=== PATIENT | male | born 1970 | race Caucasian/White ===

== ENCOUNTER 2021-10-30 15:41 | Emergency (ER) | payer OTHER, SELFPAY ==
--- NOTE | ~2021-10-30 | XR_ITS ---
EXAMINATION: XR SHOULDER, LEFT CLINICAL INFORMATION: Injury COMPARISON: None TECHNIQUE: Four views of the left shoulder. FINDINGS: The bones and soft tissues are normal. No fracture. Glenohumeral and acromioclavicular alignment is anatomic with normal joint space. No abnormal soft tissue calcifications. XR/XR shoulder LT min 2V IMPRESSION: Normal left shoulder.
--- NOTE | ~2021-10-30 | XR_ITS ---
EXAMINATION: XR HAND, LEFT CLINICAL INFORMATION: Injury. COMPARISON: None. TECHNIQUE: PA, lateral, and oblique views of the left hand. FINDINGS: No acute fractures or malalignment. Carpal rows are maintained. No unexpected radiopaque foreign bodies or subcutaneous air. XR/XR hand LT 2V IMPRESSION: No acute fractures or malalignment.
[2021-10-30 16:27] VITALS: BP 153/99; PULSE 76; RESP 18; TEMP 36.6; O2SAT 98; BMI 24.3
--- NOTE | 2021-10-31 04:11 | PC.NURSE ---
patient reporting to registration, stating that they are still in the waiting room, patient fell asleep and did not respond when name was called hours ago by triage nurse
--- NOTE | 2021-10-31 07:39 | ED.EXTPRO ---
HPI - Extremity Problem General Chief complaint: Extremity Injury, Upper Stated complaint: L Shoulder pain Time Seen by Provider: 10/31/21 07:39 Source: patient Mode of arrival: ambulatory Limitations: no limitations History of Present Illness MD Complaint: extremity pain and joint paint Onset (ago): day(s) (1) Pain Consistency: constant Location: left and upper extremity (L shoulder, L index finger) Quality: aching and dull Radiation: none Relieving factors: nothing Exacerbating factors: range of motion and exertion Associated symptoms: denies other symptoms Context: other (happened while doing finger push ups at home) Related Data Previous Rx's Medication Instructions Recorded diazepam 5 mg tablet (Valium) 5 mg PO TID PRN #12 tab 10/31/21 ibuprofen 600 mg tablet 600 mg PO Q6H PRN #30 tab 10/31/21 lidocaine 5 % topical patch 1 patch TOPICAL DAILY #30 ea 10/31/21 Allergies Allergy/AdvReac Type Severity Reaction Status Date / Time No Known Allergies Allergy Verified 10/30/21 16:27 Review of Systems Review of Systems: Constitutional : No Fever, No Chills ENT/Mouth : No Ear Pain, No Hoarseness, No sore throat Eyes: No Eye Pain, No Swelling, No Redness, No Foreign Body Cardiovascular : No Chest Pain, No SOB Respiratory : No Cough, No Dyspnea Gastrointestinal : No Nausea, No Vomiting, No Diarrhea, No abdominal Pain Genitourinary : No Dysuria, No Hematuria Musculoskeletal : positive joint pain, No Myalgias, No Joint Swelling Skin : No Skin lacerations, No rash Neuro : No Weakness, No Numbness, No Loss of Consciousness, No Dizziness, No Headache Psych : No Anxiety/Panic, No Depression Heme/Lymph: no easy bruising, no Lymphadenopathy Endocrine : No Polyuria, No Polydipsia All other systems reviewed and are negative PMFSH Past Medical History Medical History (Updated 10/31/21 @ 08:09 by Nikole Padron DO) No known health problems Social History Social History Patient Tobacco Use Status: Current everyday Tobacco user Physical Exam Vital Signs: Vital Signs: Last Vital Signs Temp 98 F 10/30/21 16:27 Pulse 76 10/30/21 16:27 Resp 18 10/30/21 16:27 BP 153/99 H 10/30/21 16:27 Pulse Ox 98 10/30/21 16:27 BMI result Body Mass Index 24.3 Appearance: Alert. Oriented X3. No acute distress. Eyes: Pupils equal, round and reactive to light. ENT: Pharynx normal. Neck: Normal inspection. Neck supple. CVS: Normal heart rate and rhythm. Pulses normal. Respiratory: No respiratory distress. Breath sounds normal. Abdomen: Soft and non-tender. Skin: Skin warm and dry. Normal skin color. Extremities: No lower extremity edema. L shoulder - pain with ROM cannot abduct or extend or keep elevated against external pressures. L index finger cannot make O or pincer grasp and maintain [place] against pressure, pain at MCP - distal NV intact Neuro: Oriented X 3. No motor deficit. No sensory deficit. MDM - Extremity (Nontraumatic) MDM Narrative Medical decision making narrative: 51 yo male with LUE non dominant hand injuries to L shoulder after doing push ups on fingertips he notes L index finger cannot strongly abduct it as it gave out doing push up he is NV intact suspect ligament injury - will place in splint and refer to ortho, also has pain with L shoulder distal NV intact - suspect rotator cuff injury Procedures Orthopedic Splinting/Casting Injury #1: Side: left Upper Extremity Injury Location: finger (index) Upper Extremity Immobilizer: volar splint and finger (other) Discharge Plan Discharge Clinical Impression: Injury of collateral ligament of finger Qualifiers: Encounter type: initial encounter Laterality: left Qualified Code(s): S69.92XA - Unspecified injury of left wrist, hand and finger(s), initial encounter Injury of left rotator cuff Qualifiers: Encounter type: initial encounter Qualified Code(s): S46.002A - Unspecified injury of muscle(s) and tendon(s) of the rotator cuff of left shoulder, initial encounter Patient Disposition: Home, Self-Care Additional Instructions: return to ED for any worsening symptoms or concerns wear splint until released you will need to see your primary care doctor for your rotator cuff and undergo physical therapy and likely MRI Prescriptions: New ibuprofen 600 mg tablet 600 mg PO Q6H PRN (Reason: pain) Qty: 30 RF: 0 diazepam [Valium] 5 mg tablet 5 mg PO TID PRN (Reason: muscle spasm) Qty: 12 RF: 0 lidocaine 5 % adhesive patch,medicated 1 patch topical DAILY Qty: 30 RF: 0 Stand Alone Forms: Work/School Release Interventions: LWBS Worksheet Last Done: 10/31/21 03:04
[2021-10-31 08:06] VITALS: BP 136/93; PULSE 77; RESP 18; O2SAT 97
[2021-10-31] MEDS: Ketorolac Tromethamine 60 MG/2 ML VIAL IM (08:12)
== END 2021-10-31 08:33 | disposition home or self-care (01) ==
PROVIDERS: Emergency Provider Emergency Medicine; PCP Internal Medicine
DX: S46.002A Unspecified injury of muscle(s) and tendon(s) of the rotator cuff of left shoulder, initial encounter (principal); S69.92XA Unspecified injury of left wrist, hand and finger(s), initial encounter; X50.1XXA Overexertion from prolonged static or awkward postures, initial encounter; Y93.B2 Activity, push-ups, pull-ups, sit-ups; Y92.019 Unspecified place in single-family (private) house as the place of occurrence of the external cause; Y99.9 Unspecified external cause status
CPT/HCPCS: 29125; 73030; 73120; 96372; 99284; J1885

== ENCOUNTER 2021-11-17 12:56 | Emergency (ER) | payer OTHER, SELFPAY ==
--- NOTE | ~2021-11-17 | XR_ITS ---
EXAMINATION: XR SHOULDER, LEFT CLINICAL INFORMATION: Left shoulder injury. COMPARISON: None TECHNIQUE: AP external rotation, Grashey, scapular Y, and axillary views of the left shoulder. FINDINGS: The bones and soft tissues are normal. No fracture. Glenohumeral and acromioclavicular alignment is anatomic with normal joint space. No abnormal soft tissue calcifications. XR/XR shoulder LT 1V IMPRESSION: Unremarkable left shoulder.
[2021-11-17 13:00] VITALS: BP 148/98; PULSE 109; RESP 17; TEMP 36.9; O2SAT 96; BMI 24.3
--- NOTE | 2021-11-17 14:54 | ED_ITS ---
HPI - Extremity Problem General Chief complaint: Extremity Problem Stated complaint: l shoulder/arm pain Time Seen by Provider: 11/17/21 14:54 Source: patient Mode of arrival: ambulatory Limitations: no limitations History of Present Illness HPI Narrative: Patient is a 51 year old male presenting to the emergency department today with left shoulder pain. Patient states that earlier this month, the patient was doing finger push ups and injured his left thumb and left shoulder. Patient states that it was getting better, then he reached for something quickly with his left hand, and now he is having pain in his left shoulder again. Patient states that he has an appointment with his primary care provider at the end of November. Patient states that he would like something to help him sleep. Patient denies any dizziness, lightheadedness, abdominal pain, nausea, vomiting, fever, chills, blurry vision, double vision, loss of vision, chest pain, difficulty breathing, shortness of breath, back pain, night sweats, pain with urination, increased urinary frequency, increased urinary urgency, blood in his urine or stool, syncope or a near syncopal episode, recent trauma or falls, bowel incontinence, bladder incontinence, bowel retention, bladder retention, or any other complaints at this time. MD Complaint: extremity pain Onset (ago): day(s) Pain Consistency: intermittent Location: left Severity scale (1-10): 3 Quality: dull Radiation: none Relieving factors: nothing Exacerbating factors: nothing Associated symptoms: denies other symptoms Related Data Previous Rx's Medication Instructions Recorded diazepam 5 mg tablet (Valium) 5 mg PO TID PRN #12 tab 10/31/21 ibuprofen 600 mg tablet 600 mg PO Q6H PRN #30 tab 10/31/21 lidocaine 5 % topical patch 1 patch TOPICAL DAILY #30 ea 10/31/21 cyclobenzaprine 10 mg tablet 10 mg PO TID 7 Days #21 tab 11/17/21 cyclobenzaprine 10 mg tablet 10 mg PO TID PRN 7 Days tab 11/17/21 Allergies Allergy/AdvReac Type Severity Reaction Status Date / Time No Known Allergies Allergy Verified 10/30/21 16:27 Review of Systems Constitutional: Constitutional: Reports no additional constitutional complaints, Denies chills, Denies fever(s) and Denies night sweats Eyes: Eyes: Reports no additional eye complaints, Denies blurry vision, Denies change in vision, Denies diplopia, Denies eye discharge, Denies loss of vision and Denies eye pain ENT: Denies dizziness Cardiovascular: Cardiovascular: Reports no additional cardiovascular complaints, Denies chest pain, Denies lightheadedness, Denies Loss of Consciousness and Denies dyspnea Respiratory: Respiratory: Reports no additional respiratory complaints and Denies dyspnea Gastrointestinal: Gastrointestinal: Reports no additional gastrointestinal complaints, Denies abdominal pain, Denies melena, Denies hematochezia, Denies change in bowel habits and Denies change in stool character Genitourinary: Genitourinary: Reports no additional male genitourinary complaints, Denies hematuria, Denies oliguria, Denies difficulty urinating, Denies dysuria, Denies urinary frequency, Denies urinary hesitancy, Denies urinary incontinence and Denies urinary urgency Musculoskeletal: Musculoskeletal: Reports no additional musculoskeletal complaints, Reports arthralgias (left shoulder pain), Denies numbness and Denies tingling Neurologic: Denies dizziness, Denies loss of vision, Denies numbness and Denies tingling Psychiatric: Psychiatric: Reports no additional psychiatric complaints Endocrine: Endocrine: Reports no additional endocrine complaints Hematologic/Lymphatic: Hematologic/Lymphatic: Reports no additional h ematologic/lymphatic complaints Allergic/Immunologic: Allergic/Immunologic: Reports no additional allergic/immunologic complaints PMFSH Past Medical History Attestation statement: The following information was validated with the patient. Medical History No known health problems Social History Social History Patient Tobacco Use Status: Current everyday Tobacco user Advance Directives: No Advance Directives Information Provided: No Physical Exam Vital Signs: Vital Signs: Last Vital Signs Temp 98.5 F 11/17/21 13:00 Pulse 109 H 11/17/21 13:00 Resp 17 11/17/21 13:00 BP 148/98 H 11/17/21 13:00 Pulse Ox 96 11/17/21 13:00 BMI result Body Mass Index 24.3 Const: General: cooperative, no acute distress, alert and awake Nutritional Appearance: well nourished Orientation/consciousness: patient oriented x3 Limitations: no limitations HENMT: Head: Yes normal to inspection and Yes atraumatic Ears: hearing grossly normal bilaterally and external ears normal General nose exam: Normal external nose present, no nasal discharge noted and no epistaxis Face and sinus: Yes normal facial exam, No abrasion and No laceration Mouth: Normal oral and palatal mucosa present, no drooling and no muffled voice Eyes: General: appearance normal, both eyes and all related structures Periorbital: periorbital findings normal Eyelids: Yes eyelids normal Conjunctivae: conjunctivae normal Pupils: Equal, round and reactive pupils present EOM: EOMs intact bilaterally Neck: Neck: Yes normal visual inspection, Yes full ROM and Yes no lymphadenopathy Chest: Chest palpation & inspection: normal inspection of the chest Resp: Effort & Inspection: normal respiratory effort and able to speak in complete sentences GI: Inspection: Yes normal to inspection Neuro: General: patient oriented x3 and moves all extremities Cranial nerves: Yes Equal, round and reactive pupils present Cognition (Neuro): normal cognition Motor exam (neuro): 5/5 motor strength present throughout Sensory Exam: Normal double simultaneous stimulation for sensation Coordinati on: [id number] test normal Extrem: General: Yes normal to inspection, Yes full ROM and Yes capillary refill normal Psych: Appearance: grossly normal Mental Status: mental status grossly normal Affect: normal affect Attitude: cooperative Thought process: Normal thought process present Thought content: Normal thought content present Insight: Good insight present (Psych) Course Course Course Narrative: left shoulder x-ray negative for any acute process MDM - Extremity (Nontraumatic) MDM Narrative Medical decision making narrative: Patient is a 51 year old male presenting to the emergency department today with left shoulder pain. Patient's physical exam was unremarkable. I explained my physical exam findings to the patient. I answered all questions asked by the patient. Patient's left arm was placed in a sling, without incident, by nursing staff. I stressed the importance of the patient taking his medication as prescribed. I stressed the importance of the patient following up with his primary care provider and an orthopedic provider. I stressed the importance of the patient returning to the emergency department immediately if his symptoms were to worsen or if he were to develop any dizziness, shortness of breath, difficulty breathing, chest pain, blurry vision, loss of vision, nausea, vomiting, abdominal pain, fever, chills, back pain, or any other complaints. Patient verbalized agreement and understanding with this treatment plan and discharge. Differential Diagnosis Differential diagnosis: Unlikely gout (rotator cuff injury, rotator cuff strain, rotator cuff sprain) Medical Records Attestation: I reviewed the patient's medical records. Discharge Plan Discharge Clinical Impression: Rotator cuff injury Qualifiers: Laterality: left Qualified Code(s): S46.002D - Unspecified injury of muscle(s) and tendon(s) of the rotator cuff of left shoulder, subsequent encounter Patient Disposition: Home, Self-Care Instructions: Rotator Cuff Injury (ED) Additional Instructions: Call to schedule a follow up appointment with an Orthopedic provider. Prescriptions: New cyclobenzaprine 10 mg tablet 10 mg PO TID PRN (Reason: muscle spasm) 7 Days RF: 0 cyclobenzaprine 10 mg tablet 10 mg PO TID 7 Days Qty: 21 RF: 0 No Action ibuprofen 600 mg tablet 600 mg PO Q6H PRN (Reason: pain) Qty: 30 RF: 0 diazepam [Valium] 5 mg tablet 5 mg PO TID PRN (Reason: muscle spasm) Qty: 12 RF: 0 lidocaine 5 % adhesive patch,medicated 1 patch topical DAILY Qty: 30 RF: 0 Referrals: Ramon Chow MD, DO [Primary Care Provider] - 2 days Interventions: ED Discharge Assessment Last Done: 11/17/21 15:42 Discharge Date/Time: 11/17/21 15:43 Print Language: Mexican
[2021-11-17] MEDS: Cyclobenzaprine HCl 10 MG TABLET PO (15:22)
[2021-11-17] MEDS: Ketorolac Tromethamine 30 MG/ML VIAL IM (15:22)
== END 2021-11-17 15:43 | disposition home or self-care (01) ==
PROVIDERS: Emergency Provider Emergency Medicine; PCP Internal Medicine
DX: S46.002D Unspecified injury of muscle(s) and tendon(s) of the rotator cuff of left shoulder, subsequent encounter (principal); X50.9XXD Other and unspecified overexertion or strenuous movements or postures, subsequent encounter; F17.200 Nicotine dependence, unspecified, uncomplicated
CPT/HCPCS: 73020; 96372; 99284; J1885

== ENCOUNTER → 2021-12-22 08:55 | Outpatient (BNVA) | payer OTHER, SELFPAY | PROVIDERS: PCP Internal Medicine; Visit Provider Physician Assistant | DX: M75.102 Unspecified rotator cuff tear or rupture of left shoulder, not specified as traumatic (principal); M12.812 Other specific arthropathies, not elsewhere classified, left shoulder | CPT/HCPCS: 99202 ==

== ENCOUNTER 2022-01-05 18:45 | Outpatient (REF) | payer OTHER, SELFPAY ==
--- NOTE | ~2022-01-05 | MR_ITS ---
EXAMINATION: MRI SHOULDER WITHOUT CONTRAST, LEFT CLINICAL INFORMATION: Anterior and posterior left shoulder pain. Weakness. COMPARISON: Left shoulder radiographs dated 11/17/2021. TECHNIQUE: Multisequence MR imaging of the left shoulder was obtained without contrast on a high-field strength scanner. FINDINGS: ROTATOR CUFF: Supraspinatus tendinosis with distal bursal surface partial tearing measuring 1.1 x 1.9 cm (AP by ML). No full-thickness rotator cuff tendon tear. No muscle atrophy or fatty infiltration. BICEPS: Mild fluid within the proximal long head biceps tendon sheath, consistent mild tenosynovitis. No measurable tendon defect. CORACOACROMIAL ARCH: The undersurface of the acromion is curved with no subacromial spur. Mild acromioclavicular osteoarthritis. LABRUM/CAPSULE: Fluid extending through the undersurface of the superior labrum, likely indicating a nondisplaced undersurface tear. GLENOHUMERAL JOINT/MARROW: Normal. MR/MR shoulder LT wo con IMPRESSION: 1. Supraspinatus tendinosis with distal bursal surface partial tearing measuring 1.1 x 1.9 cm. 2. Nondisplaced undersurface tear of the superior labrum. 3. Mild proximal long head biceps tenosynovitis without a measurable tendon tear. 4. Mild acromioclavicular osteoarthritis.
== END 2022-01-05 18:46 | disposition home or self-care (01) ==
LOC: HO.MRI 18:45
PROVIDERS: Visit Provider Physician Assistant
DX: M12.812 Other specific arthropathies, not elsewhere classified, left shoulder (principal); M75.102 Unspecified rotator cuff tear or rupture of left shoulder, not specified as traumatic
CPT/HCPCS: 73221

== ENCOUNTER 2022-01-13 08:45 | Outpatient (REF) | payer OTHER, SELFPAY | END 2022-01-13 08:46 | disposition home or self-care (01) | LOC: HO.HOSX 08:45 | PROVIDERS: Visit Provider Orthopaedic Surgery | DX: Z13.89 Encounter for screening for other disorder (principal) ==

== ENCOUNTER → 2022-01-19 09:22 | Outpatient (BNVA) | payer OTHER, SELFPAY | PROVIDERS: PCP Internal Medicine; Visit Provider Physician Assistant | DX: M75.102 Unspecified rotator cuff tear or rupture of left shoulder, not specified as traumatic (principal); M12.812 Other specific arthropathies, not elsewhere classified, left shoulder | CPT/HCPCS: 99212 ==

== ENCOUNTER 2022-01-21 17:00 | Outpatient (RCR) | payer OTHER, SELFPAY ==
--- NOTE | 2022-01-13 12:34 | MHC.PT.EP ---
[facility] [place] Office [place] Office [place] Office [address] [phone] F: [phone] F: [phone] F: [phone] F: [phone] Physical Therapy Plan of Care Date of Evaluation: Date of Surgery: n/a Diagnosis: rotator cuff tear or rupture of L shoulder Assessment: Patient is a 51 year old male presenting to PT with complaints of pain in his L shoulder. Pt reports onset of pain began about 6 weeks ago due to insidious onset. He presents today with impairments in pain, AROM, strength, and posture. 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 Pt expresses alf goal of maintaining ROM and strength, and is motivated to work towards this in PT. Clinical presentation today is most consistent with signs and sx associated with possible RC tear and pt will benefit from skilled PT to address the following problems and impairments noted upon evaluation: pain, AROM, strength, and posture. These problems limit the patient with the following functional activities: ADLs, reaching, lifting, pushing, and pulling. The prescribed treatment plan of care is medically necessary. Co-morbidities of none were identified and taken into considerations of plan of care. Pt was educated on HEP, role of PT, prognosis, POC, shoulder anatomy. Frequency and Duration: The patient will be seen 2 x week x 5 weeks Short Term Goals: Pt will demonstrate shoulder AROM equal B in 3 weeks. Pt will demonstrate improved shoulder strength by 1/3 MMT in all directions in 3 weeks. Pt will demonstrate improved postural awareness by sitting with biomechanically correct posture without cues throughout session to improve overall postural function in 2 weeks. 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 Pt will demonstrate ability to reach OH with min to no pain in 5 weeks for return to PLOF. Pt will demonstrate ability to lift household objects in 5 weeks with min to no difficulty or pain for improved tolerance to household duties. Pt will demonstrate improved SPADI score by 13 points for improved overall UE functional mobility. Treatment Plan: Modalities to reduce pain, spasms and effusion. Manual therapy to restore motion and function. Therapeutic exercise to improve strength and flexibility. Neuromuscular re-education for posture and balance. Therapeutic activities to return to functional activities of daily living. Electronically signed by: Laura Quach PT, DPT, ATC Please sign and return to therapist. Thank you for your referral.
--- NOTE | 2022-01-30 11:12 | MHC.PT.DC ---
[facility] [place] Office [place] Office [place] Office [address] [facility] [phone] F: [phone] F: [phone] F: [phone] F: [phone] Physical Therapy Discharge Report Diagnosis: rotator cuff tear or rupture of L shoulder Date of Surgery: n/a Date of Evaluation: 01/13/22 Date of Discharge: 01/30/22 Treatments to Date: 3 Cancellations to Date: 0 No Shows to Date: 2 Discharge Status: Visit Non-compliance Discharge Summary: Pt has failed to comply with [facility] attendance policy and no showed 2 appointments. Pt status unknown at this time. Electronically signed by: Laura Quach, PT, DPT, ATC Please sign and return to therapist. Thank you for your referral.
== END 2022-01-30 11:12 | disposition home or self-care (01) ==
LOC: HO.PTCHIC 17:00
PROVIDERS: PCP Internal Medicine; Visit Provider Physician Assistant
DX: M12.812 Other specific arthropathies, not elsewhere classified, left shoulder (principal); M75.102 Unspecified rotator cuff tear or rupture of left shoulder, not specified as traumatic
CPT/HCPCS: 97110; 97161

== ENCOUNTER 2022-06-04 20:55 | Emergency (ER) | payer OTHER, SELFPAY ==
--- NOTE | ~2022-06-04 | CT_ITS ---
EXAMINATION: CT FACIAL BONES WITH CONTRAST CLINICAL INFORMATION: Facial cellulitis and abscess. COMPARISON: None TECHNIQUE: Axial CT images of the facial bones were obtained following the IV administration of 85 mL Omnipaque 350 contrast. Sagittal and coronal reformats were provided and reviewed. This CT examination was performed using dose optimization techniques as appropriate, variously including the following: *Automated exposure control *Adjustment of mA and/or kV according to patient size (this includes techniques or standardized protocols for targeted exams where dose is matched to indication/reason for exam; i.e. extremities or head) *Use of iterative reconstruction technique DLP: 485 mGy-cm FINDINGS: Prominent periapical lucency adjacent to the right mandibular second premolar consistent with abscess formation. This extends through the mandibular cortex medially with the defect measuring 0.4 cm in AP dimension (axial image 80/260). There appears to be a small complex collection along the inner margin of the mandible at this level measuring up to 1.5 cm in AP dimension. There is mild hypodensity/possible collection laterally measuring up to 1.7 cm with overlying fat stranding consistent with acute cellulitis. No additional periapical abscess formation. There is no acute maxillofacial fracture. The pterygoid plates are intact. The zygomatic arches are intact. The lamina papyracea are intact. The orbital rims are intact. Mucous retention cyst versus polyp within the right sphenoid sinus. No air-fluid levels are seen. There is minimal rightward deviation of the nasal septum. The ostiomeatal complexes are clear. The lamina papyracea are intact. The ethmoid roofs are symmetric. The carotid canals are normally covered by bone. The mastoid air cells and visualized middle ear cavities are well-aerated. The orbits are normal. The TMJs are unremarkable. The imaged portions of the brain demonstrate no acute abnormality. CT/CT facial bones w con IMPRESSION: Periapical abscess at the right mandibular second premolar with extension through the medial cortex. Probable small abscess formation both medial and lateral to the mandible. Overlying stranding peripheral to the right mandible consistent with cellulitis.
[2022-06-04 21:24] VITALS: BP 111/84; PULSE 108; RESP 16; TEMP 36.6; O2SAT 95; BMI 24.3
[2022-06-05] VITALS: BP 128/87; PULSE 107; RESP 16; O2SAT 97
[2022-06-05 04:28] VITALS: BP 146/98; PULSE 99; RESP 18; TEMP 37.1; O2SAT 97
[2022-06-05 05:16] LABS: Basophils Absolute Auto 0.1 X10*3/uL (0.0-0.2); Basophils Percent Auto 0.4 % (0-2); Eosinophils Absolute Auto 0.3 X10*3/uL (0.0-0.4); Eosinophils Percent Auto 1.7 % (0-4); Hematocrit 47.7 % (42.0-52.0); Hemoglobin 16.7 g/dl (14.0-18.0); Imm Gran Abs Auto 0.05 X10*3/uL (0.00-0.03); Imm Gran Pct Auto 0.3 % (0.0-0.4); Lymphocytes Absolute Auto 1.2 X10*3/uL (1.2-4.9); Lymphocytes Percent Auto 7.9 % (20-40); MANUAL DIFF FLAG NO; Mean Corpuscular Hemoglobin 34.9 pg (27.0-33.0); Mean Corpuscular Volume 99.6 fL (80.0-98.0); Monocytes Absolute Auto 1.3 X10*3/uL (0.1-1.2); Monocytes Percent Auto 8.5 % (2-11); Neutrophils Absolute Auto 12.3 x10*3/uL (2.0-8.3); Neutrophils Percent Auto 81.2 % (45-73); Platelet Count 277 X10*3/uL (160-400); Red Blood Count 4.79 X10*6/uL (4.60-5.80); Red Cell Distribution Width 12.7 % (11.0-16.0); White Blood Count 15.1 X10*3/uL (4.8-10.8)
[2022-06-05] MEDS: 0.9 % Sodium Chloride 1,000 ML 999 ML IV (05:19)
[2022-06-05] MEDS: Piperacillin Sodium/Tazobactam 4.5 GM in 0.9 % Sodium Chloride 100 ML IV (05:21)
[2022-06-05] MEDS: Morphine Sulfate 2 MG/ML CARTRIDGE 1 MG IVPUSH (05:22)
[2022-06-05 05:36] LABS: Lactic Acid 2.2 mmol/L (0.5-2.0)
[2022-06-05] MEDS: Lidocaine HCl 1 % MPF 2 ML VIAL 4 ML INFILTRATI ×2 (05:36→05:58)
[2022-06-05 05:37] LABS: Alanine Aminotransferase 11 U/L (0-40); Albumin Level 4.2 g/dL (3.5-5.0); Alkaline Phosphatase 83 U/L (39-117); Anion Gap 15 (12-20); Aspartate Amino Transferase 15 U/L (5-37); Bilirubin Direct 0.3 mg/dL (0.0-0.5); Bilirubin Total 0.7 mg/dL (0.0-1.0); Blood Urea Nitrogen 6 mg/dL (9-16); Calcium 9.1 mg/dL (8.4-10.2); Carbon Dioxide 24 mmol/L (22-29); Chloride 105 mmol/L (96-108); Creatinine Clr Calc Pharmacy 134.1; Estimated Glomerular Filt Rate > 60; Glucose Random 99 mg/dL (60-115); Lipase 17 U/L (8-78); Potassium 4.2 mmol/L (3.3-5.1); Sodium 140 mmol/L (135-145); Total Protein 6.9 g/dL (6.5-8.0)
[2022-06-05 05:40] LABS: Troponin-I High Sensitivity < 3.5 ng/L (<3.5-35.0)
[2022-06-05] MEDS: HYDROmorphone HCl 1 MG/ML SYRINGE IVPUSH (05:57)
[2022-06-05 06:00] VITALS: BP 137/92; PULSE 96; O2SAT 98
--- NOTE | 2022-06-05 06:19 | ED.GENADULT ---
HPI - General Adult General Chief complaint: Extremity Problem Stated complaint: right side face swollen Time Seen by Provider: 06/05/22 04:39 Source: patient Mode of arrival: ambulatory Limitations: no limitations History of Present Illness HPI narrative: 51-year-old male came in for evaluation of right facial swelling and dental pain. Swelling started 3 days ago, patient contacted his dentist but was not able to get the prescription for antibiotic until he is seen by the dentist, patient came in today after worsening of the swelling and pain on the right side of the face, declined any fever chills at home. Related Data Previous Rx's Medication Instructions Recorded cephalexin 500 mg capsule 500 mg PO TID #30 caps 01/30/22 meloxicam 15 mg tablet 15 mg PO DAILY #14 tabs 01/30/22 Allergies Allergy/AdvReac Type Severity Reaction Status Date / Time No Known Allergies Allergy Verified 01/30/22 15:39 Review of Systems Review of Systems: All other systems are reviewed and are negative Constitutional: Reports as per HPI and Reports no additional constitutional complaints Eyes: Reports as per HPI and Reports no additional eye complaints Reports system reviewed and no additional complaints, except as documented Cardiovascular: Reports as per HPI and Reports no additional cardiovascular complaints Respiratory: Reports as per HPI and Reports no additional respiratory complaints Gastrointestinal: Reports as per HPI and Reports no additional gastrointestinal complaints Genitourinary: Reports no additional female genitourinary complaints Musculoskeletal: Reports no additional musculoskeletal complaints Skin/Breast: Reports system reviewed and no additional complaints, except as docu Psychiatric: Reports no additional psychiatric complaints Endocrine: Reports no additional endocrine complaints Hematologic/Lymphatic: Reports no additional hematologic/lymphatic complaints Allergic/Immunologic: Reports no additional allergic/immunologic complaints Reports system reviewed and no additional complaints, except as documented and Reports Abnormal speech present [facility] [place] Past Medical History Medical History No known health problems Social History Social History Alcohol intake: current Alcohol intake frequency: holidays/special occasions only Patient Tobacco Use Status: Current everyday Tobacco user Smoked in Last 30 Days: Yes Use of substances other than those prescribed or required for medical reasons: Yes Substance Use Type: Marijuana Substance Use Frequency: Occasionally Advance Directives: No Advance Directives Information Provided: No Current occupational status: employed 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 Blood pressure normal. Heart rate normal. Respiration rate normal. Temperature normal. Oxygen saturation normal. Appearance: Alert. Oriented X3. No acute distress. Head: Normal external exam. Normocephalic. Atraumatic. No Camp signs noted. No raccoon eyes noted Dental exam: Right mandibular and submandibular swelling with tenderness no redness of the skin, tender infected right lower 2nd molar tooth with tender gum around it, no definitive fluctuation around the tooth. Eyes: PERRLA. EOMI. Conjunctiva and sclera normal. Eyelids normal. ENT: TM's Normal. Pharynx normal. Uvula midline. Moist mucous membranes. No trismus noted. No drooling noted. No muffled voice noted. Neck: Normal inspection. Neck supple. FROM. No adenopathy. Thyroid Normal. No meningeal signs. No neck mass noted. CVS: Normal heart rate and rhythm. Heart sound normal. No murmurs noted. Pulses normal throughout. Respiratory: No respiratory distress. Painless inspiration. Breath sounds normal. No wheezes/rales/rhonchi noted. Chest nontender. No accessory muscle usage noted or decreased air movement noted. Abdomen: Soft and nontender. Bowel sounds normal in all 4 quadrants. No distention noted. No organomegaly noted. No visible injury noted. Back: No CVA tenderness. Full range of motion noted. Skin: Skin warm and dry. Normal skin color. Normal skin turgor. No rashes/lesions/lacerations noted. Extremities: No lower extremity edema. Extremities exhibit normal range of motion. Extremities nontender. Neuro: Oriented X 3. Cranial nerve exam: II-XII are grossly intact No motor deficit. No sensory deficit. Reflexes normal. Course Course Course Narrative: Patient was given pain medication and lidocaine was used for local anesthesia, using scalpel to the gum area 2nd to the lower molar tooth with no pus drainage, will obtain facial CT. Case signed out to Dr. Nieves to follow-up on the CT and dispo accordingly. Reevaluation(s) Reevaluation #1: Patient is tachycardic, WBCs elevation patient met SIRS criteria at 05:00 a.m. (patient had long wait in the waiting room), slight elevation of lactic acid. Patient received IV fluid and Zosyn. Signed out to Dr. Mccray to check CT face. Time: 05:33 Medical Decision Making Lab Data Lab results reviewed: Yes I reviewed the patient's lab results. Result diagrams: 06/05/22 05:05 06/05/22 05:05 Labs: Lab Results 06/05/22 06/05/22 06/05/22 Range/Units 05:05 05:05 05:05 WBC 15.1 H (4.8-10.8) X10*3/uL RBC 4.79 (4.60-5.80) X10*6/uL Hgb 16.7 (14.0-18.0) g/dl Hct 47.7 (42.0-52.0) % MCV 99.6 H (80.0-98.0) fL MCH 34.9 H (27.0-33.0) pg MCHC 35.0 (31.0-36.0) g/dl RDW 12.7 (11.0-16.0) % Plt Count 277 (160-400) X10*3/uL MPV 10.0 (9.4-12.4) fL Immature Gran % (Auto) 0.3 (0.0-0.4) % Neut % (Auto) 81.2 H (45-73) % Lymph % (Auto) 7.9 L (20-40) % Bartholomew % (Auto) 8.5 (2-11) % Eos % (Auto) 1.7 (0-4) % Baso % (Auto) 0.4 (0-2) % Lymph # (Auto) 1.2 (1.2-4.9) X10*3/uL Bartholomew # (Auto) 1.3 H (0.1-1.2) X10*3/uL Eos # (Auto) 0.3 (0.0-0.4) X10*3/uL Baso # (Auto) 0.1 (0.0-0.2) X10*3/uL Abs Immat Gran (auto) 0.05 H (0.00-0.03) X10*3/uL Absolute Neuts (auto) 12.3 H (2.0-8.3) x10*3/uL Absolute Nucleated RBC 0.000 (0.0-0.012) X10*3/uL Nucleated RBC % (auto) 0.0 (0.0-0.2) /100WBC Sodium 140 (135-145) mmol/L Potassium 4.2 (3.3-5.1) mmol/L Chloride 105 (96-108) mmol/L Carbon Dioxide 24 (22-29) mmol/L Anion Gap 15 (12-20) BUN 6 L (9-16) mg/dL Creatinine 0.68 (0.5-1.4) mg/dL Estim Creat Clear Calc 134.1 Estimated GFR > 60 Random Glucose 99 (60-115) mg/dL Lactic Acid 2.2 H* (0.5-2.0) mmol/L Calcium 9.1 (8.4-10.2) mg/dL Total Bilirubin 0.7 (0.0-1.0) mg/dL Direct Bilirubin 0.3 (0.0-0.5) mg/dL AST 15 (5-37) U/L ALT 11 (0-40) U/L Alkaline Phosphatase 83 (39-117) U/L Troponin I High Sens (<3.5-35.0) ng/L Total Protein 6.9 (6.5-8.0) g/dL Albumin 4.2 (3.5-5.0) g/dL Lipase 17 (8-78) U/L 06/05/22 Range/Units 05:05 WBC (4.8-10.8) X10*3/uL RBC (4.60-5.80) X10*6/uL Hgb (14.0-18.0) g/dl Hct (42.0-52.0) % MCV (80.0-98.0) fL MCH (27.0-33.0) pg MCHC (31.0-36.0) g/dl RDW (11.0-16.0) % Plt Count (160-400) X10*3/uL MPV (9.4-12.4) fL Immature Gran % (Auto) (0.0-0.4) % Neut % (Auto) (45-73) % Lymph % (Auto) (20-40) % Bartholomew % (Auto) (2-11) % Eos % (Auto) (0-4) % Baso % (Auto) (0-2) % Lymph # (Auto) (1.2-4.9) X10*3/uL Bartholomew # (Auto) (0.1-1.2) X10*3/uL Eos # (Auto) (0.0-0.4) X10*3/uL Baso # (Auto) (0.0-0.2) X10*3/uL Abs Immat Gran (auto) (0.00-0.03) X10*3/uL Absolute Neuts (auto) (2.0-8.3) x10*3/uL Absolute Nucleated RBC (0.0-0.012) X10*3/uL Nucleated RBC % (auto) (0.0-0.2) /100WBC Sodium (135-145) mmol/L Potassium (3.3-5.1) mmol/L Chloride (96-108) mmol/L Carbon Dioxide (22-29) mmol/L Anion Gap (12-20) BUN (9-16) mg/dL Creatinine (0.5-1.4) mg/dL Estim Creat Clear Calc Estimated GFR Random Glucose (60-115) mg/dL Lactic Acid (0.5-2.0) mmol/L Calcium (8.4-10.2) mg/dL Total Bilirubin (0.0-1.0) mg/dL Direct Bilirubin (0.0-0.5) mg/dL AST (5-37) U/L ALT (0-40) U/L Alkaline Phosphatase (39-117) U/L Troponin I High Sens < 3.5 (<3.5-35.0) ng/L Total Protein (6.5-8.0) g/dL Albumin (3.5-5.0) g/dL Lipase (8-78) U/L Discharge Plan Discharge Clinical Impression: Cellulitis of face Patient Disposition: Still a Patient Prescriptions: No Action cephalexin 500 mg capsule 500 mg PO TID Qty: 30 0RF meloxicam 15 mg tablet 15 mg PO DAILY Qty: 14 0RF
[2022-06-05] MEDS: iohexoL 350 MG/ML 100 ML INFUS..BTL 85 ML IV (06:35)
[2022-06-05 07:10] VITALS: BP 144/97; PULSE 91; RESP 16; O2SAT 96
[2022-06-05 07:15] LABS: Reflex Lactate? Lactic Acid Added
[2022-06-05 07:39] LABS: Lactic Acid 0.7 mmol/L (0.5-2.0)
[2022-06-05] MEDS: Ketorolac Tromethamine 30 MG/ML VIAL 15 MG IVPUSH (08:17)
== END 2022-06-05 08:28 | disposition home or self-care (01) ==
PROVIDERS: Student in an Organized Health Care Education/Training Program; Emergency Provider Emergency Medicine; PCP Internal Medicine
DX: L03.211 Cellulitis of face (principal); K04.7 Periapical abscess without sinus; R00.0 Tachycardia, unspecified
CPT/HCPCS: 36415; 41800; 70487; 80048; 80076; 83605; 83690; 84484; 85025; 87040; 96365; 96375; 99284; 99285; J1170; J1885; J2270; J2543; Q9967

== ENCOUNTER 2022-12-24 03:30 | Emergency (ER) | payer OTHER, SELFPAY ==
--- NOTE | ~2022-12-24 | XR_ITS ---
EXAMINATION: XR SACRUM AND COCCYX CLINICAL INFORMATION: Pain after fall COMPARISON: None TECHNIQUE: 2 views of the sacrum and 2 views of the coccyx were obtained. FINDINGS: No fracture of the sacrum or coccyx. Sacroiliac joints are symmetric. Pelvic calcifications are likely vascular in nature. Visualized portions of the lower lumbar spine. Degenerative changes. XR/XR sacrum coccyx min 2V IMPRESSION: No fracture of the sacrum or coccyx.
[2022-12-24 05:09] VITALS: BP 131/88; PULSE 92; RESP 16; TEMP 36.7; O2SAT 97; BMI 22.9
[2022-12-24 07:54] VITALS: BP 116/81; PULSE 90; RESP 18; TEMP 37; O2SAT 97
[2022-12-24 08:35] VITALS: RESP 16
--- NOTE | 2022-12-24 08:50 | ED.FALL ---
HPI - Fall General Chief Complaint: Fall Stated Complaint: fall Time Seen by Provider: 12/24/22 08:21 Source: patient Mode of arrival: ambulatory History of Present Illness HPI Narrative: 52y/o male w/no sig PMHx presenting to the ED c/o diffuse myalgias and low back/buttock/coccyx pain s/p mechanical slip & fall on ice 4 days ago. Denies symptoms prior to fall. States he was wearing his backpack and arched over the backpack on the fall, unknown head trauma, denies LOC. Denies FOSTER, weakness, numbness/tingling, loss of bowel/bladder contol, fever, N/V, hematuria. states he has taken aspirin without relief. MD complaint: fall Onset (ago): day(s) Related Data Previous Rx's Medication Instructions Recorded cephalexin 500 mg capsule 500 mg PO TID #30 caps 01/30/22 meloxicam 15 mg tablet 15 mg PO DAILY #14 tabs 01/30/22 amoxicillin 875 mg-potassium 1 tab PO Q12H 5 days #10 tabs 06/05/22 clavulanate 125 mg tablet acetaminophen 500 mg tablet 500 mg PO Q6H PRN fever or pain 12/24/22 (Tylenol Extra Strength) #14 tabs cyclobenzaprine 5 mg tablet 5 mg PO Q8H PRN pain (scale score 12/24/22 7-10) 5 days #14 tabs lidocaine 5 % topical patch 1 patch topical DAILY PRN pain #30 12/24/22 (Lidoderm) ea naproxen 500 mg tablet 500 mg PO BID PRN pain 10 days #20 12/24/22 tabs Allergies Allergy/AdvReac Type Severity Reaction Status Date / Time No Known Allergies Allergy Verified 01/30/22 15:39 Review of Systems Review of Systems: Constitutional: No Fever, No Chills ENT/Mouth: No Ear Pain, No Nasal Congestion, No sore throat, No Rhinorrhea, No Swallowing Difficulty Cardiovascular: No Chest Pain, No SOB Respiratory: No Cough, No Sputum, No Wheezing Gastrointestinal: No Nausea, No Vomiting, No Diarrhea, No Constipation, No Abdominal pain Genitourinary: No Dysuria, No Urinary Frequency, No Hematuria, No Urinary Incontinence/retention, No Urgency, No Flank Pain Musculoskeletal: +back pain, +neck pain, + myalgias Skin: No Skin Lesions, No rash Neuro: No Weakness, No Numbness, No Paresthesias, Unknown head trauma, No LOC PMFSH Past Medical History Attestation statement: The following information was validated with the patient. 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 Physical Exam Vital Signs: Vital Signs: Last Vital Signs Temp 98.6 F 12/24/22 07:54 Pulse 90 12/24/22 07:54 Resp 16 12/24/22 08:35 BP 116/81 12/24/22 07:54 Pulse Ox 97 12/24/22 07:54 O2 Del Method 12/24/22 07:54 BMI result Body Mass Index 22.9 Const: General: cooperative, healthy appearing, no acute distress, alert and awake Orientation/consciousness: patient oriented x3 Limitations: no limitations HEENT: Head: Yes normal to inspection and Yes atraumatic Ears: hearing grossly normal bilaterally General nose exam: Normal external nose present Face and sinus: Yes normal facial exam Eyes: General: appearance normal, both eyes and all related structures EOM: EOMs intact bilaterally Neck: Other: No midline spinous tenderness/step-off or deformity Neck: Yes normal visual inspection, Yes no meningeal signs and No anterior neck swelling Resp: Effort & Inspection: normal respiratory effort and no respiratory distress Auscultation: clear to auscultation bilaterally Cardio: Rate: regular rate Rhythm: regular rhythm Heart sounds: S1 normal heart sound present and S2 normal heart sound present GI: Inspection: Yes normal to inspection Palpation (GI): Soft to palpation, nontender, no guarding and not rigid : General: Yes no CVA tenderness Back/Spine/Pelvis: Back: no CVA tenderness Cervical Spine: cervical muscular tenderness Thoracic/Lumbar Spine: paraspinal muscle tenderness bilaterally in the lower lumbar Coccyx: Coccyx tenderness present Negative for associated swelling Skin: Rashes: no rashes Wounds: no wounds Neuro: Other: Strength intact throughout. No saddle anesthesia. Sensation intact to light touch. Neurovascular intact distally General: patient oriented x3, gait normal, tone normal, moves all extremities, no meningeal signs and no focal motor deficits Gait exam (Neuro): Normal gait present Extrem: General: Yes normal to inspection Course Course Course Narrative: XR sacrum coccyx min 2V IMPRESSION: No fracture of the sacrum or coccyx. ? >> patient given list of homeless shelters Results discussed with patient including worrisome signs and symptoms and strict return precautions, and when to return to the emergency department. They verbalized understanding and feel safe for discharge at this time. Medications Administered Discontinued Medications Generic Name Dose Route Start Last Admin Trade Name Freq PRN Reason Stop Dose Admin Cyclobenzaprine HCl 10 mg 12/24/22 10:15 12/24/22 10:33 Cyclobenzaprine Hcl 10 Mg Tablet PO 12/24/22 10:16 10 mg ONCE ONE Administration Ketorolac Tromethamine 30 mg 12/24/22 10:15 12/24/22 10:38 Ketorolac Tromethamine 30 Mg/Ml Vial IM 12/24/22 10:16 30 mg ONCE ONE Administration Lidocaine 1 patch 12/24/22 10:15 12/24/22 10:33 Lidocaine 4 % Patch Adh..Patch TRANSDERMA 12/24/22 10:16 1 patch ONCE ONE Administration Protocol Medical Decision Making Medical Decision Making [facility] Narrative: 52y/o male w/no sig PMHx presenting to the ED c/o diffuse myalgias and low back/buttock/coccyx pain s/p mechanical slip & fall on ice 4 days ago. On exam vital signs stable, NAD, nontoxic appearing, no midline spinous tenderness throughout, buttock/coccygeal tenderness noted. Paraspinal tenderness noted, no red, no saddle anesthesia. Ambulating with steady gait. Concern for fracture vs MSK spasm pain/strain. Low suspicion for renal stone/pyelo, cauda equina/cord compression or epidural abscess. Patient states he is homeless and has nowhere to go. Plan: Coccygeal x-ray, pain control, skilled nursing information Please refer to course for remaining clinical decision making, interpretation of labs/imaging results, and discussions with consultants and/or family members. Differential Diagnosis Differential Diagnoses: The differential diagnosis associated with the presentation includes as above Lab Data MDM Lab Attestation statement: I reviewed the patient's lab results. Radiology Impression Discussion of test interpretation with radiology: I have reviewed the radiologist's reading. External Record Review External record reviewed: Outpatient record and Prior outpatient labs Prescription Management I considered prescription management with: Pain Medication Discharge Plan Discharge Clinical Impression: Coccygeal contusion, Myalgia Patient Disposition: Home, Self-Care Instructions: Contusion in Adults (ED), Musculoskeletal Pain (ED) Additional Instructions: Your pain is likely musculoskeletal Flexeril is a muscle relaxer, take at night as it makes you drowsy, do not drive, drink alcohol, or operate machinery while taking it Naproxen as an anti-inflammatory / pain medication, take with food Lidoderm patches are numbing patches, apply to painful area In addition take Tylenol at home If symptoms persist or worsen, pain becomes unbearable, you developed urinary retention or incontinence, or weakness return to the ED Prescriptions: New acetaminophen [Tylenol Extra Strength] 500 mg tablet 500 mg PO Q6H PRN (Reason: fever or pain) Qty: 14 0RF lidocaine [Lidoderm] 5 % adhesive patch,medicated 1 patch topical DAILY MDD remove after 12 hours PRN (Reason: pain) Qty: 30 0RF Rx Instructions: leave on most painful area for up to 12 hrs naproxen 500 mg tablet 500 mg PO BID PRN (Reason: pain) 10 Days Qty: 20 0RF cyclobenzaprine 5 mg tablet 5 mg PO Q8H PRN (Reason: pain (scale score 7-10)) 5 Days Qty: 14 0RF No Action amoxicillin-pot clavulanate 875-125 mg tablet 1 tab PO Q12H 5 Days Qty: 10 0RF Rx Instructions: Take first dose this morning. cephalexin 500 mg capsule 500 mg PO TID Qty: 30 0RF meloxicam 15 mg tablet 15 mg PO DAILY Qty: 14 0RF Referrals: Physician,None [Primary Care Provider] - Interventions: ED Discharge Assessment Last Done: 12/24/22 10:40 Discharge Date/Time: 12/24/22 10:41
[2022-12-24] MEDS: Cyclobenzaprine HCl 10 MG TABLET PO (10:33)
[2022-12-24] MEDS: Lidocaine 4 % Patch ADH..PATCH 1 PATCH TRANSDERMA (10:33)
[2022-12-24] MEDS: Ketorolac Tromethamine 30 MG/ML VIAL IM (10:38)
== END 2022-12-24 10:41 | disposition home or self-care (01) ==
PROVIDERS: Emergency Provider Student in an Organized Health Care Education/Training Program
DX: S30.0XXA Contusion of lower back and pelvis, initial encounter (principal); S39.92XA Unspecified injury of lower back, initial encounter; M79.10 Myalgia, unspecified site; W01.0XXA Fall on same level from slipping, tripping and stumbling without subsequent striking against object, initial encounter; Y93.9 Activity, unspecified; Y92.9 Unspecified place or not applicable; Y99.9 Unspecified external cause status; Z79.899 Other long term (current) drug therapy
CPT/HCPCS: 72220; 96372; 99284; J1885

== ENCOUNTER 2023-02-03 23:48 | Emergency (ER) | payer OTHER, SELFPAY ==
[2023-02-03 23:52] VITALS: BP 131/87; RESP 18; TEMP 36.8; O2SAT 94; BMI 24.3
[2023-02-04 00:12] LABS: Basophils Absolute Auto 0.1 X10*3/uL (0.0-0.2); Eosinophils Absolute Auto 0.7 X10*3/uL (0.0-0.4); Eosinophils Percent Auto 6.6 % (0-4); Hematocrit 44.7 % (42.0-52.0); Hemoglobin 15.4 g/dl (14.0-18.0); Imm Gran Abs Auto 0.04 X10*3/uL (0.00-0.03); Imm Gran Pct Auto 0.4 % (0.0-0.4); Lymphocytes Absolute Auto 2.7 X10*3/uL (1.2-4.9); MANUAL DIFF FLAG NO; Mean Corpuscular HGB Conc 34.5 g/dl (31.0-36.0); Mean Corpuscular Hemoglobin 33.6 pg (27.0-33.0); Mean Corpuscular Volume 97.6 fL (80.0-98.0); Mean Platelet Volume 9.5 fL (9.4-12.4); Monocytes Percent Auto 8.5 % (2-11); Neutrophils Absolute Auto 6.7 x10*3/uL (2.0-8.3); Neutrophils Percent Auto 59.5 % (45-73); Platelet Count 272 X10*3/uL (160-400); Red Blood Count 4.58 X10*6/uL (4.60-5.80); Red Cell Distribution Width 12.8 % (11.0-16.0); White Blood Count 11.2 X10*3/uL (4.8-10.8)
[2023-02-04 00:29] LABS: Anion Gap 13 (12-20); Blood Urea Nitrogen 13 mg/dL (9-16); Calcium 9.5 mg/dL (8.4-10.2); Carbon Dioxide 26 mmol/L (22-29); Chloride 106 mmol/L (96-108); Creatinine Clr Calc Pharmacy 114.2; Estimated Glomerular Filt Rate > 60; Glucose Random 84 mg/dL (60-115); Potassium 4.6 mmol/L (3.3-5.1); Sodium 140 mmol/L (135-145)
[2023-02-04 01:21] LABS: B Type Natriuretic Peptide < 10 pg/mL (<100)
--- NOTE | 2023-02-04 01:40 | ED.GENADULT ---
HPI - General Adult General Chief complaint: Extremity Problem Stated complaint: legs swollen, body fatigue Time Seen by Provider: 02/04/23 01:36 Source: patient Mode of arrival: ambulatory Limitations: no limitations History of Present Illness HPI narrative: Patient homeless comes here for leg swelling specially in the evening. Patient denies any shortness of breath or liver problems for hours and walks a lot Related Data Previous Rx's Medication Instructions Recorded cephalexin 500 mg capsule 500 mg PO TID #30 caps 01/30/22 meloxicam 15 mg tablet 15 mg PO DAILY #14 tabs 01/30/22 amoxicillin 875 mg-potassium 1 tab PO Q12H 5 days #10 tabs 06/05/22 clavulanate 125 mg tablet acetaminophen 500 mg tablet 500 mg PO Q6H PRN fever or pain 12/24/22 (Tylenol Extra Strength) #14 tabs cyclobenzaprine 5 mg tablet 5 mg PO Q8H PRN pain (scale score 12/24/22 7-10) 5 days #14 tabs lidocaine 5 % topical patch 1 patch topical DAILY PRN pain #30 12/24/22 (Lidoderm) ea naproxen 500 mg tablet 500 mg PO BID PRN pain 10 days #20 12/24/22 tabs Allergies Allergy/AdvReac Type Severity Reaction Status Date / Time No Known Allergies Allergy Verified 01/30/22 15:39 Review of Systems Review of Systems: Yes all other systems are reviewed and are negative PMFSH Past Medical History Medical History No known health problems Social History Social History Alcohol intake: current Alcohol intake frequency: holidays/special occasions only Alcohol type: beer Patient Tobacco Use Status: Current everyday Tobacco user Smoked in Last 30 Days: Yes Use of substances other than those prescribed or required for medical reasons: Yes Substance Use Type: Marijuana Substance Use Frequency: Weekly Advance Directives: No Advance Directives Information Provided: Yes Current occupational status: employed 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 Oriented X3. No acute distress. Eyes:no pallor ENT: Pharynx normal. Oral Mucosa moist Neck: Normal inspection. Neck supple. CVS: Normal heart rate and rhythm. Pulses normal. Respiratory: No respiratory distress. Equal air entry bilateral, no wheezing/rales/rhonchi Abdomen: Soft and nontender. Bowel sounds are present, no mass palpable, no CVA tenderness Skin: Skin warm and dry. Normal skin color. Normal skin turgor. Extremities: Trace lower extremity edema. No calf tenderness Neuro: Oriented X 3. No motor deficit. Medical Decision Making Lab Data [facility] Lab Attestation statement: I reviewed the patient's lab results. 02/04/23 00:08 02/04/23 00:08 Labs: Lab Results 02/04/23 02/04/23 02/04/23 Range/Units 00:08 00:08 00:08 WBC 11.2 H (4.8-10.8) X10*3/uL RBC 4.58 L (4.60-5.80) X10*6/uL Hgb 15.4 (14.0-18.0) g/dl Hct 44.7 (42.0-52.0) % MCV 97.6 (80.0-98.0) fL MCH 33.6 H (27.0-33.0) pg MCHC 34.5 (31.0-36.0) g/dl RDW 12.8 (11.0-16.0) % Plt Count 272 (160-400) X10*3/uL MPV 9.5 (9.4-12.4) fL Immature Gran % (Auto) 0.4 (0.0-0.4) % Neut % (Auto) 59.5 (45-73) % Lymph % (Auto) 24.0 (20-40) % Mcpherson % (Auto) 8.5 (2-11) % Eos % (Auto) 6.6 H (0-4) % Baso % (Auto) 1.0 (0-2) % Lymph # (Auto) 2.7 (1.2-4.9) X10*3/uL Mcpherson # (Auto) 1.0 (0.1-1.2) X10*3/uL Eos # (Auto) 0.7 H (0.0-0.4) X10*3/uL Baso # (Auto) 0.1 (0.0-0.2) X10*3/uL Abs Immat Gran (auto) 0.04 H (0.00-0.03) X10*3/uL Absolute Neuts (auto) 6.7 (2.0-8.3) x10*3/uL Absolute Nucleated RBC 0.000 (0.0-0.012) X10*3/uL Nucleated RBC % (auto) 0.0 (0.0-0.2) /100WBC Sodium 140 (135-145) mmol/L Potassium 4.6 (3.3-5.1) mmol/L Chloride 106 (96-108) mmol/L Carbon Dioxide 26 (22-29) mmol/L Anion Gap 13 (12-20) BUN 13 (9-16) mg/dL Creatinine 0.79 (0.5-1.4) mg/dL Estim Creat Clear Calc 114.2 Estimated GFR > 60 Random Glucose 84 (60-115) mg/dL Calcium 9.5 (8.4-10.2) mg/dL B-Natriuretic Peptide < 10 (<100) pg/mL Discharge Plan Discharge Clinical Impression: Lower extremity edema Patient Disposition: Home, Self-Care Instructions: Leg Edema (ED) Additional Instructions: Do not keep standing for long hours Keep the leg elevated Prescriptions: No Action amoxicillin-pot clavulanate 875-125 mg tablet 1 tab PO Q12H 5 Days Qty: 10 0RF Rx Instructions: Take first dose this morning. acetaminophen [Tylenol Extra Strength] 500 mg tablet 500 mg PO Q6H PRN (Reason: fever or pain) Qty: 14 0RF lidocaine [Lidoderm] 5 % adhesive patch,medicated 1 patch topical DAILY MDD remove after 12 hours PRN (Reason: pain) Qty: 30 0RF Rx Instructions: leave on most painful area for up to 12 hrs naproxen 500 mg tablet 500 mg PO BID PRN (Reason: pain) 10 Days Qty: 20 0RF cyclobenzaprine 5 mg tablet 5 mg PO Q8H PRN (Reason: pain (scale score 7-10)) 5 Days Qty: 14 0RF cephalexin 500 mg capsule 500 mg PO TID Qty: 30 0RF meloxicam 15 mg tablet 15 mg PO DAILY Qty: 14 0RF Interventions: ED Discharge Assessment Last Done: 02/04/23 05:10 Discharge Date/Time: 02/04/23 05:21
== END 2023-02-04 05:21 | disposition home or self-care (01) ==
PROVIDERS: Physician Assistant; Emergency Provider Internal Medicine
DX: R60.0 Localized edema (principal); R53.83 Other fatigue; R06.02 Shortness of breath; Z79.899 Other long term (current) drug therapy; F17.210 Nicotine dependence, cigarettes, uncomplicated; Z71.6 Tobacco abuse counseling
CPT/HCPCS: 36415; 80048; 83880; 85025; 99283; 99284

== ENCOUNTER 2024-02-08 00:21 | Emergency (ER) | payer SELFPAY ==
--- NOTE | ~2024-02-08 | XR_ITS ---
EXAMINATION: XR PELVIS CLINICAL INFORMATION: Fall, pain COMPARISON: None available. TECHNIQUE: AP view of the pelvis. FINDINGS: Alignment across the hips is anatomic with slight joint space narrowing and acetabular spurring bilaterally. No acute fracture is seen. Sacroiliac joints and pubic symphysis appear intact. XR/XR pelvis 1-2V IMPRESSION: No acute findings identified.
[2024-02-08 00:58] VITALS: BP 118/86; PULSE 89; RESP 18; TEMP 536.9; TEMP 998.4; O2SAT 95; BMI 24.4
[2024-02-08 03:58] VITALS: BP 106/81; PULSE 108; TEMP 36.7; O2SAT 97
[2024-02-08 06:14] VITALS: BP 124/79; PULSE 81; RESP 18; TEMP 36.6; O2SAT 97
--- NOTE | 2024-02-08 06:37 | ED_ITS ---
HPI - Fall General Chief Complaint: Fall Stated Complaint: Fall Time Seen by Provider: 02/08/24 06:28 Source: patient Mode of arrival: ambulatory Limitations: no limitations History of Present Illness HPI Narrative: 53 yo male presents to the ER for evaluation of tailbone pain after she slipped and fell walking down 3 stairs. He fell directly on his bottom. He felt a zing up his entire spine when he fell. He reports pain in his tailbone and lower back. He states it is worse with movement. He denies any radiation of the pain. No urinary problems. He denies any other injuries when he fell, no head strike of LOC. He is not on blood thinners. complaint: fall Onset (ago): hour(s) Fall from: standing Fall witnessed: no Place fall occurred: home Loss of consciousness: none Prolonged down time: no Symptoms prior to fall: none Context: tripped/slipped Location of injury: buttocks Severity: moderate Quality: sharp and aching Associated symptoms (after fall): denies Related Data Previous Rx's ?Medication ?Instructions ?Recorded cephalexin 500 mg capsule 500 mg PO TID #30 caps 01/30/22 meloxicam 15 mg tablet 15 mg PO DAILY #14 tabs 01/30/22 amoxicillin 875 mg-potassium 1 tab PO Q12H 5 days #10 tabs 06/05/22 clavulanate 125 mg tablet acetaminophen 500 mg tablet 500 mg PO Q6H PRN fever or pain 12/24/22 (Tylenol Extra Strength) #14 tabs cyclobenzaprine 5 mg tablet 5 mg PO Q8H PRN pain (scale score 12/24/22 7-10) 5 days #14 tabs lidocaine 5 % topical patch 1 patch topical DAILY PRN pain #30 12/24/22 (Lidoderm) ea naproxen 500 mg tablet 500 mg PO BID PRN pain 10 days #20 12/24/22 tabs lidocaine 5 % topical patch 1 patch topical DAILY #15 ea 02/08/24 naproxen 500 mg tablet 500 mg PO BID PRN pain #20 tabs 02/08/24 Allergies Allergy/AdvReac Type Severity Reaction Status Date / Time No Known Allergies Allergy Verified 02/08/24 00:59 Review of Systems Review of Systems: Yes all other systems are reviewed and are negative [facility] Past Medical History Medical History No known health problems Social History Social History Alcohol intake: current Alcohol intake frequency: holidays/special occasions only Alcohol type: beer Patient Tobacco Use Status: Current everyday Tobacco user Smoked in Last 30 Days: Yes Substance Use Type: Marijuana Substance Use Frequency: Occasionally Advance Directives: No Advance Directives Information Provided: Yes Current occupational status: employed 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 Oriented X3. No acute distress. HEENT: normal external inspection Neck: Normal inspection. Neck supple. CVS: Normal heart rate and rhythm. Pulses normal. Respiratory: No respiratory distress. Breath sounds normal. Abdomen: Soft and nontender. +BS x4 Back: normal inspection, no ecchymosis. tenderness of the coccyx. no palpable crepitus. mild midline tenderness of L5. mild soft tissue tenderness of bilateral lower back. Skin: Skin warm and dry. Normal skin color. Normal skin turgor. No rashes. Extremities: No lower extremity edema. No joint swelling. Neuro/psych: Oriented X 3. No motor deficit. No sensory deficit. CN II-XII intact. Normal speech and cognition. Medical Decision Making Differential Diagnosis Differential Diagnoses: The differential diagnosis associated with the pr esentation includes trauma - compression fracture, coccyx/sacral fracture, osteoporosis, nerve root compression, radiculopathy, plexopathy, degenerative disc disease, disc herniation, spinal stenosis, sacroiliac joint dysfunction, facet joint injury, and less likely infection?like abscess or diskitis Independent Interpretation I performed an independent interpretation of an: Plain X-Ray Interpretation: no acute fractures, agree w/ radiology read Radiology Impression Discussion of test interpretation with radiology: I have reviewed the radiologist's reading. Radiologist Impression: EXAMINATION: XR PELVIS CLINICAL INFORMATION: Fall, pain COMPARISON: None available. TECHNIQUE: AP view of the pelvis. FINDINGS: Alignment across the hips is anatomic with slight joint space narrowing and acetabular spurring bilaterally. No acute fracture is seen. Sacroiliac joints and pubic symphysis appear intact. XR/XR pelvis 1-2V IMPRESSION: No acute findings identified. External Record Review External record reviewed: Outpatient record and Prior outpatient radiology Prescription Management I considered prescription management with: Pain Medication Critical Care Time Critical Care Time Critical Care Time: No Discharge Plan Discharge Clinical Impression: Coccyx contusion Patient Disposition: Home, Self-Care Instructions: Acute Low Back Pain (ED), Contusion in Adults (ED) Additional Instructions: Your x-ray today was normal. Use ice several times per day for the next 48 hours. Take Motrin and/or Tylenol as needed for pain. Follow up with your doctor as needed. Prescriptions: New lidocaine 5 % adhesive patch,medicated 1 patch topical DAILY Qty: 15 0RF Rx Instructions: leave on most painful area for up to 12 hrs naproxen 500 mg tablet 500 mg PO BID PRN (Reason: pain) Qty: 20 0RF No Action amoxicillin-pot clavulanate 875-125 mg tablet 1 tab PO Q12H 5 Days Qty: 10 0RF Rx Instructions: Take first dose this morning. acetaminophen [Tylenol Extra Strength] 500 mg tablet 500 mg PO Q6H PRN (Reason: fever or pain) Qty: 14 0RF lidocaine [Lidoderm] 5 % adhesive patch,medicated 1 patch topical DAILY MDD remove after 12 hours PRN (Reason: pain) Qty: 30 0RF Rx Instructions: leave on most painful area for up to 12 hrs naproxen 500 mg tablet 500 mg PO BID PRN (Reason: pain) 10 Days Qty: 20 0RF cyclobenzaprine 5 mg tablet 5 mg PO Q8H PRN (Reason: pain (scale score 7-10)) 5 Days Qty: 14 0RF cephalexin 500 mg capsule 500 mg PO TID Qty: 30 0RF meloxicam 15 mg tablet 15 mg PO DAILY Qty: 14 0RF Print Language: [place]ican
[2024-02-08 07:21] VITALS: BP 124/79; PULSE 81; RESP 18; TEMP 37.2; O2SAT 97
== END 2024-02-08 07:22 | disposition home or self-care (01) ==
PROVIDERS: Emergency Provider Emergency Medicine; PCP Internal Medicine
DX: S30.0XXA Contusion of lower back and pelvis, initial encounter (principal); W10.9XXA Fall (on) (from) unspecified stairs and steps, initial encounter; Y93.9 Activity, unspecified; Y92.009 Unspecified place in unspecified non-institutional (private) residence as the place of occurrence of the external cause; Y99.9 Unspecified external cause status
CPT/HCPCS: 72170; 99283; 99284

== ENCOUNTER 2024-10-20 15:36 | Emergency (ER) | payer MEDICAID, SELFPAY ==
--- NOTE | ~2024-10-20 | XR_ITS ---
EXAMINATION: XR HAND, RIGHT CLINICAL INFORMATION: pain, injury COMPARISON: None available. TECHNIQUE: PA, lateral, and oblique views of the right hand. FINDINGS: Spiral fracture of the fourth metacarpal, essentially nondisplaced. No angulation or override. No definite intra-articular involvement identified. No additional fracture or malalignment. Joint spaces appear normal. Carpal bones intact, and normally aligned. Mild dorsal soft tissue swelling. XR/XR hand RT min 3V IMPRESSION: 1. Nondisplaced spiral fracture of the proximal diaphysis fourth metacarpal. 2. Dorsal soft tissue swelling. Electronically signed by: Berry Cast MD 10/20/2024 04:57 PM [facility]
[2024-10-20 15:45] VITALS: BP 139/86; PULSE 101; RESP 16; TEMP 36.4; O2SAT 96; BMI 25.1
--- NOTE | 2024-10-20 15:54 | ED.EXTPRO ---
HPI - Extremity Problem General Chief complaint: Extremity Injury, Upper Stated complaint: R hand injury Time Seen by Provider: 10/20/24 18:14 Source: patient Mode of arrival: ambulatory Limitations: no limitations History of Present Illness ED Provider: Heather Raman NP HPI Narrative: Patient is a 54-year-old male who presents emergency department for evaluation. Reports that while at work today he was using a hammer drill when suddenly moved in a wrong way resulting in a pulling action and twisting of the right hand. He is right-hand dominant. He reports significant pain particularly to the base of the 4th and 5th digit. He believes he may have fractured the hand. He denies any history of prior fracture here. He denies any numbness or tingling or cold sensation to the hand. Related Data Previous Rx's ?Medication ?Instructions ?Recorded cephalexin 500 mg capsule 500 mg PO TID #30 caps 01/30/22 meloxicam 15 mg tablet 15 mg PO DAILY #14 tabs 01/30/22 amoxicillin 875 mg-potassium 1 tab PO Q12H 5 days #10 tabs 06/05/22 clavulanate 125 mg tablet acetaminophen 500 mg tablet 500 mg PO Q6H PRN fever or pain 12/24/22 (Tylenol Extra Strength) #14 tabs cyclobenzaprine 5 mg tablet 5 mg PO Q8H PRN pain (scale score 12/24/22 7-10) 5 days #14 tabs lidocaine 5 % topical patch 1 patch topical DAILY PRN pain #30 12/24/22 (Lidoderm) ea naproxen 500 mg tablet 500 mg PO BID PRN pain 10 days #20 12/24/22 tabs lidocaine 5 % topical patch 1 patch topical DAILY #15 ea 02/08/24 naproxen 500 mg tablet 500 mg PO BID PRN pain #20 tabs 02/08/24 oxycodone 5 mg tablet 5 mg PO Q6H PRN pain #10 tabs 10/20/24 Allergies Allergy/AdvReac Type Severity Reaction Status Date / Time No Known Allergies Allergy Verified 10/20/24 15:48 Review of Systems Review of Systems: Yes all other systems are reviewed and are negative PMF[facility] Past Medical History Attestation statement: The following information was validated with the patient. 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 No acute distress.?Normal affect. CVS: Heart sounds normal. Normal heart rate and rhythm.? Pulses normal.?? Respiratory: No respiratory distress.? Lung sounds clear to auscultation bilaterally?? Skin: Skin warm and dry.? Normal skin color.? Extremities: No extremity edema or obvious deformity to the right hand. 2+ radial pulse. Tenderness upon palpation over the 4th and 5th metacarpal. Neuro: Moves all extremities spontaneously. Sensation intact bilaterally. Ambulates with normal steady gait. Course Course Course Narrative: RME performed by Melinda Price PA-C. Patient is a 54 year old assigned male at presenting to the emergency department with right hand pain. Detailed physical exam and review of systems are deferred to the primary health organisation manager. Imaging ordered. Patient placed back in the waiting room pending room availability and results. Medical Decision Making Medical Decision Making MDM Narrative: Patient is a 54-year-old male presents emergency department for evaluation of right hand pain after use the hammertoe earlier today as per HPI. No obvious deformity or significant swelling. No open wounds or lesions. XR imaging was obtained to evaluate for fracture/dislocation versus sprain. Appears to have a spiral fracture of the 4th metacarpal. Placed in an ulnar gutter splint without complication, remained neurovascularly intact distally after application. Discussed conservative treatment, acetaminophen/ibuprofen, rest, ice, elevation. Outpatient follow-up with orthopedics. For pain unrelieved by the conservative measures a short prescription for oxycodone has been sent to the pharmacy. Advised of strict return precautions all questions answered. Stable for discharge Differential Diagnosis Differential Diagnoses: The differential diagnosis associated with the presentation includes (See narrative above) Independent Interpretation I performed an independent interpretation of an: Plain X-Ray (4th metacarpal fracture) Radiology Impression Discussion of test interpretation with radiology: I have reviewed the radiologist's reading. Radiologist Impression: XR/XR hand RT min 3V IMPRESSION: 1. Nondisplaced spiral fracture of the proximal diaphysis fourth metacarpal. 2. Dorsal soft tissue swelling. External Record Review External record reviewed: Outpatient record Prescription Management I considered prescription management with: Pain Medication (See narrative above) Procedures Orthopedic Splinting/Casting Injury #1: Side: right Upper Extremity Injury Location: hand Upper Extremity Immobilizer: ulnar gutter Discharge Plan Discharge Clinical Impression: Fracture of metacarpal Qualifiers: Encounter type: initial encounter Metacarpal bone: fourth Fracture type: closed Metacarpal location: shaft Laterality: right Patient Disposition: Home, Self-Care Instructions: Hand Fracture (ED) Additional Instructions: Be sure to rest over the next few days. Apply ice to the area for 10-15 minutes 3-4 times daily. The splint that was placed must remain in place at all times. It can not get wet. You will need to follow up outpatient with Orthopedics, please contact their office first thing Wednesday to arrange for follow-up. You can take ibuprofen 200 mg, 3 tablets (600mg) every 6-8 hours as needed for pain, in addition to Tylenol 500 mg, 2 tablets (1,000mg) every 4-6 hours as needed for pain, but not to exceed 3 doses daily (3,000mg).? For pain that is unrelieved by the of the above I have sent a short prescription for oxycodone to your pharmacy. This is a narcotic medication. It may make you drowsy. You should not drive, drink alcohol, or work while taking this medication. Prescriptions: New oxycodone 5 mg tablet 5 mg PO Q6H PRN (Reason: pain) Qty: 10 0RF Rx Instructions: Partial Fill upon patient request. No Action amoxicillin-pot clavulanate 875-125 mg tablet 1 tab PO Q12H 5 Days Qty: 10 0RF Rx Instructions: Take first dose this morning. acetaminophen [Tylenol Extra Strength] 500 mg tablet 500 mg PO Q6H PRN (Reason: fever or pain) Qty: 14 0RF lidocaine [Lidoderm] 5 % adhesive patch,medicated 1 patch topical DAILY MDD remove after 12 hours PRN (Reason: pain) Qty: 30 0RF Rx Instructions: leave on most painful area for up to 12 hrs naproxen 500 mg tablet 500 mg PO BID PRN (Reason: pain) 10 Days Qty: 20 0RF cyclobenzaprine 5 mg tablet 5 mg PO Q8H PRN (Reason: pain (scale score 7-10)) 5 Days Qty: 14 0RF lidocaine 5 % adhesive patch,medicated 1 patch topical DAILY Qty: 15 0RF Rx Instructions: leave on most painful area for up to 12 hrs naproxen 500 mg tablet 500 mg PO BID PRN (Reason: pain) Qty: 20 0RF cephalexin 500 mg capsule 500 mg PO TID Qty: 30 0RF meloxicam 15 mg tablet 15 mg PO DAILY Qty: 14 0RF Referrals: [facility] [place] [facility] [Provider Group] (4th metacarpal fracture) Ramon Chow DO [Primary Care Provider] - Print Language: Polish
[2024-10-20 18:19] VITALS: BP 126/92; PULSE 99; RESP 12; TEMP 36.7; O2SAT 97
[2024-10-20 19:02] VITALS: BP 126/92; PULSE 99; RESP 12; TEMP 36.7; O2SAT 97
== END 2024-10-20 19:02 | disposition home or self-care (01) ==
PROVIDERS: Emergency Provider Emergency Medicine; PCP Internal Medicine
DX: S62.324A Displaced fracture of shaft of fourth metacarpal bone, right hand, initial encounter for closed fracture (principal); M79.641 Pain in right hand; Y29.XXXA Contact with blunt object, undetermined intent, initial encounter; Y93.89 Activity, other specified; Y92.89 Other specified places as the place of occurrence of the external cause; Y99.0 Civilian activity done for income or pay; Z79.899 Other long term (current) drug therapy; F17.210 Nicotine dependence, cigarettes, uncomplicated
CPT/HCPCS: 29130; 73130; 99283; 99284

== ENCOUNTER → 2024-10-20 15:55 | Outpatient (BNV) | payer MEDICAID, SELFPAY | PROVIDERS: PCP Internal Medicine; Visit Provider Radiology Diagnostic Radiology | DX: M79.642 Pain in left hand (principal) | CPT/HCPCS: 73130 ==

== ENCOUNTER 2024-10-26 12:40 | Outpatient (REF) | payer MEDICAID, SELFPAY ==
--- NOTE | ~2024-10-26 | XR_ITS ---
EXAMINATION: XR HAND 3 OR MORE VIEWS RIGHT HISTORY: M79.641 - Pain in right hand COMPARISON: Comparison is made with the prior examination dated 10/20/2024. FINDINGS: Three views of the right hand are submitted. Osseous mineralization is normal. Again seen is a minimally displaced oblique fracture of the 4th metacarpal. The appearance is not significantly changed from the prior study. The joint spaces are preserved. The soft tissues are unremarkable. XR/XR hand RT min 3V IMPRESSION: Minimally displaced oblique fracture of the 4th metacarpal without change. Electronically signed by: Ramon Batres MD 11/03/2024 10:08 AM [facility]
== END 2024-10-26 12:41 | disposition home or self-care (01) ==
LOC: HO.HOSX 12:40
DX: M79.641 Pain in right hand (principal); S62.324A Displaced fracture of shaft of fourth metacarpal bone, right hand, initial encounter for closed fracture
CPT/HCPCS: 73130; 99212

== ENCOUNTER 2024-10-26 13:47 | Outpatient (AMB) | payer MEDICAID, SELFPAY ==
--- NOTE | 2024-10-26 14:00 | A.OFFVIS_ITS ---
Vital Signs 10/26/24 14:02 Height 5 ft 10 in Weight 170 lb BMI 24.4 Handedness Right Intake Visit Reasons: FC- fc of the 4th metacarpal right, DOI 10/20/24 Intake Note: Corwin is a 54 year old 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 male who presents today as a new patient for a fracture care visit of his right 4th metacarpal, DOI: 10/20/24. Patient reports at work he was using a hammer drill when it suddenly moved a wrong way resulting in a pulling action and twisting of the right hand. Patient reports he is still having pain, numbness and tingling. He states the entire right hand and digits get numbness and tingling that is constant but thinks it may be the swelling. Difficulty lifting, making full closed fist, and using hand due to injury. Allergies No Known Allergies Allergy (Verified 10/26/24 14:02) HPI HPI FC- fc of the 4th metacarpal right, DOI 10/20/24: Details: Patient is a 54-year-old male who presents for fracture care visit for fracture of the right 4th metacarpal, date of injury 10/20/2024. On that date, the patient reports that he was using a rotating hammer, and his right hand got caught in the mechanism, and he immediately began to experience significant pain and swelling over the right 4th metacarpal. Patient reports that today, he is still experiencing pain in the right hand, but it has improved since date of injury. Of note, the patient reports that he has ?cheated? and has done more than was recommended when he was evaluated in the emergency department. Patient expresses he would like to have surgical intervention if possible, as he is concerned about rotational deformities and would like to ensure as close to anatomical alignment of his fracture as possible. Reports numbness and tingling in the right hand, but states he feels this is due to swelling and is resolving. No other acute complaints or concerns at this time. 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 Neuro: Normal sensation of the tips of all digits of the right hand at this time Vascular: Cap refill brisk Pain: Patient reports tenderness to palpation at the level of the fracture in the right 4th metacarpal Patient also reports some discomfort with range of motion of the right hand ROM: Patient is able to make a closed fist and extend all digits of the right hand Skin: No lacerations or abrasions. General: There is edema noted of the dorsal right hand No ecchymosis, erythema, or evidence of infection. Psych: Appears grossly normal Affect normal Attitude cooperative Results Reviewed Results Reviewed: X-rays obtained in the office today and independently reviewed by me, Brandon Perry PA-C, demonstrate minimally displaced fracture of the right 4th metacarpal shaft. Assessment & Plan Assessment & Plan (1) Fracture of shaft of fourth metacarpal bone of right hand: Code(s): S62.324A - Displaced fracture of shaft of fourth metacarpal bone, right hand, initial encounter for closed fracture Category: Medical Plan 1. Right 4th metacarpal shaft fracture Date of injury 10/20/2024 I educated the patient about the condition. I discussed both operative and nonoperative treatment options. The patient would like to proceed with surgery. The risks and benefits of operative treatment were discussed with the patient and the patient wishes to proceed with surgery. These risks include, but are not limited to, risk of damage to blood vessels, nerves, tendons, infection, recurrence, incomplete relief of preoperative symptoms, persistent pain, possible need for further surgery, and the risks associated with regional blocks and/or anesthesia. Plan is to take the patient to the operating room at some point in the next few weeks for the following procedures: 1. Right 4th metacarpal CRPP versus ORIF under general anesthesia All of the preoperative paperwork including the consent was discussed today. All of the patient's questions were answered in the clinic today. The patient understands that they will be in contact with our surgical first assistant to discuss scheduling their procedure. Patient denies diabetes, blood thinners, asthma, heart issues, lung issues, kidney issues, or current smoking. Patient is educated that he will follow up with Dr. Ritchie on 10/31/2023 for preoperative evaluation and final determination if he can be treated conservatively or will require surgery. Orders: Orders XR hand RT min 3V Today M79.641 - Pain in right hand Coding Level of Care Code New Pt Level 4 (92381) Diagnoses Fracture of shaft of fourth metacarpal bone of right hand S62.324A
[2024-10-26 14:02] VITALS: BMI 24.4
== END 2024-10-26 14:57 | disposition home or self-care (01) ==
PROVIDERS: PCP Internal Medicine
DX: S62.324A Displaced fracture of shaft of fourth metacarpal bone, right hand, initial encounter for closed fracture (principal)
CPT/HCPCS: 99204

== ENCOUNTER 2024-10-31 14:29 | Outpatient (AMB) | payer MEDICAID, SELFPAY ==
--- NOTE | 2024-10-31 14:37 | A.OFFVIS_ITS ---
Vital Signs 10/31/24 14:42 Height 5 ft 10 in Weight 170 lb BMI 24.4 Intake Visit Reasons: Pre-op- f/x of the 4th metacarpal RT, DOI 10/20/24 Intake Note: Corwin is a 54 year old 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 male who presents today for a pre operative visit for his 4th right metacarpal fracture, DOI: 10/20/2024. Patient reports about 2 days ago his fingers were caught and tugged. stating in between his 4th and 5th digit. This has caused an increase of pain. Allergies No Known Allergies Allergy (Verified 11/03/24 01:56) HPI HPI Pre-op- f/x of the 4th metacarpal RT, DOI 10/20/24: Details: Corwin is a 54 year old 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 male who presents today for a pre operative visit for his 4th right metacarpal fracture, DOI: 10/20/2024. Patient reports about 2 days ago his fingers were caught and tugged. stating in between his 4th and 5th digit. This has caused an increase of pain. REPLACED BY [facility] Medical History (Updated 11/04/24 @ 19:28 by Carlos Pan MD) Alcohol use disorder MDD (major depressive disorder), recurrent severe, without psychosis No known health problems Social History Household Members: None Housing: Homeless Do you presently have visiting nurse or other home services: No Alcohol intake: current Alcohol intake frequency: holidays/special occasions only Alcohol type: beer Patient Tobacco Use Status: Current everyday Tobacco user Tobacco use type: Cigarette Cigarette Packs Per Day: 1 Cigarettes Per Day: 20.0 Smoked in Last 30 Days: Yes Patient Interested in Nicotine Replacement: Yes Patient Given Instructions on How to Stop Smoking: Yes Date Education Initiated: 11/03/24 Second Hand Smoke Exposure: No Use of substances other than those prescribed or required for medical reasons: Yes Substance Use Type: Marijuana Substance Use Frequency: Daily Last Used Substance: Just Prior to Admission Currently Displaying Signs/Symptoms of Drug Intoxication Withdrawal: No Any prior treatment program specific to substance use: No Have you been hit, kicked, punched, or otherwise hurt by someone within the past year? 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 Neuro: Normal sensation of the tips of all digits of the right hand at this time Vascular: Cap refill brisk Pain: Patient reports tenderness to palpation at the level of the fracture in the right 4th metacarpal Patient also reports some discomfort with range of motion of the right hand ROM: Patient is able to make a closed fist and extend all digits of the right hand Skin: No lacerations or abrasions. General: There is edema noted of the dorsal right hand No ecchymosis, erythema, or evidence of infection. Psych: Appears grossly normal Affect normal Attitude cooperative Office Procedures AMB Fracture Care Fracture Billing Code: Fracture Billing Code Casting/Splints 74614-Frdo/Wrist Cast Application Procedure code (CPT) selection complete Results Reviewed Results Reviewed: X-rays obtained in the office today and independently reviewed by me, Brandon Perry PA-C, demonstrate minimally displaced fracture of the right 4th metacarpal shaft. Assessment & Plan Assessment & Plan (1) Fracture of shaft of fourth metacarpal bone of right hand: Code(s): S62.324A - Displaced fracture of shaft of fourth metacarpal bone, right hand, initial encounter for closed fracture Category: Medical Plan 1. Right 4th metacarpal shaft fracture Date of injury 10/20/2024 I educated the patient about the condition. I discussed both operative and nonoperative treatment options. Patient is seen and evaluated with Dr. Ritchie, and a collaborative treatment plan was formed With no further displacement of the fracture, after discussion with Dr. Ritchie, patient is amenable to nonoperative management of his fracture Patient was placed into a short-arm ulnar gutter cast Patient is educated on proper cast care and precautions Patient will follow-up in 3-4 weeks with repeat x-rays for reassessment, sooner with any acute concerns Orders: Orders XR hand RT min 3V 10/31/24 M79.641 - Pain in right hand Coding Level of Care Code Est Pt Level 3 (65872) Diagnoses Fracture of shaft of fourth metacarpal bone of right hand S62.324A CPT Codes Fracture Care - Fracture Billing Code: Fracture Billing Code ([id number]) Casting - CPT: 04740-Iolk/Wrist Cast Application ([id number])
[2024-10-31 14:42] VITALS: BMI 24.4
== END 2024-10-31 16:10 | disposition home or self-care (01) ==
PROVIDERS: PCP Internal Medicine
DX: S62.324A Displaced fracture of shaft of fourth metacarpal bone, right hand, initial encounter for closed fracture (principal)
CPT/HCPCS: 26600; 99213

== ENCOUNTER 2024-10-31 14:29 | Outpatient (REF) | payer MEDICAID, SELFPAY ==
--- NOTE | ~2024-10-31 | XR_ITS ---
EXAMINATION: XR HAND 3 OR MORE VIEWS RIGHT HISTORY: M79.641 - Pain in right hand COMPARISON: Comparison is made with the prior examination dated 10/26/2024. FINDINGS: Three views of the right hand are submitted. Osseous mineralization is normal. Again seen is an oblique fracture of the 4th metacarpal which is mildly displaced. The fracture line remains visible. The joint spaces are preserved. The soft tissues are unremarkable. XR/XR hand RT min 3V IMPRESSION: Mild displaced oblique fracture of the 4th metacarpal without change. Electronically signed by: Ramon Batres MD 11/03/2024 08:51 AM EST
== END 2024-10-31 14:30 | disposition home or self-care (01) ==
LOC: HO.HOSX 14:29
PROVIDERS: PCP Internal Medicine
DX: Z01.818 Encounter for other preprocedural examination (principal); M79.641 Pain in right hand; S62.324D Displaced fracture of shaft of fourth metacarpal bone, right hand, subsequent encounter for fracture with routine healing
CPT/HCPCS: 26600; 73130; 99212

== ENCOUNTER 2024-11-03 01:55 | Inpatient (IN) | payer OTHER, SELFPAY ==
--- NOTE | 2024-11-03 | ECG_ITS ---
Test Reason : check prolonged qtc Blood Pressure : */* mmHG Vent. Rate : 78 BPM Atrial Rate : 78 BPM P-R Int : 142 ms QRS Dur : 92 ms QT Int : 380 ms P-R-T Axes : 71 -63 65 degrees QTcB Int : 433 ms Normal sinus rhythm Left axis deviation Incomplete right bundle branch block Abnormal ECG No previous ECGs available Referred By: Vivian Sanford Electronically Signed By: TRAM BRADLEY
[2024-11-03 01:56] VITALS: BP 132/78; PULSE 116; RESP 20; TEMP 36.6; O2SAT 97; BMI 25.1
[2024-11-03 02:15] LABS: MANUAL DIFF FLAG NO
[2024-11-03 02:22] LABS: Basophils Absolute Auto 0.1 X10*3/uL (0.0-0.2); Basophils Percent Auto 0.7 % (0-2); Eosinophils Absolute Auto 0.6 X10*3/uL (0.0-0.4); Eosinophils Percent Auto 4.8 % (0-4); Hematocrit 46.1 % (42.0-52.0); Hemoglobin 16.3 g/dl (14.0-18.0); Imm Gran Abs Auto 0.05 X10*3/uL (0.00-0.03); Imm Gran Pct Auto 0.4 % (0.0-0.4); Lymphocytes Absolute Auto 2.1 X10*3/uL (1.2-4.9); Lymphocytes Percent Auto 15.8 % (20-40); Mean Corpuscular HGB Conc 35.4 g/dl (31.0-36.0); Mean Corpuscular Hemoglobin 35.2 pg (27.0-33.0); Mean Corpuscular Volume 99.6 fL (80.0-98.0); Mean Platelet Volume 9.2 fL (9.4-12.4); Monocytes Absolute Auto 0.8 X10*3/uL (0.1-1.2); Monocytes Percent Auto 6.2 % (2-11); Neutrophils Absolute Auto 9.7 x10*3/uL (2.0-8.3); Neutrophils Percent Auto 72.1 % (45-73); Platelet Count 291 X10*3/uL (160-400); Red Blood Count 4.63 X10*6/uL (4.60-5.80); Red Cell Distribution Width 13.2 % (11.0-16.0); White Blood Count 13.5 X10*3/uL (4.8-10.8)
[2024-11-03 02:38] LABS: Appearance Urine Clear; Color Urine Yellow; Glucose Urine UA Negative (Negative); Leukocyte Esterase Urine Negative (Negative); Nitrite Urine Negative (Negative); PH 5.5 (5.0-9.0); Specific Gravity - Urine <= 1.005 (1.005-1.025); Urine Blood Negative (Negative); Urine Ketones Negative (Negative); Urine Protein Negative (Neg-Trace)
--- NOTE | 2024-11-03 02:41 | PC.NURSE ---
patient had hand brace which i had him remove, had asked him if he needed it, will examine in the near future if item can be made safe on the unit,
[2024-11-03 02:45] LABS: Alanine Aminotransferase 35 U/L (0-40); Albumin Level 4.4 g/dL (3.5-5.0); Alkaline Phosphatase 70 U/L (39-117); Anion Gap 15 (12-20); Aspartate Amino Transferase 33 U/L (5-37); Bilirubin Total 0.4 mg/dL (0.0-1.0); Blood Urea Nitrogen 10 mg/dL (9-16); Calcium 9.3 mg/dL (8.4-10.2); Carbon Dioxide 21 mmol/L (22-29); Chloride 108 mmol/L (96-108); Creatinine Clr Calc Pharmacy 108.1; Estimated Glomerular Filt Rate > 60; Ethanol 152 mg/dL; Glucose Random 80 mg/dL (60-115); Lipase 34 U/L (8-78); Potassium 4.3 mmol/L (3.3-5.1); Sodium 140 mmol/L (135-145); Total Protein 7.4 g/dL (6.5-8.0)
[2024-11-03 02:46] LABS: Amphetamine Screen Urine Not Detected (Not Detect); Barbiturates, Urine Not Detected (Not Detect); Benzodiazepines Screen Urine Not Detected (Not Detect); Buprenorphine Scr Not Detected (Not Detect); Cannabinoid Screen Urine POSITIVE (Not Detect); Cocaine Screen Urine Not Detected (Not Detect); Fentanyl, urine Not Detected (Not Detect); Methadone Screen, Urine Not Detected (Not Detect); Opiate Screen Urine Not Detected (Not Detect); Oxycodone Screen Urine Not Detected (Not Detect); Phencyclidine Screen Urine Not Detected (Not Detect)
--- NOTE | 2024-11-03 02:51 | PC.NURSE ---
no evidence of onjury (excepting recent metacarpal fx) or contraband on client when search was conducted
--- NOTE | 2024-11-03 03:16 | ED.PSYCH ---
HPI - Psych General Chief Complaint: Psychiatric Symptoms Stated Complaint: crisis Time Seen by Provider: 11/03/24 03:10 Source: patient Mode of arrival: ambulatory Limitations: no limitations History of Present Illness ED Provider: Dr. Vivian Sanford HPI Narrative: Patient comes to the emergency room complaining of anxiety, depression, alcohol abuse, patient complaining of suicidal ideation. Patient states that he was considering hanging himself. Patient homeless, his several years ago. Never been medicated for anxiety or depression. Patient states that he can not do it anymore, wants help Related Data Allergies Allergy/AdvReac Type Severity Reaction Status Date / Time No Known Allergies Allergy Verified 11/03/24 01:56 Review of Systems Review of Systems: Constitutional : No Weight loss, No Fever, No Chills, No Night Sweats, No Fatigue, No Malaise ENT/Mouth : No Hearing loss, No Ear Pain, No Nasal Congestion, No Sinus Pain, No Hoarseness, No sore throat, No Rhinorrhea, No Swallowing Difficulty Eyes: No Eye Pain, No Swelling, No Redness, No Foreign Body, No Discharge, No Vision Changes Cardiovascular : No Chest Pain, No SOB, No Dyspnea on Exertion, No Orthopnea, No Edema, No Palpitations Respiratory : No Cough, No Sputum, No Wheezing, No Smoke Exposure, No Dyspnea Gastrointestinal : No Nausea, No Vomiting, No Diarrhea, No Constipation, No abdominal Pain, No Hematochezia, No Melena Genitourinary : no irregular bleeding, No Dysuria, No Urinary Frequency, No Hematuria, No Urinary Incontinence, No Urgency, No Flank Pain, No Urinary Flow Changes, No Hesitancy Musculoskeletal : No joint pain, No Myalgias, No Joint Swelling Skin : No Skin Lesions, No rash Neuro : No Weakness, No Numbness, No Paresthesias, No Loss of Consciousness, No Dizziness, No Headache Psych : complaining of anxiety, depression, suicidal ideation, no HI, patient homeless Heme/Lymph: No Bruising, No Bleeding,No Lymphadenopathy Endocrine : No Polyuria, No Polydipsia, No Temperature Intolerance PMF Past Medical History Medical History No known health problems Social History Social History Alcohol intake: current Alcohol intake frequency: holidays/special occasions only Alcohol type: beer Patient Tobacco Use Status: Current everyday Tobacco user Substance Use Type: Marijuana Advance Directives: No Do you have a plan to hurt others: No Plan Current occupational status: employed 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 Oriented X3. No acute distress. Eyes: Pupils equal, round and reactive to light. ENT: Pharynx normal. Neck: Normal inspection. Neck supple. No lymph nodes noted. No crepitus CVS: Normal heart rate and rhythm. Pulses normal. Normal S1 and S2 Respiratory: No respiratory distress. Breath sounds normal. No Wheezing. No rales Abdomen: Soft and nontender. No rigidity. No distention. Skin: Skin warm and dry. Normal skin color. Normal skin turgor. Extremities: No lower extremity edema. No Lacerations. No Rash Neuro: Oriented X 3. No motor deficit. No sensory deficit. Moving all extremities. No slurred speech. CN 2 through 12 grossly intact Psych: calm, cooperative, normal affect Medical Decision Making Medical Decision Making MDM Narrative: my interpretation of labs: No obvious abnormality in patient's hematology chemistry, toxicology positive for marijuana, alcohol 152 care team consult pending physician observation started at 03:20 Differential Diagnosis Differential Diagnoses: The differential diagnosis associated with the presentation includes ( anxiety, depression, suicidal ideation) Lab Data 11/03/24 02:07 11/03/24 02:07 Labs: Lab Results 11/03/24 11/03/24 Range/Units 02:07 02:25 WBC 13.5 H (4.8-10.8) X10*3/uL RBC 4.63 (4.60-5.80) X10*6/uL Hgb 16.3 (14.0-18.0) g/dl Hct 46.1 (42.0-52.0) % MCV 99.6 H (80.0-98.0) fL MCH 35.2 H (27.0-33.0) pg MCHC 35.4 (31.0-36.0) g/dl RDW 13.2 (11.0-16.0) % Plt Count 291 (160-400) X10*3/uL MPV 9.2 L (9.4-12.4) fL Immature Gran % (Auto) 0.4 (0.0-0.4) % Neut % (Auto) 72.1 (45-73) % Lymph % (Auto) 15.8 L (20-40) % [place] % (Auto) 6.2 (2-11) % Eos % (Auto) 4.8 H (0-4) % Baso % (Auto) 0.7 (0-2) % Lymph # (Auto) 2.1 (1.2-4.9) X10*3/uL [place] # (Auto) 0.8 (0.1-1.2) X10*3/uL Eos # (Auto) 0.6 H (0.0-0.4) X10*3/uL Baso # (Auto) 0.1 (0.0-0.2) X10*3/uL Abs Immat Gran (auto) 0.05 H (0.00-0.03) X10*3/uL Absolute Neuts (auto) 9.7 H (2.0-8.3) x10*3/uL Absolute Nucleated RBC 0.000 (0.0-0.012) X10*3/uL Nucleated RBC % (auto) 0.0 (0.0-0.2) /100WBC Sodium 140 (135-145) mmol/L Potassium 4.3 (3.3-5.1) mmol/L Chloride 108 (96-108) mmol/L Carbon Dioxide 21 L (22-29) mmol/L Anion Gap 15 (12-20) BUN 10 (9-16) mg/dL Creatinine 0.79 (0.5-1.4) mg/dL Estim Creat Clear Calc 108.1 Estimated GFR > 60 Random Glucose 80 (60-115) mg/dL Calcium 9.3 (8.4-10.2) mg/dL Total Bilirubin 0.4 (0.0-1.0) mg/dL AST 33 (5-37) U/L ALT 35 (0-40) U/L Alkaline Phosphatase 70 (39-117) U/L Total Protein 7.4 (6.5-8.0) g/dL Albumin 4.4 (3.5-5.0) g/dL Lipase 34 (8-78) U/L Hold Yellow Top See Note Urine Color Yellow Urine Appearance Clear Urine pH 5.5 (5.0-9.0) Ur Specific [place] <= 1.005 (1.005-1.025) Urine Protein Negative (Neg-Trace) mg/dL Urine Glucose (UA) Negative (Negative) mg/dL Urine Ketones Negative (Negative) mg/dL Urine Blood Negative (Negative) Urine Nitrite Negative (Negative) Ur Leukocyte Esterase Negative (Negative) Urine Opiates Screen Not Detected (Not Detect) Ur Buprenorphine Scrn Not Detected (Not Detect) ng/mL Ur Oxycodone Screen Not Detected (Not Detect) ng/mL Urine Methadone Screen Not Detected (Not Detect) ng/mL Urine Fentanyl Screen Not Detected (Not Detect) Ur Barbiturates Screen Not Detected (Not Detect) Ur Phencyclidine Scrn Not Detected (Not Detect) Ur Amphetamines Screen Not Detected (Not Detect) U Benzodiazepines Scrn Not Detected (Not Detect) Urine Cocaine Screen Not Detected (Not Detect) U Marijuana (THC) Screen POSITIVE H (Not Detect) Ethyl Alcohol 152 mg/dL Critical Care Time Critical Care Time Critical Care Time: Yes Total Critical Care Time: 35 Attestation: I have personally provided critical care time. Time includes review of lab data, radiology results, discussion with consultants, and monitoring for potential decompensation. Intervention performed as documented. Discharge Plan Discharge Clinical Impression: Depression with suicidal ideation Patient Disposition: Still a Patient Interventions: Swain-Suicide Risk Severity Scale Last Done: 11/03/24 02:26 Print Language: Greenlandic
[2024-11-03 07:37] VITALS: RESP 16
--- NOTE | 2024-11-03 07:38 | PC.NURSE ---
Assumed care of patient at 0645, patient appears to be sleeping, respirations even and unlabored, no apparent distress noted. Continue plan of care for CARE team eval this am
--- NOTE | 2024-11-03 13:30 | PHA.MEDREC ---
Pharmacy Consult ? Medication Reconciliation Pharmacy has REVIEWED the medication reconciliation COMPLETED by nursing.
[2024-11-03 18:20] VITALS: BP 131/90; PULSE 79; RESP 14; TEMP 36.6; O2SAT 97
[2024-11-03 18:35] VITALS: BMI 23.3
--- NOTE | 2024-11-03 19:23 | PC.ADMIT ---
Corwin is a 54 y/o male that was admitted to at 1806 from the Pod on CV for treatment of ETOH use d/o and unspecified depressive d/o. Pt is currently homeless.? Pt has a recent stressor of passing away from cancer. Pt has become increasingly depressed, recent increase in etoh use and increased SI with plan to hang self.? A&O x4. Calm, pleasant and cooperative. Mood is depressed, affect congruent with mood. .? Denied AVH. No hx of SI attempts or any IPLOC.? Thought process was linear and organized.? Pt denied SI or HI at this time stated? ?I am not a danger while I am here I am safe don?t worry?.? Pt reported poor sleep.? Recent weight loss of 12 lbs.? Pt currently smokes 1 pack of cigarettes a day. Pt declined the flu shot.? Tox Screen positive for THC. BAL was 152. Pt placed on a CIWA Q4. Last drank 1 day prior to admission, ? pint eve and ?some? beers. No past EMMA tx.? Pt has a fractor on R hand r/t rotary hammer accident. Pt has a brace.? Pt placed on 15 min checks for safety.? No current medications.? Pt compliant with skin check, under left shoulder blade small cyst like bump.
[2024-11-03 20:00] VITALS: BP 127/85; PULSE 72; RESP 16; TEMP 37; O2SAT 95
[2024-11-03 20:46] LABS: Alanine Aminotransferase 32 U/L (0-40); Albumin Level 4.3 g/dL (3.5-5.0); Alkaline Phosphatase 72 U/L (39-117); Anion Gap 11 (12-20); Aspartate Amino Transferase 34 U/L (5-37); Bilirubin Total 1.2 mg/dL (0.0-1.0); Blood Urea Nitrogen 13 mg/dL (9-16); Calcium 9.2 mg/dL (8.4-10.2); Carbon Dioxide 23 mmol/L (22-29); Chloride 108 mmol/L (96-108); Creatinine Clr Calc Pharmacy 91.8; Estimated Glomerular Filt Rate > 60; Glucose Random 84 mg/dL (60-115); Potassium 4.5 mmol/L (3.3-5.1); Sodium 137 mmol/L (135-145); Total Protein 7.3 g/dL (6.5-8.0)
[2024-11-04 07:34] VITALS: BP 132/86; PULSE 73; RESP 16; TEMP 37.1; O2SAT 96
[2024-11-04] MEDS: Thiamine HCL 100 MG TABLET PO (09:03)
[2024-11-04] MEDS: Nicotine 21 MG PATCH.TD24 TRANSDERMA (09:04)
[2024-11-04 09:08] LABS: Cholesterol 231 mg/dL (<200); HDL Cholesterol 61 mg/dL (>40); LDL Cholesterol Calculated 141 mg/dL (<100); Triglycerides 145 mg/dL (<150)
--- NOTE | 2024-11-04 11:24 | HO.PSYADMNOT ---
HPI Date of Service: 11/04/24 Chief Complaint: Crisis Sources of Information: patient interviewed, chart reviewed and crisis/core team assessment reviewed HPI Subjective Notes: Coronel Warning and Conditional Voluntary Narrative: Patient is a 54-year-old male with history of depression, alcoholism who presents for worsening depression with SI to hang himself in the face of medical illness, out of work and homeless. Patient reports that his depression and drinking started 8 years ago when his beloved . He has never tried psychiatric medications. 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 Patient has been unable to work; he has been homeless and this past week, his hopelessness increased to the point where he started planning to hang himself. Instead he self presented. Denies any drug use other than alcohol; patient drinks 1 pt and several beers a day. Denies AVH; denies any history of manic type episodes. seen at 12:15am Past Psychiatric History: No past psychiatric admissions No past psychiatric medication trials Medical Evaluation Reviewed: Hospitalist Lilibethal Pending [facility] Medical History (Updated 11/04/24 @ 19:28 by Carlos Pan MD) Alcohol use disorder MDD (major depressive disorder), recurrent severe, without psychosis No known health problems Family History: Denies Social History: 8 years ago Patient says he is not close to any of his family Substance History: Alcoholism for the past 8 years; patient says currently he has been drinking a pt plus several beers a day Trauma History: Deferred Diagnostics Vital Signs (24Hr): Vital Signs - 24 hr 11/03/24 18:20 11/03/24 20:00 11/04/24 07:34 Temperature 98 F 98.6 F 98.8 F Pulse Rate 79 72 73 Respiratory Rate 14 16 16 Blood Pressure 131/90 H 127/85 132/86 Pulse Oximetry 97 95 96 Oxygen Delivery Method Room Air Room Air Room Air BMI result Body Mass Index 23.3 Labs 11/03/24 02:07 11/03/24 20:10 Labs: Laboratory Results - last 48 hr 11/03/24 11/03/24 11/03/24 02:07 02:25 20:10 WBC 13.5 H RBC 4.63 Hgb 16.3 Hct 46.1 MCV 99.6 H MCH 35.2 H MCHC 35.4 RDW 13.2 Plt Count 291 MPV 9.2 L Immature Gran % (Auto) 0.4 Neut % (Auto) 72.1 Lymph % (Auto) 15.8 L [place] % (Auto) 6.2 Eos % (Auto) 4.8 H Baso % (Auto) 0.7 Lymph # (Auto) 2.1 [place] # (Auto) 0.8 Eos # (Auto) 0.6 H Baso # (Auto) 0.1 Abs Immat Gran (auto) 0.05 H Absolute Neuts (auto) 9.7 H Absolute Nucleated RBC 0.000 Nucleated RBC % (auto) 0.0 Sodium 140 137 Potassium 4.3 4.5 Chloride 108 108 Carbon Dioxide 21 L 23 Anion Gap 15 11 L BUN 10 13 Creatinine 0.79 0.93 Estim Creat Clear Calc 108.1 91.8 Estimated GFR > 60 > 60 Random Glucose 80 84 Calcium 9.3 9.2 Total Bilirubin 0.4 1.2 H AST 33 34 ALT 35 32 Alkaline Phosphatase 70 72 Total Protein 7.4 7.3 Albumin 4.4 4.3 Triglycerides Cholesterol LDL Cholesterol, Calc HDL Cholesterol Lipase 34 Hold Yellow Top See Note Urine Color Yellow Urine Appearance Clear Urine pH 5.5 Ur Specific [place] <= 1.005 Urine Protein Negative Urine Glucose (UA) Negative Urine Ketones Negative Urine Blood Negative Urine Nitrite Negative Ur Leukocyte Esterase Negative Urine Opiates Screen Not Detected Ur Buprenorphine Scrn Not Detected Ur Oxycodone Screen Not Detected Urine Methadone Screen Not Detected Urine Fentanyl Screen Not Detected Ur Barbiturates Screen Not Detected Ur Phencyclidine Scrn Not Detected Ur Amphetamines Screen Not Detected U Benzodiazepines Scrn Not Detected Urine Cocaine Screen Not Detected U Marijuana (THC) Screen POSITIVE H Ethyl Alcohol 152 11/04/24 08:05 WBC RBC Hgb Hct MCV MCH MCHC RDW Plt Count MPV Immature Gran % (Auto) Neut % (Auto) Lymph % (Auto) [place] % (Auto) Eos % (Auto) Baso % (Auto) Lymph # (Auto) [place] # (Auto) Eos # (Auto) Baso # (Auto) Abs Immat Gran (auto) Absolute Neuts (auto) Absolute Nucleated RBC Nucleated RBC % (auto) Sodium Potassium Chloride Carbon Dioxide Anion Gap BUN Creatinine Estim Creat Clear Calc Estimated GFR Random Glucose Calcium Total Bilirubin AST ALT Alkaline Phosphatase Total Protein Albumin Triglycerides 145 Cholesterol 231 H LDL Cholesterol, Calc 141 H HDL Cholesterol 61 Lipase Hold Yellow Top Urine Color Urine Appearance Urine pH Ur Specific [place] Urine Protein Urine Glucose (UA) Urine Ketones Urine Blood Urine Nitrite Ur Leukocyte Esterase Urine Opiates Screen Ur Buprenorphine Scrn Ur Oxycodone Screen Urine Methadone Screen Urine Fentanyl Screen Ur Barbiturates Screen Ur Phencyclidine Scrn Ur Amphetamines Screen U Benzodiazepines Scrn Urine Cocaine Screen U Marijuana (THC) Screen Ethyl Alcohol Meds/Allergies Meds Home Medications ?Medication ?Instructions ?Recorded ?Confirmed ?Type No Known Home Meds 11/03/24 11/03/24 History Allergies Allergies Allergy/AdvReac Type Severity Reaction Status Date / Time No Known Allergies Allergy Verified 11/03/24 01:56 Mental Status Exam Mental Status Exam Narrative: Pt is alert and oriented; behavior is cooperative, calm; patient is not in distress; dressed in casual attire, disheveled; right arm brace; mood is described as depressed and affect congruent, downcast with head hanging low, tearful; eye contact avoidant; Speech is soft, slowed rate; normal prosody; psychomotor retardation present; thought process is organized and goal directed; Thought content is on hopelessness of his situation; missing his , tx; otherwise pertinent to relevant topics and without any delusional content, paranoid ideations or grandiosity; positive SI though no plans or intent; denies AVH and There is no evidence of perceptual disturbance. Patients insight and judgment impaired Assessment & Plan Assessment & Plan (1) MDD (major depressive disorder), recurrent severe, without psychosis: Status: Acute Code(s): F33.2 - Major depressive disorder, recurrent severe without psychotic features (2) Alcohol use disorder: Status: Acute Code(s): F10.90 - Alcohol use, unspecified, uncomplicated (3) Rotator cuff tear arthropathy of left shoulder: Status: Acute Code(s): M75.102 - Unspecified rotator cuff tear or rupture of left shoulder, not specified as traumatic; M12.812 - Other specific arthropathies, not elsewhere classified, left shoulder (4) Fracture of shaft of fourth metacarpal bone of right hand: Status: Acute Code(s): S62.324A - Displaced fracture of shaft of fourth metacarpal bone, right hand, initial encounter for closed fracture Plan Patient is a 54-year-old male with history of depression, alcoholism who presents for worsening depression with SI to hang himself in the face of medical illness, out of work and homeless. Patient reports that his depression and drinking started 8 years ago when his beloved . He has never tried psychiatric medications. 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 Patient has been unable to work; he has been homeless and this past week, his hopelessness increased to the point where he started planning to hang himself. Instead he self presented. Denies any drug use other than alcohol; patient drinks 1 pt and several beers a day. Denies AVH; denies any history of manic type episodes. Permission/clinical reasoning: Patient reports no depression until his 8 years ago; since then he has remained depressed and embroiled in alcoholism and has never sought treatment of any kind. Seems that psychosocial stressors mounted to the point where he became suicidal. No history of self-harm prior. Patient very reluctant to try medications however agreed that it is time and agreed to trial of Wellbutrin, risks/side effects reviewed. Plan: CV Q 15 minute checks Ativan p.r.n. with CIWA; seems that this can be discontinued as he is not scoring much Start Wellbutrin XL 150 mg daily PRNs failed Patient educated on: diagnosis, medication risk/benefits, substance abuse and therapeutic strategies Informed Consent: understands Reason for continued inpatient stay Substantial Risk for: inability to function Statement Statement: I have reviewed the history and physical and performed a pertinent examination on my patient. No changes have occurred unless specified. If the History and Physical was not performed prior to admission, the Hospitalist's service will be consulted for completing the admission physical. Time Spent With Patient Time: Total time managing care of this patient today ____ minutes.
[2024-11-04] MEDS: Acetaminophen 325 MG TABLET 650 MG PO (12:26)
[2024-11-04] MEDS: Ibuprofen 600 MG TABLET PO (14:02)
[2024-11-04 20:00] VITALS: BP 136/86; PULSE 78; RESP 16; TEMP 36.8; O2SAT 95
[2024-11-04 22:04] VITALS: BP 138/78
[2024-11-04] MEDS: cloNIDine HCL 0.1 MG TABLET PO (22:04)
[2024-11-04] MEDS: traZODone HCL 50 MG TABLET PO (22:05)
[2024-11-05 08:00] VITALS: BP 129/91; PULSE 76; RESP 14; TEMP 36.9; O2SAT 98
[2024-11-05] MEDS: Nicotine 21 MG PATCH.TD24 TRANSDERMA (08:54)
[2024-11-05] MEDS: Thiamine HCL 100 MG TABLET PO (08:55)
[2024-11-05] MEDS: buPROPion HCl XL 150 MG TAB.ER.24H PO (08:55)
[2024-11-05] MEDS: Acetaminophen 325 MG TABLET 650 MG PO ×2 (09:36→14:46)
[2024-11-05] MEDS: Ibuprofen 600 MG TABLET PO ×2 (09:37→19:34)
--- NOTE | 2024-11-05 10:01 | MHC.RECOVRN ---
AUDIT-C Brief Intervention Pt had positive screen for unhealthy alcohol use on admission, subsequently met with t/w to discuss alcohol use and recovery supports/options. This newswriter met with patient to discuss current alcohol use and concerns related to increased risk of alcohol related problems.? Pt reports that since his 8 years ago he has been drinking regularly. He is currently drinking 1/2 pt. of eve and 2 beers daily. Discussed how alcohol use has impacted health, including negative impact on relationships and mental health (depression) Withdrawal History: None Treatment History: Pt denies any inpt. tx history but does report that he is familiar with AA. Supports:? friends Discussed risk reduction strategies including drinking below the recommended limit. Provided pt with written resources including information on inpatient and outpatient treatment, DANIELLE, harm reduction, and recovery coaching. Pt plans to re-integrate into AA and focus on bettering his depression to decrease his drinking. Pt provided with t/w contact information if questions or concerns arise. Denies other questions or concerns at this time.
--- NOTE | 2024-11-05 16:36 | P.PNPSI_ITS ---
Subjective Subjective Date of Service: 11/05/24 Reason For Visit: Crisis Interim History: Met with patient; discussed with team Patient reports that he is still very depressed however he agrees that perhaps he is feeling a little better and of note, patient's affect is brighter. Patient reports very difficult time sleeping last night and that dose of trazodone perhaps helped a little but did not get him to sleep. He agrees to start mirtazapine after review of risks/side effects to help with insomnia but also with depression; also agrees to increase trazodone to 100 mg. Patient caught his right pinky finger in a door and initially was worried was broken however said it was feeling better and did not want an x-ray Mental Status Exam Mental Status Exam Narrative: Pt is alert and oriented; behavior is cooperative, calm; patient is not in distress; dressed in casual attire, improved hygiene; right forearm/hand brace; mood is described as depressed though affect a little brighter, not downcast; eye contact appropriate; Speech is normal rate, volume, prosody; no psychomotor retardation present; thought process is organized and goal directed; Thought content is on depression, psychosocial stressors; missing his , tx; otherwise pertinent to relevant topics and without any delusional content, paranoid ideations or grandiosity; intermittent passive wish but no active SI/no HI; denies AVH and There is no evidence of perceptual disturbance. Patients insight and judgment impaired but improving Diagnostics Vital Signs (24Hr): Vital Signs - 24 hr 11/04/24 20:00 11/04/24 22:04 11/05/24 08:00 Temperature 98.2 F 98.4 F Pulse Rate 78 76 Respiratory Rate 16 14 Blood Pressure 136/86 138/78 129/91 H Pulse Oximetry 95 98 Oxygen Delivery Method Room Air Room Air BMI result Body Mass Index 23.3 Labs 11/03/24 02:07 11/03/24 20:10 Labs: Laboratory Results - last 48 hr 11/03/24 11/04/24 20:10 08:05 Sodium 137 Potassium 4.5 Chloride 108 Carbon Dioxide 23 Anion Gap 11 L BUN 13 Creatinine 0.93 Estim Creat Clear Calc 91.8 Estimated GFR > 60 Random Glucose 84 Calcium 9.2 Total Bilirubin 1.2 H AST 34 ALT 32 Alkaline Phosphatase 72 Total Protein 7.3 Albumin 4.3 Triglycerides 145 Cholesterol 231 H LDL Cholesterol, Calc 141 H HDL Cholesterol 61 Medications Medications Current Medications Acetaminophen (Acetaminophen 325 Mg Tablet) 650 mg PO Q6H PRN PRN Reason: Headache/Pain Mild Scale (1-3) Last Admin: 11/05/24 14:46 Dose: 650 mg Al Hydroxide/Mg Hydroxide (Magnesium Hydrox/Alum Hydrox 30 Ml Oral.Susp) 30 ml PO Q6H PRN PRN Reason: Heartburn/Nausea Bupropion HCl (Bupropion Hcl Xl 150 Mg Tab.Er.24h) 150 mg PO DAILY [facility] Last Admin: 11/05/24 08:55 Dose: 150 mg Clonidine HCl (Clonidine Hcl 0.1 Mg Tablet) 0.1 mg PO BEDTIME [facility]; Protocol Last Admin: 11/04/24 22:04 Dose: 0.1 mg Hydroxyzine HCl (Hydroxyzine Hcl 25 Mg Tablet) 25 mg PO Q6H PRN PRN Reason: Anxiety Ibuprofen (Ibuprofen 600 Mg Tablet) 600 mg PO Q8H PRN PRN Reason: Pain, Mild (Pain Scale 1-3) Last Admin: 11/05/24 09:37 Dose: 600 mg Lorazepam (Lorazepam 1 Mg Tablet) 1 mg PO Q2H PRN PRN Reason: CIWA 8-11 Lorazepam (Lorazepam 1 Mg Tablet) 2 mg PO Q2H PRN PRN Reason: CIWA 12-15 Lorazepam (Lorazepam 1 Mg Tablet) 3 mg PO Q2H PRN PRN Reason: CIWA > 15, and call Magnesium Hydroxide (Milk Of Magnesia 30 Ml Oral.Susp) 30 ml PO DAILY PRN PRN Reason: Constipation Nicotine (Nicotine 21 Mg Patch.Td24) 21 mg TRANSDERMA DAILY [facility] Last Admin: 11/05/24 08:54 Dose: 21 mg Nicotine Polacrilex (Nicotine Polacrilex 2 Mg Gum) 4 mg BUCCAL Q2H PRN PRN Reason: Nicotine Cravings Thiamine HCl (Thiamine Hcl 100 Mg Tablet) 100 mg PO DAILY [facility] Last Admin: 11/05/24 08:55 Dose: 100 mg Trazodone HCl (Trazodone Hcl 50 Mg Tablet) 50 mg PO BEDTIME MRX1 PRN PRN Reason: Insomnia Last Admin: 11/04/24 22:05 Dose: 50 mg Allergies Allergies Allergy/AdvReac Type Severity Reaction Status Date / Time No Known Allergies Allergy Verified 11/03/24 01:56 Assessment & Plan Assessment & Plan (1) MDD (major depressive disorder), recurrent severe, without psychosis: Status: Acute Code(s): F33.2 - Major depressive disorder, recurrent severe without psychotic features (2) Alcohol use disorder: Status: Acute Code(s): F10.90 - Alcohol use, unspecified, uncomplicated (3) Rotator cuff tear arthropathy of left shoulder: Status: Acute Code(s): M75.102 - Unspecified rotator cuff tear or rupture of left shoulder, not specified as traumatic; M12.812 - Other specific arthropathies, not elsewhere classified, left shoulder (4) Fracture of shaft of fourth metacarpal bone of right hand: Status: Acute Code(s): S62.324A - Displaced fracture of shaft of fourth metacarpal bone, right hand, initial encounter for closed fracture Plan Patient is a 54-year-old male with history of depression, alcoholism who presents for worsening depression with SI to hang himself in the face of medical illness, out of work and homeless. Patient reports that his depression and drinking started 8 years ago when his beloved . He has never tried psychiatric medications. 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 Patient has been unable to work; he has been homeless and this past week, his hopelessness increased to the point where he started planning to hang himself. Instead he self presented. Denies any drug use other than alcohol; patient drinks 1 pt and several beers a day. Denies AVH; denies any history of manic type episodes. Permission/clinical reasoning: Patient reports no depression until his 8 years ago; since then he has remained depressed and embroiled in alcoholism and has never sought treatment of any kind. Seems that psychosocial stressors mounted to the point where he became suicidal. No history of self-harm prior. Patient very reluctant to try medications however agreed that it is time and agreed to trial of Wellbutrin, risks/side effects reviewed. Hospital course: 11/05 Patient reports that he is still very depressed however he agrees that perhaps he is feeling a little better and of note, patient's affect is brighter and he is much more social in the milieu. Patient reports very difficult time sleeping last night and that dose of trazodone perhaps helped a little but did not get him to sleep. He agrees to start mirtazapine after review of risks/side effects to help with insomnia but also with depression; also agrees to increase trazodone to 100 mg. Patient caught his right pinky finger in a door and initially was worried was broken however said it was feeling better and did not want an x-ray -patient has chronic insomnia and Wellbutrin was started the following morning so not contributory Plan: CV Q 15 minute checks DC CIWA; patient not scoring Continue Wellbutrin XL 150 mg daily Start mirtazapine 7.5 mg for insomnia and anxiety/depression Increase in scheduled trazodone 100 mg q.h.s. for insomnia Continue clonidine 0.1 mg at bedtime for insomnia/anxiety Patient educated on: diagnosis, medication risk/benefits, substance abuse and medical condition Informed Consent: understands Reason for continued inpatient stay Substantial Risk for: rapid decompensation Time Spent With Patient Time: Total time managing care of this patient today ____ minutes.
[2024-11-05 20:00] VITALS: BP 122/75; PULSE 87; RESP 16; TEMP 36.8; O2SAT 97
[2024-11-05] MEDS: Mirtazapine 7.5 MG TABLET PO (20:34)
[2024-11-05] MEDS: traZODone HCL 100 MG TABLET PO (20:34)
[2024-11-05] MEDS: cloNIDine HCL 0.1 MG TABLET PO (20:34)
[2024-11-06 07:35] VITALS: BP 99/66; PULSE 76; RESP 16; TEMP 36.8; O2SAT 98
[2024-11-06] MEDS: Nicotine 21 MG PATCH.TD24 TRANSDERMA (08:55)
[2024-11-06] MEDS: buPROPion HCl XL 150 MG TAB.ER.24H PO (08:56)
[2024-11-06] MEDS: Thiamine HCL 100 MG TABLET PO (08:56)
--- NOTE | 2024-11-06 09:03 | HO.PSYCHPN ---
Subjective Subjective Date of Service: 11/06/24 Reason For Visit: Crisis Subjective Notes: Conditional Voluntary Interim History: Patient reports feeling anxious and depressed today; he reports suicidal ideation with plan to hang myself . denies HI/VH/AH. Patient reports poor sleep d/t nightmares; discussed starting prazosin; risks/benefits reviewed. Pt agreed to trial. Patient stated, he is hoping to get into a senior care after I leave here . Increase: Remeron to 15mg PO bedtime Hydroxyzine to 50mg PO Q6HR PRN Start: Prazosin 1mg PO bedtime Medication Compliance: Yes Side effects from medications: No Review of Systems Constitutional: Reports as per HPI Eyes: Reports as per HPI Reports as per HPI Cardiovascular: Reports as per HPI Respiratory: Reports as per HPI Gastrointestinal: Reports as per HPI Genitourinary: Reports as per HPI Musculoskeletal: Reports as per HPI Skin/Breast: Reports as per HPI Reports as per HPI Psychiatric: Reports as per HPI Endocrine: Reports as per HPI Hematologic/Lymphatic: Reports as per HPI Allergic/Immunologic: Reports as per HPI Mental Status Exam Mental Status Exam Narrative: Pt is alert and oriented; behavior is cooperative and calm; dressed in casual attire; mood is described as depressed and anxious ; eye contact appropriate; Speech is normal rate, volume and not pressured; thought process is organized and goal directed; Thought content is on tx; otherwise pertinent to relevant topics and without any delusional content, paranoid ideations or grandiosity; denies HI/VH/AH. Pt reports suicidal ideation with plan to hang myself . Diagnostics Vital Signs (24Hr): Vital Signs - 24 hr 11/05/24 20:00 11/06/24 07:35 Temperature 98.3 F 98.2 F Pulse Rate 87 76 Respiratory Rate 16 16 Blood Pressure 122/75 99/66 Pulse Oximetry 97 98 Oxygen Delivery Method Room Air Room Air BMI result Body Mass Index 23.3 Labs 11/03/24 02:07 11/03/24 20:10 Labs: Laboratory Results - last 48 hr 11/04/24 08:05 Triglycerides 145 Cholesterol 231 H LDL Cholesterol, Calc 141 H HDL Cholesterol 61 Medications Medications Current Medications Acetaminophen (Acetaminophen 325 Mg Tablet) 650 mg PO Q6H PRN PRN Reason: Headache/Pain Mild Scale (1-3) Last Admin: 11/05/24 14:46 Dose: 650 mg Al Hydroxide/Mg Hydroxide (Magnesium Hydrox/Alum Hydrox 30 Ml Oral.Susp) 30 ml PO Q6H PRN PRN Reason: Heartburn/Nausea Bupropion HCl (Bupropion Hcl Xl 150 Mg Tab.Er.24h) 150 mg PO DAILY [facility] Last Admin: 11/06/24 08:56 Dose: 150 mg Clonidine HCl (Clonidine Hcl 0.1 Mg Tablet) 0.1 mg PO BEDTIME [facility]; Protocol Last Admin: 11/05/24 20:34 Dose: 0.1 mg Hydroxyzine HCl (Hydroxyzine Hcl 25 Mg Tablet) 25 mg PO Q6H PRN PRN Reason: Anxiety Ibuprofen (Ibuprofen 600 Mg Tablet) 600 mg PO Q8H PRN PRN Reason: Pain, Mild (Pain Scale 1-3) Last Admin: 11/05/24 19:34 Dose: 600 mg Magnesium Hydroxide (Milk Of Magnesia 30 Ml Oral.Susp) 30 ml PO DAILY PRN PRN Reason: Constipation Mirtazapine (Mirtazapine 7.5 Mg Tablet) 7.5 mg PO BEDTIME [facility] Last Admin: 11/05/24 20:34 Dose: 7.5 mg Nicotine (Nicotine 21 Mg Patch.Td24) 21 mg TRANSDERMA DAILY [facility] Last Admin: 11/06/24 08:55 Dose: 21 mg Nicotine Polacrilex (Nicotine Polacrilex 2 Mg Gum) 4 mg BUCCAL Q2H PRN PRN Reason: Nicotine Cravings Thiamine HCl (Thiamine Hcl 100 Mg Tablet) 100 mg PO DAILY [facility] Last Admin: 11/06/24 08:56 Dose: 100 mg Trazodone HCl (Trazodone Hcl 100 Mg Tablet) 100 mg PO BEDTIME PRN PRN Reason: Insomnia Last Admin: 11/05/24 20:34 Dose: 100 mg Allergies Allergies Allergy/AdvReac Type Severity Reaction Status Date / Time No Known Allergies Allergy Verified 11/03/24 01:56 Assessment & Plan Assessment & Plan (1) MDD (major depressive disorder), recurrent severe, without psychosis: Status: Acute Code(s): F33.2 - Major depressive disorder, recurrent severe without psychotic features (2) Alcohol use disorder: Status: Acute Code(s): F10.90 - Alcohol use, unspecified, uncomplicated (3) Rotator cuff tear arthropathy of left shoulder: Status: Acute Code(s): M75.102 - Unspecified rotator cuff tear or rupture of left shoulder, not specified as traumatic; M12.812 - Other specific arthropathies, not elsewhere classified, left shoulder (4) Fracture of shaft of fourth metacarpal bone of right hand: Status: Acute Code(s): S62.324A - Displaced fracture of shaft of fourth metacarpal bone, right hand, initial encounter for closed fracture Plan Patient is a 54-year-old male with history of depression, alcoholism who presents for worsening depression with SI to hang himself in the face of medical illness, out of work and homeless. Patient reports that his depression and drinking started 8 years ago when his beloved . He has never tried psychiatric medications. 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 Patient has been unable to work; he has been homeless and this past week, his hopelessness increased to the point where he started planning to hang himself. Instead he self presented. Denies any drug use other than alcohol; patient drinks 1 pt and several beers a day. Denies AVH; denies any history of manic type episodes. Permission/clinical reasoning: Patient reports no depression until his 8 years ago; since then he has remained depressed and embroiled in alcoholism and has never sought treatment of any kind. Seems that psychosocial stressors mounted to the point where he became suicidal. No history of self-harm prior. Patient very reluctant to try medications however agreed that it is time and agreed to trial of Wellbutrin, risks/side effects reviewed. Plan: CV Q 15 minute checks Ativan p.r.n. with CIWA; seems that this can be discontinued as he is not scoring much Start Wellbutrin XL 150 mg daily PRNs failed 11/06: Patient reports feeling anxious and depressed today; he reports suicidal ideation with plan to hang myself . denies HI/VH/AH. Patient reports poor sleep d/t nightmares; discussed starting prazosin; risks/benefits reviewed. Pt agreed to trial. Patient stated, he is hoping to get into a senior care after I leave here . Increase: Remeron to 15mg PO bedtime Hydroxyzine to 50mg PO Q6HR PRN Start: Prazosin 1mg PO bedtime Patient educated on: diagnosis, medication risk/benefits and therapeutic strategies Reason for continued inpatient stay Substantial Risk for: harm to self and med/psych decompensation Time Spent With Patient Time: Total time managing care of this patient today _20___ minutes.
[2024-11-06] MEDS: Ibuprofen 600 MG TABLET PO (10:57)
--- NOTE | 2024-11-06 11:13 | MHC.CLN ---
NUTRITION CONSULT-ROUTINE. PATIENT REPORTS RECENT 12# WEIGHT LOSS. LIKELY CONTRIBUTORS TO WEIGHT LOSS ETOH USE, DEPRESSION, HOMELESSNESS. BMI WITHIN NORMAL LIMITS IF PO LESS THAN 50% MOST MEALS, CONSIDER ADDING ENSURE BID.
[2024-11-06] MEDS: Acetaminophen 325 MG TABLET 650 MG PO (17:18)
[2024-11-06 20:05] VITALS: BP 128/92; PULSE 99; RESP 16; TEMP 36.3; O2SAT 95
[2024-11-06] MEDS: Mirtazapine 15 MG TABLET PO (22:45)
[2024-11-06 22:46] VITALS: BP 125/92
[2024-11-06] MEDS: traZODone HCL 100 MG TABLET PO (22:46)
[2024-11-06] MEDS: Prazosin HCL 1 MG CAPSULE PO (22:46)
[2024-11-07 08:00] VITALS: BP 102/68; PULSE 91; RESP 14; TEMP 36.8; O2SAT 97
[2024-11-07] MEDS: Thiamine HCL 100 MG TABLET PO (09:06)
[2024-11-07] MEDS: Nicotine 21 MG PATCH.TD24 TRANSDERMA (09:06)
[2024-11-07] MEDS: buPROPion HCl XL 150 MG TAB.ER.24H PO (09:06)
[2024-11-07] MEDS: Ibuprofen 600 MG TABLET PO ×2 (09:08→16:53)
--- NOTE | 2024-11-07 09:40 | P.PNPSI_ITS ---
Subjective Subjective Date of Service: 11/07/24 Reason For Visit: Crisis Subjective Notes: Conditional Voluntary Interim History: Patient continues to report feeling anxious and depressed today; pt stated, I feel like my depression is becoming tolerable but my anxiety is high. I'm no longer feeling suicidal . denies SI/HI/VH/AH. Patient reports poor sleep but states he did not have nightmares last night. Added Seroquel 25mg PO BID PRN Medication Compliance: Yes Side effects from medications: No Attending Groups: Intermittent Review of Systems Constitutional: Reports as per HPI Eyes: Reports as per HPI Reports as per HPI Cardiovascular: Reports as per HPI Respiratory: Reports as per HPI Gastrointestinal: Reports as per HPI Genitourinary: Reports as per HPI Musculoskeletal: Reports as per HPI Skin/Breast: Reports as per HPI Reports as per HPI Psychiatric: Reports as per HPI Endocrine: Reports as per HPI Hematologic/Lymphatic: Reports as per HPI Allergic/Immunologic: Reports as per HPI Mental Status Exam Mental Status Exam Narrative: Pt is alert and oriented; behavior is cooperative and calm; dressed in casual attire; mood is described as depressed and anxious ; eye contact appropriate; Speech is normal rate, volume and not pressured; thought process is organized and goal directed; Thought content is on tx; otherwise pertinent to relevant topics and without any delusional content, paranoid ideations or grandiosity; denies SI/HI/VH/AH. Diagnostics Vital Signs (24Hr): Vital Signs - 24 hr 11/06/24 20:05 11/06/24 22:46 11/07/24 08:00 Temperature 97.4 F 98.2 F Pulse Rate 99 91 Respiratory Rate 16 14 Blood Pressure 128/92 H 125/92 H 102/68 Pulse Oximetry 95 97 Oxygen Delivery Method Room Air Room Air BMI result Body Mass Index 23.3 Labs 11/03/24 02:07 11/03/24 20:10 Medications Medications Current Medications Acetaminophen (Acetaminophen 325 Mg Tablet) 650 mg PO Q6H PRN PRN Reason: Headache/Pain Mild Scale (1-3) Last Admin: 11/06/24 17:18 Dose: 650 mg Al Hydroxide/Mg Hydroxide (Magnesium Hydrox/Alum Hydrox 30 Ml Oral.Susp) 30 ml PO Q6H PRN PRN Reason: Heartburn/Nausea Bupropion HCl (Bupropion Hcl Xl 150 Mg Tab.Er.24h) 150 mg PO DAILY [facility] Last Admin: 11/07/24 09:06 Dose: 150 mg Hydroxyzine HCl (Hydroxyzine Hcl 50 Mg Tablet) 50 mg PO Q6H PRN PRN Reason: Anxiety Ibuprofen (Ibuprofen 600 Mg Tablet) 600 mg PO Q8H PRN PRN Reason: Pain, Mild (Pain Scale 1-3) Last Admin: 11/07/24 09:08 Dose: 600 mg Magnesium Hydroxide (Milk Of Magnesia 30 Ml Oral.Susp) 30 ml PO DAILY PRN PRN Reason: Constipation Mirtazapine (Mirtazapine 15 Mg Tablet) 15 mg PO BEDTIME [facility] Last Admin: 11/06/24 22:45 Dose: 15 mg Nicotine (Nicotine 21 Mg Patch.Td24) 21 mg TRANSDERMA DAILY [facility] Last Admin: 11/07/24 09:06 Dose: 21 mg Nicotine Polacrilex (Nicotine Polacrilex 2 Mg Gum) 4 mg BUCCAL Q2H PRN PRN Reason: Nicotine Cravings Prazosin HCl (Prazosin Hcl 1 Mg Capsule) 1 mg PO BEDTIME [facility]; Protocol Last Admin: 11/06/24 22:46 Dose: 1 mg Thiamine HCl (Thiamine Hcl 100 Mg Tablet) 100 mg PO DAILY [facility] Last Admin: 11/07/24 09:06 Dose: 100 mg Trazodone HCl (Trazodone Hcl 100 Mg Tablet) 100 mg PO BEDTIME PRN PRN Reason: Insomnia Last Admin: 11/06/24 22:46 Dose: 100 mg Allergies Allergies Allergy/AdvReac Type Severity Reaction Status Date / Time No Known Allergies Allergy Verified 11/03/24 01:56 Assessment & Plan Assessment & Plan (1) MDD (major depressive disorder), recurrent severe, without psychosis: Status: Acute Code(s): F33.2 - Major depressive disorder, recurrent severe without psychotic features (2) Alcohol use disorder: Status: Acute Code(s): F10.90 - Alcohol use, unspecified, uncomplicated (3) Rotator cuff tear arthropathy of left shoulder: Status: Acute Code(s): M75.102 - Unspecified rotator cuff tear or rupture of left shoulder, not specified as traumatic; M12.812 - Other specific arthropathies, not elsewhere classified, left shoulder (4) Fracture of shaft of fourth metacarpal bone of right hand: Status: Acute Code(s): S62.324A - Displaced fracture of shaft of fourth metacarpal bone, right hand, initial encounter for closed fracture Plan Patient is a 54-year-old male with history of depression, alcoholism who presents for worsening depression with SI to hang himself in the face of medical illness, out of work and homeless. Patient reports that his depression and drinking started 8 years ago when his beloved . He has never tried psychiatric medications. 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 Patient has been unable to work; he has been homeless and this past week, his hopelessness increased to the point where he started planning to hang himself. Instead he self presented. Denies any drug use other than alcohol; patient drinks 1 pt and several beers a day. Denies AVH; denies any history of manic type episodes. Permission/clinical reasoning: Patient reports no depression until his 8 years ago; since then he has remained depressed and embroiled in alcoholism and has never sought treatment of any kind. Seems that psychosocial stressors mounted to the point where he became suicidal. No history of self-harm prior. Patient very reluctant to try medications however agreed that it is time and agreed to trial of Wellbutrin, risks/side effects reviewed. Plan: CV Q 15 minute checks Ativan p.r.n. with CIWA; seems that this can be discontinued as he is not scoring much Start Wellbutrin XL 150 mg daily PRNs failed 11/06: Patient reports feeling anxious and depressed today; he reports suicidal ideation with plan to hang myself . denies HI/VH/AH. Patient reports poor sleep d/t nightmares; discussed starting prazosin; risks/benefits reviewed. Pt agreed to trial. Patient stated, he is hoping to get into a intermediate after I leave here . Increase: Remeron to 15mg PO bedtime Hydroxyzine to 50mg PO Q6HR PRN Start: Prazosin 1mg PO bedtime 11/07: Patient continues to report feeling anxious and depressed today; pt stated, I feel like my depression is becoming tolerable but my anxiety is high. I'm no longer feeling suicidal . denies SI/HI/VH/AH. Patient reports poor sleep but states he did not have nightmares last night. Added Seroquel 25mg PO BID PRN Patient educated on: diagnosis, medication risk/benefits and therapeutic strategies Reason for continued inpatient stay Substantial Risk for: med/psych decompensation Time Spent With Patient Time: Total time managing care of this patient today _20___ minutes.
[2024-11-07] MEDS: guaiFENesin LA 600 MG TAB.ER.12H PO (16:51)
[2024-11-07 20:00] VITALS: BP 115/80; PULSE 80; RESP 18; TEMP 36.5; O2SAT 95
[2024-11-07] MEDS: Prazosin HCL 1 MG CAPSULE PO (21:50)
[2024-11-07] MEDS: traZODone HCL 100 MG TABLET PO (21:50)
[2024-11-07] MEDS: Mirtazapine 15 MG TABLET PO (21:50)
[2024-11-07] MEDS: QUEtiapine Fumarate 25 MG TABLET PO (21:50)
[2024-11-08 07:36] VITALS: BP 113/72; PULSE 85; RESP 16; TEMP 36.9; O2SAT 98
[2024-11-08] MEDS: buPROPion HCl XL 150 MG TAB.ER.24H PO (08:58)
[2024-11-08] MEDS: Nicotine 21 MG PATCH.TD24 TRANSDERMA (08:59)
[2024-11-08] MEDS: Thiamine HCL 100 MG TABLET PO (08:59)
--- NOTE | 2024-11-08 09:32 | P.PNPSI_ITS ---
Subjective Subjective Date of Service: 11/08/24 Reason For Visit: Crisis Subjective Notes: Conditional Voluntary Interim History: Active on unit. social with select peers. listening to music with unit headphones. Pt reports mood has improved since admission; pt stated, I feel sad at times but it's better than when I came in . denies SI/HI/VH/AH. Patient continues to report poor sleep; states he is worried about having night terrors . DC Trazodone 100mg PO bedtime PRN Start: Seroquel 75mg PO bedtime Medication Compliance: Yes Side effects from medications: No Attending Groups: Intermittent Review of Systems Constitutional: Reports as per HPI Eyes: Reports as per HPI Reports as per HPI Cardiovascular: Reports as per HPI Respiratory: Reports as per HPI Gastrointestinal: Reports as per HPI Genitourinary: Reports as per HPI Musculoskeletal: Reports as per HPI Skin/Breast: Reports as per HPI Reports as per HPI Psychiatric: Reports as per HPI Endocrine: Reports as per HPI Hematologic/Lymphatic: Reports as per HPI Allergic/Immunologic: Reports as per HPI Mental Status Exam Mental Status Exam Narrative: Pt is alert and oriented; behavior is cooperative and calm; dressed in casual attire; mood is described as depressed and anxious ; eye contact appropriate; Speech is normal rate, volume and not pressured; thought process is organized and goal directed; Thought content is on tx; denies SI/HI/VH/AH. Diagnostics Vital Signs (24Hr): Vital Signs - 24 hr 11/07/24 20:00 11/08/24 07:36 Temperature 97.7 F 98.5 F Pulse Rate 80 85 Respiratory Rate 18 16 Blood Pressure 115/80 113/72 Pulse Oximetry 95 98 Oxygen Delivery Method Room Air Room Air BMI result Body Mass Index 23.3 Labs 11/03/24 02:07 11/03/24 20:10 Medications Medications Current Medications Acetaminophen (Acetaminophen 325 Mg Tablet) 650 mg PO Q6H PRN PRN Reason: Headache/Pain Mild Scale (1-3) Last Admin: 11/06/24 17:18 Dose: 650 mg Al Hydroxide/Mg Hydroxide (Magnesium Hydrox/Alum Hydrox 30 Ml Oral.Susp) 30 ml PO Q6H PRN PRN Reason: Heartburn/Nausea Bupropion HCl (Bupropion Hcl Xl 150 Mg Tab.Er.24h) 150 mg PO DAILY AUTUMN Last Admin: 11/08/24 08:58 Dose: 150 mg Clonidine HCl (Clonidine Hcl 0.1 Mg Tablet) 0.1 mg PO BID PRN; Protocol PRN Reason: Anxiety Guaifenesin (Guaifenesin La 600 Mg Tab.Er.12h) 600 mg PO BID PRN PRN Reason: Cough Last Admin: 11/07/24 16:51 Dose: 600 mg Hydroxyzine HCl (Hydroxyzine Hcl 50 Mg Tablet) 50 mg PO Q6H PRN PRN Reason: Anxiety Ibuprofen (Ibuprofen 600 Mg Tablet) 600 mg PO Q8H PRN PRN Reason: Pain, Mild (Pain Scale 1-3) Last Admin: 11/07/24 16:53 Dose: 600 mg Magnesium Hydroxide (Milk Of Magnesia 30 Ml Oral.Susp) 30 ml PO DAILY PRN PRN Reason: Constipation Mirtazapine (Mirtazapine 15 Mg Tablet) 15 mg PO BEDTIME AUTUMN Last Admin: 11/07/24 21:50 Dose: 15 mg Nicotine (Nicotine 21 Mg Patch.Td24) 21 mg TRANSDERMA DAILY AUTUMN Last Admin: 11/08/24 08:59 Dose: 21 mg Nicotine Polacrilex (Nicotine Polacrilex 2 Mg Gum) 4 mg BUCCAL Q2H PRN PRN Reason: Nicotine Cravings Prazosin HCl (Prazosin Hcl 1 Mg Capsule) 1 mg PO BEDTIME AUTUMN; Protocol Last Admin: 11/07/24 21:50 Dose: 1 mg Quetiapine Fumarate (Quetiapine Fumarate 25 Mg Tablet) 25 mg PO BID PRN PRN Reason: Anxiety Last Admin: 11/07/24 21:50 Dose: 25 mg Thiamine HCl (Thiamine Hcl 100 Mg Tablet) 100 mg PO DAILY AUTUMN Last Admin: 11/08/24 08:59 Dose: 100 mg Trazodone HCl (Trazodone Hcl 100 Mg Tablet) 100 mg PO BEDTIME PRN PRN Reason: Insomnia Last Admin: 11/07/24 21:50 Dose: 100 mg Allergies Allergies Allergy/AdvReac Type Severity Reaction Status Date / Time No Known Allergies Allergy Verified 11/03/24 01:56 Assessment & Plan Assessment & Plan (1) MDD (major depressive disorder), recurrent severe, without psychosis: Status: Acute Code(s): F33.2 - Major depressive disorder, recurrent severe without psychotic features (2) Alcohol use disorder: Status: Acute Code(s): F10.90 - Alcohol use, unspecified, uncomplicated (3) Rotator cuff tear arthropathy of left shoulder: Status: Acute Code(s): M75.102 - Unspecified rotator cuff tear or rupture of left shoulder, not specified as traumatic; M12.812 - Other specific arthropathies, not elsewhere classified, left shoulder (4) Fracture of shaft of fourth metacarpal bone of right hand: Status: Acute Code(s): S62.324A - Displaced fracture of shaft of fourth metacarpal bone, right hand, initial encounter for closed fracture Plan Patient is a 54-year-old male with history of depression, alcoholism who presents for worsening depression with SI to hang himself in the face of medical illness, out of work and homeless. Patient reports that his depression and drinking started 8 years ago when his beloved . He has never tried psychiatric medications. 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 Patient has been unable to work; he has been homeless and this past week, his hopelessness increased to the point where he started planning to hang himself. Instead he self presented. Denies any drug use other than alcohol; patient drinks 1 pt and several beers a day. Denies AVH; denies any history of manic type episodes. Permission/clinical reasoning: Patient reports no depression until his 8 years ago; since then he has remained depressed and embroiled in alcoholism and has never sought treatment of any kind. Seems that psychosocial stressors mounted to the point where he became suicidal. No history of self-harm prior. Patient very reluctant to try medications however agreed that it is time and agreed to trial of Wellbutrin, risks/side effects reviewed. Plan: CV Q 15 minute checks Ativan p.r.n. with CIWA; seems that this can be discontinued as he is not scoring much Start Wellbutrin XL 150 mg daily PRNs failed 11/06: Patient reports feeling anxious and depressed today; he reports suicidal ideation with plan to hang myself . denies HI/VH/AH. Patient reports poor sleep d/t nightmares; discussed starting prazosin; risks/benefits reviewed. Pt agreed to trial. Patient stated, he is hoping to get into a senior care after I leave here . Increase: Remeron to 15mg PO bedtime Hydroxyzine to 50mg PO Q6HR PRN Start: Prazosin 1mg PO bedtime 11/07: Patient continues to report feeling anxious and depressed today; pt stated, I feel like my depression is becoming tolerable but my anxiety is high. I'm no longer feeling suicidal . denies SI/HI/VH/AH. Patient reports poor sleep but states he did not have nightmares last night. Added Seroquel 25mg PO BID PRN 11/08: Active on unit. social with select peers. listening to music with unit headphones. Pt reports mood has improved since admission; pt stated, I feel sad at times but it's better than when I came in . denies SI/HI/VH/AH. Patient continues to report poor sleep; states he is worried about having night terrors . DC Trazodone 100mg PO bedtime PRN Start: Seroquel 75mg PO bedtime Patient educated on: diagnosis and medication risk/benefits Reason for continued inpatient stay Substantial Risk for: med/psych decompensation Time Spent With Patient Time: Total time managing care of this patient today _20___ minutes.
[2024-11-08] MEDS: Ibuprofen 600 MG TABLET PO (11:06)
[2024-11-08] MEDS: guaiFENesin LA 600 MG TAB.ER.12H PO (14:28)
[2024-11-08 20:00] VITALS: PULSE 91; RESP 16; TEMP 36.6; O2SAT 99
[2024-11-08] MEDS: QUEtiapine Fumarate 25 MG TABLET 75 MG PO (22:37)
[2024-11-08 22:38] VITALS: BP 140/81
[2024-11-08] MEDS: cloNIDine HCL 0.1 MG TABLET PO (22:38)
[2024-11-08] MEDS: Mirtazapine 15 MG TABLET PO (22:38)
[2024-11-08 22:39] VITALS: BP 140/81
[2024-11-08] MEDS: Prazosin HCL 1 MG CAPSULE PO (22:39)
[2024-11-09 07:00] VITALS: BMI 24.1
[2024-11-09 07:40] VITALS: BP 111/75; PULSE 71; RESP 16; TEMP 36.8; O2SAT 99
[2024-11-09] MEDS: Thiamine HCL 100 MG TABLET PO (08:52)
[2024-11-09] MEDS: Nicotine 21 MG PATCH.TD24 TRANSDERMA (08:52)
[2024-11-09] MEDS: buPROPion HCl XL 150 MG TAB.ER.24H PO (08:52)
[2024-11-09] MEDS: Ibuprofen 600 MG TABLET PO ×2 (13:23→20:57)
--- NOTE | 2024-11-09 16:08 | P.PNPSI_ITS ---
Subjective Subjective Date of Service: 11/09/24 Reason For Visit: Crisis Interim History: calm, cooperative. no nightmares, just bizarre dream about superariok[employer]. DFA, states he did not fall asleep until 0500. agreeable to increase prazosin to 2 mg tonight and discuss further with attending tomorrow. per staff, appeared to have slept better last NOC. got seroquel 75 mg last NOC, had prazosin as well. Mental Status Exam Mental Status Exam Narrative: Pt is alert and oriented; behavior is cooperative and calm; dressed in casual attire; mood is described as depressed and anxious; eye contact appropriate; Speech is normal rate, volume and not pressured; thought process is organized and goal directed; Thought content is on tx; denies SI/HI/VH/AH. Diagnostics Vital Signs (24Hr): Vital Signs - 24 hr 11/08/24 20:00 11/08/24 22:38 11/08/24 22:39 Temperature 97.8 F Pulse Rate 91 Respiratory Rate 16 Blood Pressure 140/81 H 140/81 H Pulse Oximetry 99 Oxygen Delivery Method Room Air 11/09/24 07:40 Temperature 98.2 F Pulse Rate 71 Respiratory Rate 16 Blood Pressure 111/75 Pulse Oximetry 99 Oxygen Delivery Method Room Air BMI result Body Mass Index 24.1 Labs 11/03/24 02:07 11/03/24 20:10 Medications Medications Current Medications Acetaminophen (Acetaminophen 325 Mg Tablet) 650 mg PO Q6H PRN PRN Reason: Headache/Pain Mild Scale (1-3) Last Admin: 11/06/24 17:18 Dose: 650 mg Al Hydroxide/Mg Hydroxide (Magnesium Hydrox/Alum Hydrox 30 Ml Oral.Susp) 30 ml PO Q6H PRN PRN Reason: Heartburn/Nausea Bupropion HCl (Bupropion Hcl Xl 150 Mg Tab.Er.24h) 150 mg PO DAILY AUTUMN Last Admin: 11/09/24 08:52 Dose: 150 mg Clonidine HCl (Clonidine Hcl 0.1 Mg Tablet) 0.1 mg PO BID PRN; Protocol PRN Reason: Anxiety Last Admin: 11/08/24 22:38 Dose: 0.1 mg Guaifenesin (Guaifenesin La 600 Mg Tab.Er.12h) 600 mg PO BID PRN PRN Reason: Cough Last Admin: 11/08/24 14:28 Dose: 600 mg Hydroxyzine HCl (Hydroxyzine Hcl 50 Mg Tablet) 50 mg PO Q6H PRN PRN Reason: Anxiety Ibuprofen (Ibuprofen 600 Mg Tablet) 600 mg PO Q8H PRN PRN Reason: Pain, Mild (Pain Scale 1-3) Last Admin: 11/09/24 13:23 Dose: 600 mg Magnesium Hydroxide (Milk Of Magnesia 30 Ml Oral.Susp) 30 ml PO DAILY PRN PRN Reason: Constipation Mirtazapine (Mirtazapine 15 Mg Tablet) 15 mg PO BEDTIME AUTUMN Last Admin: 11/08/24 22:38 Dose: 15 mg Nicotine (Nicotine 21 Mg Patch.Td24) 21 mg TRANSDERMA DAILY AUTUMN Last Admin: 11/09/24 08:52 Dose: 21 mg Nicotine Polacrilex (Nicotine Polacrilex 2 Mg Gum) 4 mg BUCCAL Q2H PRN PRN Reason: Nicotine Cravings Prazosin HCl (Prazosin Hcl 1 Mg Capsule) 2 mg PO BEDTIME AUTUMN; Protocol Quetiapine Fumarate (Quetiapine Fumarate 25 Mg Tablet) 75 mg PO BEDTIME AUTUMN Last Admin: 11/08/24 22:37 Dose: 75 mg Thiamine HCl (Thiamine Hcl 100 Mg Tablet) 100 mg PO DAILY AUTUMN Last Admin: 11/09/24 08:52 Dose: 100 mg Allergies Allergies Allergy/AdvReac Type Severity Reaction Status Date / Time No Known Allergies Allergy Verified 11/03/24 01:56 Assessment & Plan Assessment & Plan (1) MDD (major depressive disorder), recurrent severe, without psychosis: Status: Acute Code(s): F33.2 - Major depressive disorder, recurrent severe without psychotic features (2) Alcohol use disorder: Status: Acute Code(s): F10.90 - Alcohol use, unspecified, uncomplicated (3) Rotator cuff tear arthropathy of left shoulder: Status: Acute Code(s): M75.102 - Unspecified rotator cuff tear or rupture of left shoulder, not specified as traumatic; M12.812 - Other specific arthropathies, not elsewhere classified, left shoulder (4) Fracture of shaft of fourth metacarpal bone of right hand: Status: Acute Code(s): S62.324A - Displaced fracture of shaft of fourth metacarpal bone, right hand, initial encounter for closed fracture Plan Patient is a 54-year-old male with history of depression, alcoholism who presents for worsening depression with SI to hang himself in the face of medical illness, out of work and homeless. Patient reports that his depression and drinking started 8 years ago when his beloved . He has never tried psychiatric medications. 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 Patient has been unable to work; he has been homeless and this past week, his hopelessness increased to the point where he started planning to hang himself. Instead he self presented. Denies any drug use other than alcohol; patient drinks 1 pt and several beers a day. Denies AVH; denies any history of manic type episodes. Permission/clinical reasoning: Patient reports no depression until his 8 years ago; since then he has remained depressed and embroiled in alcoholism and has never sought treatment of any kind. Seems that psychosocial stressors mounted to the point where he became suicidal. No history of self-harm prior. Patient very reluctant to try medications however agreed that it is time and agreed to trial of Wellbutrin, risks/side effects reviewed. Plan: CV Q 15 minute checks Ativan p.r.n. with CIWA; seems that this can be discontinued as he is not scoring much Start Wellbutrin XL 150 mg daily PRNs failed 11/06: Patient reports feeling anxious and depressed today; he reports suicidal ideation with plan to hang myself . denies HI/VH/AH. Patient reports poor sleep d/t nightmares; discussed starting prazosin; risks/benefits reviewed. Pt agreed to trial. Patient stated, he is hoping to get into a skilled nursing after I leave here . Increase: Remeron to 15mg PO bedtime Hydroxyzine to 50mg PO Q6HR PRN Start: Prazosin 1mg PO bedtime 11/07: Patient continues to report feeling anxious and depressed today; pt stated, I feel like my depression is becoming tolerable but my anxiety is high. I'm no longer feeling suicidal . denies SI/HI/VH/AH. Patient reports poor sleep but states he did not have nightmares last night. Added Seroquel 25mg PO BID PRN 11/08: Active on unit. social with select peers. listening to music with unit headphones. Pt reports mood has improved since admission; pt stated, I feel sad at times but it's better than when I came in . denies SI/HI/VH/AH. Patient continues to report poor sleep; states he is worried about having night terrors . DC Trazodone 100mg PO bedtime PRN Start: Seroquel 75mg PO bedtime 11/09: reports not falling asleep until 0500. no nightmares, though. agreeable to increase prazosin to 2 mg QHS for tonight. asking for incentive spirometer, which was ordered. Reason for continued inpatient stay Substantial Risk for: harm to self and rapid decompensation Time Spent With Patient Time: Total time managing care of this patient today __25__ minutes.
[2024-11-09] MEDS: guaiFENesin LA 600 MG TAB.ER.12H PO (16:49)
[2024-11-09 20:00] VITALS: BP 128/86; PULSE 94; RESP 16; TEMP 37.4; O2SAT 95
[2024-11-09 22:50] VITALS: BP 130/84; PULSE 88
[2024-11-09] MEDS: Mirtazapine 15 MG TABLET PO (22:54)
[2024-11-09] MEDS: Prazosin HCL 1 MG CAPSULE 2 MG PO (22:54)
[2024-11-09] MEDS: QUEtiapine Fumarate 25 MG TABLET 75 MG PO (22:54)
[2024-11-10 07:35] VITALS: BP 114/69; PULSE 97; RESP 16; TEMP 36.3; O2SAT 97
[2024-11-10] MEDS: Nicotine 21 MG PATCH.TD24 TRANSDERMA (08:58)
[2024-11-10] MEDS: Thiamine HCL 100 MG TABLET PO (09:00)
[2024-11-10] MEDS: buPROPion HCl XL 150 MG TAB.ER.24H PO (09:00)
[2024-11-10 09:03] VITALS: BP 120/65
[2024-11-10] MEDS: cloNIDine HCL 0.1 MG TABLET PO (09:03)
[2024-11-10] MEDS: hydrOXYzine HCL 50 MG TABLET PO (09:05)
--- NOTE | 2024-11-10 10:50 | P.PNPSI_ITS ---
Subjective Subjective Date of Service: 11/10/24 Reason For Visit: Crisis Subjective Notes: Conditional Voluntary Interim History: Active on unit, social with peers. attending groups. Pt reports he feels better emotionally but frustrated that he is unable to sleep through the night ; discussed medications. Increased: Wellbutrin XL to 300mg PO daily. Seroquel to 100mg PO bedtime DC Remeron Start: Melatonin 6mg PO bedtime Ambien 5mg PO bedtime Medication Compliance: Yes Side effects from medications: No Attending Groups: Yes Review of Systems Constitutional: Reports as per HPI Eyes: Reports as per HPI Reports as per HPI Cardiovascular: Reports as per HPI Respiratory: Reports as per HPI Gastrointestinal: Reports as per HPI Genitourinary: Reports as per HPI Musculoskeletal: Reports as per HPI Skin/Breast: Reports as per HPI Reports as per HPI Psychiatric: Reports as per HPI Endocrine: Reports as per HPI Hematologic/Lymphatic: Reports as per HPI Allergic/Immunologic: Reports as per HPI Mental Status Exam Mental Status Exam Narrative: Pt is alert and oriented; behavior is cooperative and calm; dressed in casual attire; mood is described as better ; eye contact appropriate; Speech is normal rate, volume and not pressured; thought process is organized and goal directed; Thought content is on tx; denies SI/HI/VH/AH. Diagnostics Vital Signs (24Hr): Vital Signs - 24 hr 11/09/24 20:00 11/09/24 22:50 11/10/24 07:35 Temperature 99.4 F 97.3 F Pulse Rate 94 88 97 Respiratory Rate 16 16 Blood Pressure 128/86 130/84 114/69 Pulse Oximetry 95 97 Oxygen Delivery Method Room Air Room Air 11/10/24 09:03 Temperature Pulse Rate Respiratory Rate Blood Pressure 120/65 Pulse Oximetry Oxygen Delivery Method BMI result Body Mass Index 24.1 Labs 11/03/24 02:07 11/03/24 20:10 Medications Medications Current Medications Acetaminophen (Acetaminophen 325 Mg Tablet) 650 mg PO Q6H PRN PRN Reason: Headache/Pain Mild Scale (1-3) Last Admin: 11/06/24 17:18 Dose: 650 mg Al Hydroxide/Mg Hydroxide (Magnesium Hydrox/Alum Hydrox 30 Ml Oral.Susp) 30 ml PO Q6H PRN PRN Reason: Heartburn/Nausea Bupropion HCl (Bupropion Hcl Xl 300 Mg Tab.Er.24h) 300 mg PO DAILY AUTUMN Clonidine HCl (Clonidine Hcl 0.1 Mg Tablet) 0.1 mg PO BID PRN; Protocol PRN Reason: Anxiety Last Admin: 11/10/24 09:03 Dose: 0.1 mg Guaifenesin (Guaifenesin La 600 Mg Tab.Er.12h) 600 mg PO BID PRN PRN Reason: Cough Last Admin: 11/09/24 16:49 Dose: 600 mg Hydroxyzine HCl (Hydroxyzine Hcl 50 Mg Tablet) 50 mg PO Q6H PRN PRN Reason: Anxiety Last Admin: 11/10/24 09:05 Dose: 50 mg Ibuprofen (Ibuprofen 600 Mg Tablet) 600 mg PO Q8H PRN PRN Reason: Pain, Mild (Pain Scale 1-3) Last Admin: 11/09/24 20:57 Dose: 600 mg Magnesium Hydroxide (Milk Of Magnesia 30 Ml Oral.Susp) 30 ml PO DAILY PRN PRN Reason: Constipation Melatonin (Melatonin 3 Mg Tablet) 6 mg PO BEDTIME AUTUMN Nicotine (Nicotine 21 Mg Patch.Td24) 21 mg TRANSDERMA DAILY AUTUMN Last Admin: 11/10/24 08:58 Dose: 21 mg Nicotine Polacrilex (Nicotine Polacrilex 2 Mg Gum) 4 mg BUCCAL Q2H PRN PRN Reason: Nicotine Cravings Prazosin HCl (Prazosin Hcl 1 Mg Capsule) 2 mg PO BEDTIME AUTUMN; Protocol Last Admin: 11/09/24 22:54 Dose: 2 mg Quetiapine Fumarate (Quetiapine Fumarate 100 Mg Tablet) 100 mg PO BEDTIME AUTUMN Thiamine HCl (Thiamine Hcl 100 Mg Tablet) 100 mg PO DAILY AUTUMN Last Admin: 11/10/24 09:00 Dose: 100 mg Zolpidem Tartrate (Zolpidem Tartrate 5 Mg Tablet) 5 mg PO BEDTIME AUTUMN Allergies Allergies Allergy/AdvReac Type Severity Reaction Status Date / Time No Known Allergies Allergy Verified 11/03/24 01:56 Assessment & Plan Assessment & Plan (1) MDD (major depressive disorder), recurrent severe, without psychosis: Status: Acute Code(s): F33.2 - Major depressive disorder, recurrent severe without psychotic features (2) Alcohol use disorder: Status: Acute Code(s): F10.90 - Alcohol use, unspecified, uncomplicated (3) Rotator cuff tear arthropathy of left shoulder: Status: Acute Code(s): M75.102 - Unspecified rotator cuff tear or rupture of left shoulder, not specified as traumatic; M12.812 - Other specific arthropathies, not elsewhere classified, left shoulder (4) Fracture of shaft of fourth metacarpal bone of right hand: Status: Acute Code(s): S62.324A - Displaced fracture of shaft of fourth metacarpal bone, right hand, initial encounter for closed fracture Plan Patient is a 54-year-old male with history of depression, alcoholism who presents for worsening depression with SI to hang himself in the face of medical illness, out of work and homeless. Patient reports that his depression and drinking started 8 years ago when his beloved . He has never tried psychiatric medications. 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 Patient has been unable to work; he has been homeless and this past week, his hopelessness increased to the point where he started planning to hang himself. Instead he self presented. Denies any drug use other than alcohol; patient drinks 1 pt and several beers a day. Denies AVH; denies any history of manic type episodes. Permission/clinical reasoning: Patient reports no depression until his 8 years ago; since then he has remained depressed and embroiled in alcoholism and has never sought treatment of any kind. Seems that psychosocial stressors mounted to the point where he became suicidal. No history of self-harm prior. Patient very reluctant to try medications however agreed that it is time and agreed to trial of Wellbutrin, risks/side effects reviewed. Plan: CV Q 15 minute checks Ativan p.r.n. with CIWA; seems that this can be discontinued as he is not scoring much Start Wellbutrin XL 150 mg daily PRNs failed 11/06: Patient reports feeling anxious and depressed today; he reports suicidal ideation with plan to hang myself . denies HI/VH/AH. Patient reports poor sleep d/t nightmares; discussed starting prazosin; risks/benefits reviewed. Pt agreed to trial. Patient stated, he is hoping to get into a [place] [facility] facility after I leave here . Increase: Remeron to 15mg PO bedtime Hydroxyzine to 50mg PO Q6HR PRN Start: Prazosin 1mg PO bedtime 11/07: Patient continues to report feeling anxious and depressed today; pt stated, I feel like my depression is becoming tolerable but my anxiety is high. I'm no longer feeling suicidal . denies SI/HI/VH/AH. Patient reports poor sleep but states he did not have nightmares last night. Added Seroquel 25mg PO BID PRN 11/08: Active on unit. social with select peers. listening to music with unit headphones. Pt reports mood has improved since admission; pt stated, I feel sad at times but it's better than when I came in . denies SI/HI/VH/AH. Patient continues to report poor sleep; states he is worried about having night terrors . DC Trazodone 100mg PO bedtime PRN Start: Seroquel 75mg PO bedtime 11/09: reports not falling asleep until 0500. no nightmares, though. agreeable to increase prazosin to 2 mg QHS for tonight. asking for incentive spirometer, which was ordered. 11/10: Active on unit, social with peers. attending groups. Pt reports he feels better emotionally but frustrated that he is unable to sleep through the night ; discussed medications. Increased: Wellbutrin XL to 300mg PO daily. Seroquel to 100mg PO bedtime DC Remeron Start: Melatonin 6mg PO bedtime Ambien 5mg PO bedtime Patient educated on: diagnosis, medication risk/benefits and therapeutic strategies Reason for continued inpatient stay Substantial Risk for: med/psych decompensation Time Spent With Patient Time: Total time managing care of this patient today _20___ minutes.
[2024-11-10] MEDS: guaiFENesin LA 600 MG TAB.ER.12H PO (13:05)
[2024-11-10] MEDS: Ibuprofen 600 MG TABLET PO (13:08)
[2024-11-10 19:25] VITALS: BP 128/83; PULSE 88; TEMP 36.6; O2SAT 100
[2024-11-10 21:53] VITALS: BP 111/81
[2024-11-10] MEDS: Prazosin HCL 1 MG CAPSULE 2 MG PO (21:53)
[2024-11-10] MEDS: Zolpidem Tartrate 5 MG TABLET PO (21:53)
[2024-11-10] MEDS: Melatonin 3 MG TABLET 6 MG PO (21:53)
[2024-11-10] MEDS: QUEtiapine Fumarate 100 MG TABLET PO (21:53)
[2024-11-11 07:45] VITALS: BP 131/72; PULSE 85; RESP 16; TEMP 36.6; O2SAT 98
[2024-11-11] MEDS: buPROPion HCl XL 300 MG TAB.ER.24H PO (08:41)
[2024-11-11] MEDS: Thiamine HCL 100 MG TABLET PO (08:41)
[2024-11-11] MEDS: Nicotine 21 MG PATCH.TD24 TRANSDERMA (08:42)
[2024-11-11] MEDS: Ibuprofen 600 MG TABLET PO ×2 (09:00→20:17)
[2024-11-11] MEDS: guaiFENesin LA 600 MG TAB.ER.12H PO ×2 (09:01→20:22)
--- NOTE | 2024-11-11 11:45 | HO.PSYCHPN ---
Subjective Subjective Date of Service: 11/11/24 Reason For Visit: Crisis Subjective Notes: Conditional Voluntary Interim History: The nursing staff reported the patient had been feeling better, he was seen in the common areas watching TV and socializing pleasant cooperative. He slept 8 hours. On interview the patient reported that he is feeling much better this is the 1st time in several days that he has slept very good. He is scheduled to be discharged on Wednesday. Mental Status Exam Mental Status Exam Patient Appearance: Appropriate Patient Orientation: Person and Situation Level of Consciousness: Awake and Appropriate Patient Behavior: Cooperative Mood Description: Calm Affect Description: Constricted Patient Cognition Impaired: Yes Ability to Follow Directions: Good Speech Pattern: Clear Hallucinations: None Delusions: Not Present Thought Process: Linear Thought Content: positive for Circumstantial Judgement: Fair Diagnostics Vital Signs (24Hr): Vital Signs - 24 hr 11/10/24 19:25 11/10/24 21:53 11/11/24 07:45 Temperature 97.9 F 97.8 F Pulse Rate 88 85 Respiratory Rate 16 Blood Pressure 128/83 111/81 131/72 Pulse Oximetry 100 98 Oxygen Delivery Method Room Air Room Air BMI result Body Mass Index 24.1 Labs 11/03/24 02:07 11/03/24 20:10 Medications Medications Current Medications Acetaminophen (Acetaminophen 325 Mg Tablet) 650 mg PO Q6H PRN PRN Reason: Headache/Pain Mild Scale (1-3) Last Admin: 11/06/24 17:18 Dose: 650 mg Al Hydroxide/Mg Hydroxide (Magnesium Hydrox/Alum Hydrox 30 Ml Oral.Susp) 30 ml PO Q6H PRN PRN Reason: Heartburn/Nausea Bupropion HCl (Bupropion Hcl Xl 300 Mg Tab.Er.24h) 300 mg PO DAILY AUTUMN Last Admin: 11/11/24 08:41 Dose: 300 mg Clonidine HCl (Clonidine Hcl 0.1 Mg Tablet) 0.1 mg PO BID PRN; Protocol PRN Reason: Anxiety Last Admin: 11/10/24 09:03 Dose: 0.1 mg Guaifenesin (Guaifenesin La 600 Mg Tab.Er.12h) 600 mg PO BID PRN PRN Reason: Cough Last Admin: 11/11/24 09:01 Dose: 600 mg Hydroxyzine HCl (Hydroxyzine Hcl 50 Mg Tablet) 50 mg PO Q6H PRN PRN Reason: Anxiety Last Admin: 11/10/24 09:05 Dose: 50 mg Ibuprofen (Ibuprofen 600 Mg Tablet) 600 mg PO Q8H PRN PRN Reason: Pain, Mild (Pain Scale 1-3) Last Admin: 11/11/24 09:00 Dose: 600 mg Magnesium Hydroxide (Milk Of Magnesia 30 Ml Oral.Susp) 30 ml PO DAILY PRN PRN Reason: Constipation Melatonin (Melatonin 3 Mg Tablet) 6 mg PO BEDTIME [facility] Last Admin: 11/10/24 21:53 Dose: 6 mg Nicotine (Nicotine 21 Mg Patch.Td24) 21 mg TRANSDERMA DAILY [facility] Last Admin: 11/11/24 08:42 Dose: 21 mg Nicotine Polacrilex (Nicotine Polacrilex 2 Mg Gum) 4 mg BUCCAL Q2H PRN PRN Reason: Nicotine Cravings Prazosin HCl (Prazosin Hcl 1 Mg Capsule) 2 mg PO BEDTIME [facility]; Protocol Last Admin: 11/10/24 21:53 Dose: 2 mg Quetiapine Fumarate (Quetiapine Fumarate 100 Mg Tablet) 100 mg PO BEDTIME [facility] Last Admin: 11/10/24 21:53 Dose: 100 mg Thiamine HCl (Thiamine Hcl 100 Mg Tablet) 100 mg PO DAILY [facility] Last Admin: 11/11/24 08:41 Dose: 100 mg Zolpidem Tartrate (Zolpidem Tartrate 5 Mg Tablet) 5 mg PO BEDTIME [facility] Last Admin: 11/10/24 21:53 Dose: 5 mg Allergies Allergies Allergy/AdvReac Type Severity Reaction Status Date / Time No Known Allergies Allergy Verified 11/03/24 01:56 Assessment & Plan Assessment & Plan (1) MDD (major depressive disorder), recurrent severe, without psychosis: Status: Acute Code(s): F33.2 - Major depressive disorder, recurrent severe without psychotic features (2) Alcohol use disorder: Status: Acute Code(s): F10.90 - Alcohol use, unspecified, uncomplicated (3) Rotator cuff tear arthropathy of left shoulder: Status: Acute Code(s): M75.102 - Unspecified rotator cuff tear or rupture of left shoulder, not specified as traumatic; M12.812 - Other specific arthropathies, not elsewhere classified, left shoulder (4) Fracture of shaft of fourth metacarpal bone of right hand: Status: Acute Code(s): S62.324A - Displaced fracture of shaft of fourth metacarpal bone, right hand, initial encounter for closed fracture Plan Patient is a 54-year-old male with history of depression, alcoholism who presents for worsening depression with SI to hang himself in the face of medical illness, out of work and homeless. Patient reports that his depression and drinking started 8 years ago when his beloved . He has never tried psychiatric medications. 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 Patient has been unable to work; he has been homeless and this past week, his hopelessness increased to the point where he started planning to hang himself. Instead he self presented. Denies any drug use other than alcohol; patient drinks 1 pt and several beers a day. Denies AVH; denies any history of manic type episodes. Permission/clinical reasoning: Patient reports no depression until his 8 years ago; since then he has remained depressed and embroiled in alcoholism and has never sought treatment of any kind. Seems that psychosocial stressors mounted to the point where he became suicidal. No history of self-harm prior. Patient very reluctant to try medications however agreed that it is time and agreed to trial of Wellbutrin, risks/side effects reviewed. Plan: CV Q 15 minute checks Ativan p.r.n. with CIWA; seems that this can be discontinued as he is not scoring much Start Wellbutrin XL 150 mg daily PRNs failed 11/06: Patient reports feeling anxious and depressed today; he reports suicidal ideation with plan to hang myself . denies HI/VH/AH. Patient reports poor sleep d/t nightmares; discussed starting prazosin; risks/benefits reviewed. Pt agreed to trial. Patient stated, he is hoping to get into a snf after I leave here . Increase: Remeron to 15mg PO bedtime Hydroxyzine to 50mg PO Q6HR PRN Start: Prazosin 1mg PO bedtime 11/07: Patient continues to report feeling anxious and depressed today; pt stated, I feel like my depression is becoming tolerable but my anxiety is high. I'm no longer feeling suicidal . denies SI/HI/VH/AH. Patient reports poor sleep but states he did not have nightmares last night. Added Seroquel 25mg PO BID PRN 11/08: Active on unit. social with select peers. listening to music with unit headphones. Pt reports mood has improved since admission; pt stated, I feel sad at times but it's better than when I came in . denies SI/HI/VH/AH. Patient continues to report poor sleep; states he is worried about having night terrors . DC Trazodone 100mg PO bedtime PRN Start: Seroquel 75mg PO bedtime 11/09: reports not falling asleep until 0500. no nightmares, though. agreeable to increase prazosin to 2 mg QHS for tonight. asking for incentive spirometer, which was ordered. 11/10: Active on unit, social with peers. attending groups. Pt reports he feels better emotionally but frustrated that he is unable to sleep through the night ; discussed medications. Increased: Wellbutrin XL to 300mg PO daily. Seroquel to 100mg PO bedtime DC Remeron Start: Melatonin 6mg PO bedtime Ambien 5mg PO bedtime 11/11 keep same treatment Reason for continued inpatient stay Substantial Risk for: inability to function, rapid decompensation and med/psych decompensation Time Spent With Patient Time: Total time managing care of this patient today __20__ minutes.
[2024-11-11 20:00] VITALS: BP 136/84; PULSE 93; RESP 18; TEMP 36.8; O2SAT 97
[2024-11-11] MEDS: QUEtiapine Fumarate 100 MG TABLET PO (21:57)
[2024-11-11 21:58] VITALS: BP 136/95
[2024-11-11] MEDS: Prazosin HCL 1 MG CAPSULE 2 MG PO (21:58)
[2024-11-11] MEDS: Melatonin 3 MG TABLET 6 MG PO (21:58)
[2024-11-11] MEDS: Zolpidem Tartrate 5 MG TABLET PO (21:58)
[2024-11-12 07:33] VITALS: BP 105/68; PULSE 80; RESP 18; TEMP 37.1; O2SAT 96
[2024-11-12] MEDS: Thiamine HCL 100 MG TABLET PO (09:20)
[2024-11-12] MEDS: Ibuprofen 600 MG TABLET PO (09:20)
[2024-11-12] MEDS: guaiFENesin LA 600 MG TAB.ER.12H PO ×2 (09:20→21:00)
[2024-11-12] MEDS: buPROPion HCl XL 300 MG TAB.ER.24H PO (09:20)
[2024-11-12] MEDS: Nicotine 21 MG PATCH.TD24 TRANSDERMA (09:22)
[2024-11-12 11:03] LABS: COVID-19 Test Negative (Negative); IDNOW Serial# 58CA691E
--- NOTE | 2024-11-12 13:29 | P.PNPSI_ITS ---
Subjective Subjective Date of Service: 11/12/24 Reason For Visit: Crisis Subjective Notes: Conditional Voluntary Interim History: The nursing staff reported the patient has a brighter affect, eating his meals, ready for discharge to respite. On interview the patient denies new symptoms content with current treatment. He was attending to groups and socializing assertively. Mental Status Exam Mental Status Exam Patient Appearance: Appropriate Patient Orientation: Person and Situation Level of Consciousness: Awake and Appropriate Patient Behavior: Guarded and Passive Mood Description: Calm Affect Description: Constricted Patient Cognition Impaired: Yes Ability to Follow Directions: Good Speech Pattern: Clear Hallucinations: None Delusions: Not Present Thought Process: Distracted and Slowed Thinking Thought Content: positive for [place] and positive for Circumstantial Judgement: Fair Diagnostics Vital Signs (24Hr): Vital Signs - 24 hr 11/11/24 20:00 11/11/24 21:58 11/12/24 07:33 Temperature 98.2 F 98.7 F Pulse Rate 93 80 Respiratory Rate 18 18 Blood Pressure 136/84 136/95 H 105/68 Pulse Oximetry 97 96 Oxygen Delivery Method Room Air Room Air BMI result Body Mass Index 24.1 Labs 11/03/24 02:07 11/03/24 20:10 Labs: Laboratory Results - last 48 hr 11/12/24 10:30 COVID-19 ([facility]) Negative COVID-19 Clin Com See Note Medications Medications Current Medications Acetaminophen (Acetaminophen 325 Mg Tablet) 650 mg PO Q6H PRN PRN Reason: Headache/Pain Mild Scale (1-3) Last Admin: 11/06/24 17:18 Dose: 650 mg Al Hydroxide/Mg Hydroxide (Magnesium Hydrox/Alum Hydrox 30 Ml Oral.Susp) 30 ml PO Q6H PRN PRN Reason: Heartburn/Nausea Bupropion HCl (Bupropion Hcl Xl 300 Mg Tab.Er.24h) 300 mg PO DAILY AUTUMN Last Admin: 11/12/24 09:20 Dose: 300 mg Clonidine HCl (Clonidine Hcl 0.1 Mg Tablet) 0.1 mg PO BID PRN; Protocol PRN Reason: Anxiety Last Admin: 11/10/24 09:03 Dose: 0.1 mg Guaifenesin (Guaifenesin La 600 Mg Tab.Er.12h) 600 mg PO BID PRN PRN Reason: Cough Last Admin: 11/12/24 09:20 Dose: 600 mg Hydroxyzine HCl (Hydroxyzine Hcl 50 Mg Tablet) 50 mg PO Q6H PRN PRN Reason: Anxiety Last Admin: 11/10/24 09:05 Dose: 50 mg Ibuprofen (Ibuprofen 600 Mg Tablet) 600 mg PO Q8H PRN PRN Reason: Pain, Mild (Pain Scale 1-3) Last Admin: 11/12/24 09:20 Dose: 600 mg Magnesium Hydroxide (Milk Of Magnesia 30 Ml Oral.Susp) 30 ml PO DAILY PRN PRN Reason: Constipation Melatonin (Melatonin 3 Mg Tablet) 6 mg PO BEDTIME [facility] Last Admin: 11/11/24 21:58 Dose: 6 mg Nicotine (Nicotine 21 Mg Patch.Td24) 21 mg TRANSDERMA DAILY [facility] Last Admin: 11/12/24 09:22 Dose: 21 mg Nicotine Polacrilex (Nicotine Polacrilex 2 Mg Gum) 4 mg BUCCAL Q2H PRN PRN Reason: Nicotine Cravings Prazosin HCl (Prazosin Hcl 1 Mg Capsule) 2 mg PO BEDTIME [facility]; Protocol Last Admin: 11/11/24 21:58 Dose: 2 mg Quetiapine Fumarate (Quetiapine Fumarate 100 Mg Tablet) 100 mg PO BEDTIME [facility] Last Admin: 11/11/24 21:57 Dose: 100 mg Thiamine HCl (Thiamine Hcl 100 Mg Tablet) 100 mg PO DAILY [facility] Last Admin: 11/12/24 09:20 Dose: 100 mg Zolpidem Tartrate (Zolpidem Tartrate 5 Mg Tablet) 5 mg PO BEDTIME [facility] Last Admin: 11/11/24 21:58 Dose: 5 mg Allergies Allergies Allergy/AdvReac Type Severity Reaction Status Date / Time No Known Allergies Allergy Verified 11/03/24 01:56 Assessment & Plan Assessment & Plan (1) MDD (major depressive disorder), recurrent severe, without psychosis: Status: Acute Code(s): F33.2 - Major depressive disorder, recurrent severe without psychotic features (2) Alcohol use disorder: Status: Acute Code(s): F10.90 - Alcohol use, unspecified, uncomplicated (3) Rotator cuff tear arthropathy of left shoulder: Status: Acute Code(s): M75.102 - Unspecified rotator cuff tear or rupture of left shoulder, not specified as traumatic; M12.812 - Other specific arthropathies, not elsewhere classified, left shoulder (4) Fracture of shaft of fourth metacarpal bone of right hand: Status: Acute Code(s): S62.324A - Displaced fracture of shaft of fourth metacarpal bone, right hand, initial encounter for closed fracture Plan Patient is a 54-year-old male with history of depression, alcoholism who presents for worsening depression with SI to hang himself in the face of medical illness, out of work and homeless. Patient reports that his depression and drinking started 8 years ago when his beloved . He has never tried psychiatric medications. 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 Patient has been unable to work; he has been homeless and this past week, his hopelessness increased to the point where he started planning to hang himself. Instead he self presented. Denies any drug use other than alcohol; patient drinks 1 pt and several beers a day. Denies AVH; denies any history of manic type episodes. Permission/clinical reasoning: Patient reports no depression until his 8 years ago; since then he has remained depressed and embroiled in alcoholism and has never sought treatment of any kind. Seems that psychosocial stressors mounted to the point where he became suicidal. No history of self-harm prior. Patient very reluctant to try medications however agreed that it is time and agreed to trial of Wellbutrin, risks/side effects reviewed. Plan: CV Q 15 minute checks Ativan p.r.n. with CIWA; seems that this can be discontinued as he is not scoring much Start Wellbutrin XL 150 mg daily PRNs failed 11/06: Patient reports feeling anxious and depressed today; he reports suicidal ideation with plan to hang myself . denies HI/VH/AH. Patient reports poor sleep d/t nightmares; discussed starting prazosin; risks/benefits reviewed. Pt agreed to trial. Patient stated, he is hoping to get into a nursing home after I leave here . Increase: Remeron to 15mg PO bedtime Hydroxyzine to 50mg PO Q6HR PRN Start: Prazosin 1mg PO bedtime 11/07: Patient continues to report feeling anxious and depressed today; pt stated, I feel like my depression is becoming tolerable but my anxiety is high. I'm no longer feeling suicidal . denies SI/HI/VH/AH. Patient reports poor sleep but states he did not have nightmares last night. Added Seroquel 25mg PO BID PRN 11/08: Active on unit. social with select peers. listening to music with unit headphones. Pt reports mood has improved since admission; pt stated, I feel sad at times but it's better than when I came in . denies SI/HI/VH/AH. Patient continues to report poor sleep; states he is worried about having night terrors . DC Trazodone 100mg PO bedtime PRN Start: Seroquel 75mg PO bedtime 11/09: reports not falling asleep until 0500. no nightmares, though. agreeable to increase prazosin to 2 mg QHS for tonight. asking for incentive spirometer, which was ordered. 11/10: Active on unit, social with peers. attending groups. Pt reports he feels better emotionally but frustrated that he is unable to sleep through the night ; discussed medications. Increased: Wellbutrin XL to 300mg PO daily. Seroquel to 100mg PO bedtime DC Remeron Start: Melatonin 6mg PO bedtime Ambien 5mg PO bedtime 11/11 keep same treatment 11/12 keep same treatment Reason for continued inpatient stay Substantial Risk for: inability to function, rapid decompensation and med/psych decompensation Time Spent With Patient Time: Total time managing care of this patient today ___20_ minutes.
[2024-11-12 19:50] VITALS: BP 153/96; PULSE 97; RESP 16; TEMP 37.1; O2SAT 98
[2024-11-12] MEDS: Acetaminophen 325 MG TABLET 650 MG PO (20:58)
[2024-11-12 22:56] VITALS: BP 157/103
[2024-11-12] MEDS: QUEtiapine Fumarate 100 MG TABLET PO (22:56)
[2024-11-12] MEDS: Melatonin 3 MG TABLET 6 MG PO (22:56)
[2024-11-12] MEDS: Prazosin HCL 1 MG CAPSULE 2 MG PO (22:56)
[2024-11-12] MEDS: Zolpidem Tartrate 5 MG TABLET PO (22:57)
[2024-11-13 08:05] VITALS: BP 119/80; PULSE 90; RESP 14; TEMP 36.6; O2SAT 98
[2024-11-13] MEDS: buPROPion HCl XL 300 MG TAB.ER.24H PO (08:40)
[2024-11-13] MEDS: Thiamine HCL 100 MG TABLET PO (08:40)
[2024-11-13] MEDS: Nicotine 21 MG PATCH.TD24 TRANSDERMA (08:41)
[2024-11-13] MEDS: guaiFENesin LA 600 MG TAB.ER.12H PO (08:58)
--- NOTE | 2024-11-13 09:33 | P.DS_ITS ---
DS: Providers Provider Date of Service: 11/13/24 Date of admission: 11/03/24 12:09 Date of discharge: 11/13/24 Primary care physician: Ramon Chow DO Attending physician on admission: Carlos Pan Consults: 11/03/24 19:34 Addiction Medicine Routine Consulting Provider: Addiction Covering Reason for consultation: positive audit C Attending physician on discharge: Carlos Pan Discharging clinician: Valerie Neff DS: Diagnosis Discharge Diagnosis (1) MDD (major depressive disorder), recurrent severe, without psychosis: Status: Acute (2) Alcohol use disorder: Status: Acute (3) Rotator cuff tear arthropathy of left shoulder: Status: Acute (4) Fracture of shaft of fourth metacarpal bone of right hand: Status: Acute DS: Medications Discharge Medications Home Medications: Home Medications ?Medication ?Instructions ?Recorded ?Confirmed No Known Home Meds 11/03/24 11/03/24 Previous Rx's ?Medication ?Instructions ?Recorded bupropion HCl 300 mg 24 hr tablet, 300 mg PO DAILY 30 days #30 tabs 11/13/24 extended release melatonin 5 mg tablet 5 mg PO BEDTIME 30 days #30 tabs 11/13/24 prazosin 2 mg capsule 2 mg PO BEDTIME 30 days #30 caps 11/13/24 quetiapine 100 mg tablet 100 mg PO BEDTIME 30 days #30 tabs 11/13/24 thiamine mononitrate (vit B1) 100 100 mg PO DAILY 30 days #30 tabs 11/13/24 mg tablet zolpidem 5 mg tablet 5 mg PO BEDTIME 7 days #7 tabs 11/13/24 Mental Status Exam Mental Status Exam Narrative: Pt is alert and oriented; behavior is cooperative and calm; dressed in casual attire; mood is described as good ; eye contact appropriate; Speech is normal rate, volume and not pressured; thought process is organized and goal directed; Thought content is on tx; denies SI/HI/VH/AH. Data Data Completed and Pending Completed studies during hospitalization [Text1]: 11/12/24 10:30 COVID-19 (JOSEPH) Negative COVID-19 Clin Com See Note DS: Summary Hospital Course Hospital Course: Patient is a 54-year-old male with history of depression, alcoholism who p resents for worsening depression with SI to hang himself in the face of medical illness, out of work and homeless. Patient reports that his depression and drinking started 8 years ago when his beloved . He has never tried psychiatric medications. 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 Patient has been unable to work; he has been homeless and this past week, his hopelessness increased to the point where he started planning to hang himself. Instead he self presented. Denies any drug use other than alcohol; patient drinks 1 pt and several beers a day. Denies AVH; denies any history of manic type episodes. Patient is a 54-year-old male with history of depression, alcoholism who presents for worsening depression with SI to hang himself in the face of medical illness, out of work and homeless. Patient reports that his depression and drinking started 8 years ago when his beloved . He has never tried psychiatric medications. 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 Patient has been unable to work; he has been homeless and this past week, his hopelessness increased to the point where he started planning to hang himself. Instead he self presented. Denies any drug use other than alcohol; patient drinks 1 pt and several beers a day. Denies AVH; denies any history of manic type episodes. Permission/clinical reasoning: Patient reports no depression until his 8 years ago; since then he has remained depressed and embroiled in alcoholism and has never sought treatment of any kind. Seems that psychosocial stressors mounted to the point where he became suicidal. No history of self-harm prior. Patient very reluctant to try medications however agreed that it is time and agreed to trial of Wellbutrin, risks/side effects reviewed. Plan: CV Q 15 minute checks Ativan p.r.n. with CIWA; seems that this can be discontinued as he is not scoring much Start Wellbutrin XL 150 mg daily PRNs failed Patient reports feeling anxious and depressed today; he reports suicidal ideation with plan to hang myself . denies HI/VH/AH. Patient reports poor sleep d/t nightmares; discussed starting prazosin; risks/benefits reviewed. Pt agreed to trial. Patient stated, he is hoping to get into a snf after I leave here . Increase: Remeron to 15mg PO bedtime Hydroxyzine to 50mg PO Q6HR PRN Start: Prazosin 1mg PO bedtime Patient continues to report feeling anxious and depressed today; pt stated, I feel like my depression is becoming tolerable but my anxiety is high. I'm no longer feeling suicidal . denies SI/HI/VH/AH. Patient reports poor sleep but states he did not have nightmares last night. Added Seroquel 25mg PO BID PRN Active on unit. social with select peers. listening to music with unit headphones. Pt reports mood has improved since admission; pt stated, I feel sad at times but it's better than when I came in . denies SI/HI/VH/AH. Patient continues to report poor sleep; states he is worried about having night terr ors . DC Trazodone 100mg PO bedtime PRN Start: Seroquel 75mg PO bedtime reports not falling asleep until 0500. no nightmares, though. agreeable to increase prazosin to 2 mg QHS for tonight. asking for incentive spirometer, which was ordered. Active on unit, social with peers. attending groups. Pt reports he feels better emotionally but frustrated that he is unable to sleep through the night ; discussed medications. Increased: Wellbutrin XL to 300mg PO daily. Seroquel to 100mg PO bedtime DC Remeron Start: Melatonin 6mg PO bedtime Ambien 5mg PO bedtime Patient reports sleeping well. He reports feeling good and ready to leave ; pt reports he plans on following up with outpatient providers. denies SI/HI/VH/AH. Status at Discharge Cognitive/behavioral status at discharge: Patient has insight and demonstrates good judgment in terms of wanting to pursue treatment. Patient is not in imminent risk of harm to self or others and has a safety plan that includes presenting to the closest ER or calling 911 if feeling unsafe. Functional status at discharge: independent ambulation Overall status at discharge: patient is back to baseline Time Spent with Patient Time attestation: Total time managing care of this patient today _20___ minutes. Time spent: Less than 30 minutes Discharge Plan Discharge Anticipated Discharge Date/Time: 11/13/24 11:30 Patient Disposition: Home, Self-Care Discharge Diagnosis: MDD, Alcohol use d/o Referrals: Ramon Chow DO [Primary Care Provider] - 1 Week (11-09-24 Dr. Chow retired at the end of September 2024. The new provider does not show you as a patient. Please contact your new primary care physician to schedule a follow up appt for 7-10 days after discharge.) Discharge Medications: New thiamine mononitrate (vit B1) 100 mg Tablet 100 mg PO DAILY 30 Days Qty: 30 0RF melatonin 5 mg capsule 5 mg PO BEDTIME 30 Days Qty: 30 0RF zolpidem 5 mg Tablet 5 mg PO BEDTIME 7 Days Qty: 7 3RF quetiapine 100 mg Tablet 100 mg PO BEDTIME 30 Days Qty: 30 0RF bupropion HCl 300 mg Tablet Extended Release 24 Hr 300 mg PO DAILY 30 Days Qty: 30 0RF prazosin 2 mg capsule 2 mg PO BEDTIME 30 Days Qty: 30 0RF nicotine 14 mg/24 hr patch 24 hour 1 patch transdermal DAILY 30 Days Qty: 28 0RF hydroxyzine HCl 25 mg tablet 25 mg PO BID PRN (Reason: anxiety) 30 Days Qty: 60 0RF Discharge Orders: Discharge Order (Routine); Ordered 11/13/24 Ordered By: Valerie Neff Diet: Regular diet Activity on Discharge: As tolerated Stand Alone Forms: Patient Portal Discharge page Print Language: Malay Care Plan Goals: Maintain mood and safe behaviors Take medications as prescribed Continue to pursue sobriety Practice coping skills Continue with outpatient providers and reach out to them as needed Health Concerns: Mood stability and behaviors Sobriety Plan of Treatment: Follow up with your PCP, psychiatric provider and other outpatient providers regarding above concerns Take medications as prescribed Assessment: Patient has insight and demonstrates good judgment in terms of wanting to pursue treatment. Patient is not in imminent risk of harm to self or others and has a safety plan that includes presenting to the closest ER or calling 911 if feeling unsafe. Discharge Date/Time: 11/13/24 11:00
== END 2024-11-13 11:00 | disposition home or self-care (01) | DRG 751 ==
LOC: HO.ED 03:19 → HO.PADLT16 13:27
PROVIDERS: Admitting Provider Registered Nurse; Emergency Provider Emergency Medicine; PCP Internal Medicine; Responsible Provider Registered Nurse; Visit Provider Psychiatry & Neurology Psychiatry
DX: F33.2 Major depressive disorder, recurrent severe without psychotic features (principal); R45.851 Suicidal ideations; F17.210 Nicotine dependence, cigarettes, uncomplicated; Z59.02 Unsheltered homelessness; Z71.6 Tobacco abuse counseling; Z20.822 Contact with and (suspected) exposure to COVID-19; Y90.6 Blood alcohol level of 120-199 mg/100 ml; F10.20 Alcohol dependence, uncomplicated; Z56.0 Unemployment, unspecified; Z63.4 Disappearance and death of family member; M75.102 Unspecified rotator cuff tear or rupture of left shoulder, not specified as traumatic; S62.324A Displaced fracture of shaft of fourth metacarpal bone, right hand, initial encounter for closed fracture; Y93.H3 Activity, building and construction; X58.XXXA Exposure to other specified factors, initial encounter; Y99.0 Civilian activity done for income or pay; Z79.899 Other long term (current) drug therapy
CPT/HCPCS: 36415; 80053; 80061; 80307; 81003; 83690; 85025; 87635; 93005; 99285

== ENCOUNTER → 2024-11-03 09:38 | Outpatient (BNV) | payer MEDICAID, SELFPAY | PROVIDERS: Admitting Provider Registered Nurse; Emergency Provider Emergency Medicine; PCP Internal Medicine; Visit Provider Internal Medicine | DX: R94.31 Abnormal electrocardiogram [ECG] [EKG] (principal) | CPT/HCPCS: 93010 ==

== ENCOUNTER → 2024-11-03 12:09 | Outpatient (BNV) | payer OTHER, SELFPAY | PROVIDERS: Admitting Provider Registered Nurse; Emergency Provider Emergency Medicine; PCP Internal Medicine; Visit Provider Psychiatry & Neurology Psychiatry | DX: F33.2 Major depressive disorder, recurrent severe without psychotic features (principal); F10.90 Alcohol use, unspecified, uncomplicated; M75.102 Unspecified rotator cuff tear or rupture of left shoulder, not specified as traumatic; M12.812 Other specific arthropathies, not elsewhere classified, left shoulder; S62.324A Displaced fracture of shaft of fourth metacarpal bone, right hand, initial encounter for closed fracture | CPT/HCPCS: 99232 ==

== ENCOUNTER 2024-11-27 16:24 | Emergency (ER) | payer OTHER, SELFPAY ==
--- NOTE | ~2024-11-27 | XR_ITS ---
CLINICAL HISTORY: pain, injury 5 view right hand Comparison: None Findings: Predominately oblique fracture line present concerning for acute, persisting, or recurrent fracture of the 4th metacarpal with mild adjacent periosteal bone formation. No bony bridging callus as of yet. No displaced carpal fracture. No dislocation. Soft tissue swelling including adjacent to 4th and 5th metacarpals. No radiopaque retained foreign body. IMPRESSION: 1. Subacute oblique fracture of the 4th metacarpal diaphysis with adjacent periosteal bone formation and calcifications. 2. Mild osteoarthritis including wrist. This document has been electronically signed by: Carlos Ly MD on 11/27/2024 19:03:52
--- NOTE | ~2024-11-27 | XR_ITS ---
CLINICAL HISTORY: pain, injury 4 view right shoulder Comparison: None Findings: Moderate osteoarthritis of the right AC joint. Mild osteoarthritis of the glenohumeral joint. 0.3 cm calcification adjacent to greater tuberosity is likely related to calcific tendinitis of the supraspinatus. Small avulsion fragment considered less likely. No dislocation. Mild atelectasis in the [id number]. IMPRESSION: 1. Small calcification adjacent to greater tuberosity is likely due to calcific tendinitis of the rotator cuff. 2. No dislocation. 3. Degenerative changes include imaged AC joint. This document has been electronically signed by: Carlos Ly MD on 11/27/2024 19:03:36
--- NOTE | ~2024-11-27 | XR_ITS ---
CLINICAL HISTORY: pain, injury 4 view left hand, in 4 view left wrist Comparison: None Findings: No displaced fracture. No dislocations. Mild osteoarthritis. Soft tissue swelling is nonspecific including hypothenar region. No erosions. No radiopaque retained foreign body. IMPRESSION: No acute fracture or dislocation. This document has been electronically signed by: Carlos Ly MD on 11/27/2024 19:19:14
--- NOTE | ~2024-11-27 | XR_ITS ---
CLINICAL HISTORY: pain, injury 1 view pelvis Comparison: None Findings: Mild-moderate osteoarthritis of the of the left hip and moderate osteoarthritis of the right hip.. No displaced fracture. No dislocation. Sacrum and SI joints are mostly obscured. Degenerative changes include the imaged spine. Vascular calcifications present, including phleboliths. IMPRESSION: 1. Osteoarthritis of both hips, right worse than left. 2. No acute fracture or dislocation of the imaged pelvis. This document has been electronically signed by: Carlos Ly MD on 11/27/2024 19:04:13
--- NOTE | ~2024-11-27 | CT_ITS ---
CLINICAL HISTORY: slip and fall, pain CT head without contrast Comparison: None available. 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 No acute intracranial hemorrhage. No midline shift or hydrocephalus. Mild volume loss is generalized. Bilateral nasal bone fractures appear old. No acute skull fracture. Fluid and mucosal thickening of the paranasal sinuses are multifocal with near-complete opacification of the sphenoid sinus. Trace left mastoid effusion. IMPRESSION: 1. No acute intracranial hemorrhage or acute skull fracture. 2. Small old left VELVET CUTTER branch infarction. This document has been electronically signed by: Carlos Ly MD on 11/27/2024 20:56:04
--- NOTE | ~2024-11-27 | CT_ITS ---
CLINICAL HISTORY: slip and fall, pain CT cervical spine without contrast Comparison: None Findings: No acute fracture of the cervical spine. 0.3 cm retrolisthesis of the C3-C4. 0.5 cm anterolisthesis at C4-C5. Disc osteophyte complexes with mild spinal canal stenosis including C5-C6 and C6-C7. Multifocal foraminal narrowing is moderate to severe by CT. Osteophytes sclerosis of the ligament calcifications are multifocal. Facet arthropathy is multifocal, left worse than right. Scarring and emphysematous changes of the partially imaged lung apices. No paraspinal hematoma. Vascular calcifications present. IMPRESSION: 1. No acute fracture of the cervical spine. 2. Anterolisthesis of the C4-C5. This document has been electronically signed by: Carlos Ly MD on 11/27/2024 20:35:21
[2024-11-27 16:52] VITALS: BP 145/103; PULSE 92; RESP 18; TEMP 36.7; O2SAT 96; BMI 25.2
--- NOTE | 2024-11-27 16:52 | ED_ITS ---
HPI - General Adult General Chief complaint: General Medical Stated complaint: fell 2x last night rotator cuffs hurt?/med check Time Seen by Provider: 11/27/24 21:49 Source: patient Mode of arrival: ambulatory Limitations: no limitations History of Present Illness ED Provider: Dr. Vivian Sanford HPI narrative: Patient comes to the emergency room complaining of a fall that he sustained yesterday, complaining of multiple contusions. Patient denies losing consciousness, denies being on any blood thinners. Also, patient states that he has been very depressed despite taking his medications as prescribed, states that he has ringing in the ears since he started his new medications about 3 weeks ago. Patient requesting a care team consult and possible review of medications. Patient denies SI or HI Related Data Previous Rx's ?Medication ?Instructions ?Recorded bupropion HCl 300 mg 24 hr tablet, 300 mg PO DAILY 30 days #30 tabs 11/13/24 extended release hydroxyzine HCl 25 mg tablet 25 mg PO BID PRN anxiety 30 days 11/13/24 #60 tabs melatonin 5 mg capsule 5 mg PO BEDTIME 30 days #30 caps 11/13/24 nicotine 14 mg/24 hr daily 1 patch transdermal DAILY 30 days 11/13/24 transdermal patch #28 ea prazosin 2 mg capsule 2 mg PO BEDTIME 30 days #30 caps 11/13/24 quetiapine 100 mg tablet 100 mg PO BEDTIME 30 days #30 tabs 11/13/24 thiamine mononitrate (vit B1) 100 100 mg PO DAILY 30 days #30 tabs 11/13/24 mg tablet zolpidem 5 mg tablet 5 mg PO BEDTIME 7 days #7 tabs 11/13/24 Allergies Allergy/AdvReac Type Severity Reaction Status Date / Time No Known Allergies Allergy Verified 11/27/24 16:56 Review of Systems 2 Review of Systems: Constitutional : No Weight loss, No Fever, No Chills, No Night Sweats, No Fatigue, No Malaise ENT/Mouth : No Hearing loss, No Ear Pain, No Nasal Congestion, No Sinus Pain, No Hoarseness, No sore throat, No Rhinorrhea, No Swallowing Difficulty Eyes: No Eye Pain, No Swelling, No Redness, No Foreign Body, No Discharge, No Vision Changes Cardiovascular : No Chest Pain, No SOB, No Dyspnea on Exertion, No Orthopnea, No Edema, No Palpitations Respiratory : No Cough, No Sputum, No Wheezing, No Smoke Exposure, No Dyspnea Gastrointestinal : No Nausea, No Vomiting, No Diarrhea, No Constipation, No abdominal Pain, No Hematochezia, No Melena Genitourinary : no irregular bleeding, No Dysuria, No Urinary Frequency, No Hematuria, No Urinary Incontinence, No Urgency, No Flank Pain, No Urinary Flow Changes, No Hesitancy Musculoskeletal : Complaining of bilateral hand pain, complaining of hip pain Skin : No Skin Lesions, No rash Neuro : No Weakness, No Numbness, No Paresthesias, No Loss of Consciousness, No Dizziness, No Headache Psych : No Anxiety/Panic, complaining of worsening depression, being angry all the time, denies SI or HI, complaining of psych medication side-effects Heme/Lymph: No Bruising, No Bleeding,No Lymphadenopathy Endocrine : No Polyuria, No Polydipsia, No Temperature Intolerance PMFSH Past Medical History Medical History Depression with suicidal ideation Fracture of shaft of fourth metacarpal bone of right hand Rotator cuff tear arthropathy of left shoulder Alcohol use disorder MDD (major depressive disorder), recurrent severe, without psychosis No known health problems Social History Social History Household Members: None Housing: Homeless Do you presently have visiting nurse or other home services: No Alcohol intake: current Alcohol intake frequency: holidays/special occasions only Alcohol type: beer Patient Tobacco Use Status: Current everyday Tobacco user Tobacco use type: Cigarette Cigarette Packs Per Day: 1 Cigarettes Per Day: 20.0 Second Hand Smoke Exposure: No Substance Use Type: Marijuana Advance Directives: No Advance Directives Information Provided: No Do you have a plan to hurt others: No Plan service: No Current occupational status: employed 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 Oriented X3. No acute distress. Eyes: Pupils equal, round and reactive to light. ENT: Pharynx normal. Neck: Normal inspection. Neck supple. No lymph nodes noted. No crepitus CVS: Normal heart rate and rhythm. Pulses normal. Normal S1 and S2 Respiratory: No respiratory distress. Breath sounds normal. No Wheezing. No rales Abdomen: Soft and nontender. No rigidity. No distention. Skin: Skin warm and dry. Normal skin color. Normal skin turgor. Extremities: No lower extremity edema. No Lacerations. No Rash, pain to palpation over the dorsum of the right hand, per patient at baseline for the last month, no ecchymosis, no skin breakage Neuro: Oriented X 3. No motor deficit. No sensory deficit. Moving all extremities. No slurred speech. CN 2 through 12 grossly intact Psych: calm, cooperative, normal affect Course Course Course Narrative: RME performed by Melinda Price PA-C. Patient is a 54 year old assigned male at presenting to the emergency department with bilateral hand and wrist pain after multiple slips and falls. Patient states that his right shoulder hurts. Patient states that he is not sure if he hit his head or not. Patient states that his pelvis is also sore. Patient also states that he feels like all of his psychiatric medications are off and he would like that addressed while he is here as well. Detailed physical exam and review of systems are deferred to the gasoline engine inspector. Imaging and labs ordered. Patient placed back in the waiting room pending room availability and results. Medical Decision Making Medical Decision Making [facility] Narrative: My interpretation of labs: No significant abnormality in patient's hematology chemistry or LFTs. Head CT, cervical spine CT, x-rays of the pelvis do not show any acute abnormality. Left hand within normal limits. Right hand shows a subacute oblique fracture of the 4th metacarpal. Patient states that he has already been seen by Dr. Ritchie from her surgery but a month ago, no new changes on x-rays from today. Patient opted for nonsurgical treatment a month ago when he was seen by Orthopedics. Patient is medically cleared to be seen by the care team Patient is not SI or HI, patient does not require a section 12. Urine toxicology and ethanol level spend Care team consult pending Physician observation started at 22:06 Differential Diagnosis Differential Diagnoses: The differential diagnosis associated with the presentation includes (Contusions, concussion, medication side-effect) Admission/Observation Consideration of admission/observation: Escalation of care including admission/observation considered (Patient waiting to be seen by the care team) Lab Data MDM Lab Attestation statement: I reviewed the patient's lab results. 11/27/24 17:08 11/27/24 17:08 Labs: Lab Results 11/27/24 Range/Units 17:08 WBC 13.7 H (4.8-10.8) X10*3/uL RBC 4.66 (4.60-5.80) X10*6/uL Hgb 16.2 (14.0-18.0) g/dl Hct 45.3 (42.0-52.0) % MCV 97.2 (80.0-98.0) fL MCH 34.8 H (27.0-33.0) pg MCHC 35.8 (31.0-36.0) g/dl RDW 12.3 (11.0-16.0) % Plt Count 279 (160-400) X10*3/uL MPV 9.1 L (9.4-12.4) fL Immature Gran % (Auto) 0.4 (0.0-0.4) % Neut % (Auto) 77.0 H (45-73) % Lymph % (Auto) 13.5 L (20-40) % Gonzales % (Auto) 6.6 (2-11) % Eos % (Auto) 2.0 (0-4) % Baso % (Auto) 0.5 (0-2) % Lymph # (Auto) 1.9 (1.2-4.9) X10*3/uL Gonzales # (Auto) 0.9 (0.1-1.2) X10*3/uL Eos # (Auto) 0.3 (0.0-0.4) X10*3/uL Baso # (Auto) 0.1 (0.0-0.2) X10*3/uL Abs Immat Gran (auto) 0.05 H (0.00-0.03) X10*3/uL Absolute Neuts (auto) 10.5 H (2.0-8.3) x10*3/uL Absolute Nucleated RBC 0.000 (0.0-0.012) X10*3/uL Nucleated RBC % (auto) 0.0 (0.0-0.2) /100WBC Sodium 138 (135-145) mmol/L Potassium 4.5 (3.3-5.1) mmol/L Chloride 105 (96-108) mmol/L Carbon Dioxide 27 (22-29) mmol/L Anion Gap 11 L (12-20) BUN 7 L (9-16) mg/dL Creatinine 0.70 (0.5-1.4) mg/dL Estim Creat Clear Calc 126.0 Estimated GFR > 60 Random Glucose 92 (60-115) mg/dL Calcium 9.2 (8.4-10.2) mg/dL Magnesium 2.1 (1.6-2.6) mg/dL Total Bilirubin 0.6 (0.0-1.0) mg/dL AST 22 (5-37) U/L ALT 24 (0-40) U/L Alkaline Phosphatase 72 (39-117) U/L Total Protein 7.3 (6.5-8.0) g/dL Albumin 4.2 (3.5-5.0) g/dL Independent Interpretation I performed an independent interpretation of an: Plain X-Ray and CT Scan Radiology Impression Discussion of test interpretation with radiology: I have reviewed the radiologist's reading. 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 No acute intracranial hemorrhage. No midline shift or hydrocephalus. Mild volume loss is generalized. Bilateral nasal bone fractures appear old. No acute skull fracture. Fluid and mucosal thickening of the paranasal sinuses are multifocal with near-complete opacification of the sphenoid sinus. Trace left mastoid effusion. 1. No acute fracture of the cervical spine. 2. Anterolisthesis of the C4-C5 1. Osteoarthritis of both hips, right worse than left. 2. No acute fracture or dislocation of the imaged pelvis. 1. Small calcification adjacent to greater tuberosity is likely due to calcific tendinitis of the rotator cuff. 2. No dislocation. 3. Degenerative changes include imaged AC joint 1. Subacute oblique fracture of the 4th metacarpal diaphysis with adjacent periosteal bone formation and calcifications. Critical Care Time Critical Care Time Critical Care Time: Yes Total Critical Care Time: 45 Attestation: I have personally provided critical care time. Time includes review of lab data, radiology results, discussion with consultants, and monitoring for potential decompensation. Intervention performed as documented. Discharge Plan Discharge Clinical Impression: Fall, Contusion, Medication side effects, Depression Patient Disposition: Still a Patient Prescriptions: No Action thiamine mononitrate (vit B1) 100 mg Tablet 100 mg PO DAILY 30 Days Qty: 30 0RF melatonin 5 mg capsule 5 mg PO BEDTIME 30 Days Qty: 30 0RF zolpidem 5 mg Tablet 5 mg PO BEDTIME 7 Days Qty: 7 3RF quetiapine 100 mg Tablet 100 mg PO BEDTIME 30 Days Qty: 30 0RF bupropion HCl 300 mg Tablet Extended Release 24 Hr 300 mg PO DAILY 30 Days Qty: 30 0RF prazosin 2 mg capsule 2 mg PO BEDTIME 30 Days Qty: 30 0RF nicotine 14 mg/24 hr patch 24 hour 1 patch transdermal DAILY 30 Days Qty: 28 0RF hydroxyzine HCl 25 mg tablet 25 mg PO BID PRN (Reason: anxiety) 30 Days Qty: 60 0RF Print Language: Slovenian
--- NOTE | 2024-11-27 16:55 | ECG_ITS ---
Test Reason : MEDICAL CLEARANCE Blood Pressure : */* mmHG Vent. Rate : 92 BPM Atrial Rate : * BPM P-R Int : * ms QRS Dur : 94 ms QT Int : 344 ms P-R-T Axes : * -28 32 degrees QTcB Int : 425 ms Normal sinus rhythm Incomplete right bundle branch block Normal ECG When compared with ECG of 03-Nov-2024 09:38, No significant changes seen Referred By: Melinda Price Electronically Signed By: Steve Perez
[2024-11-27 17:13] LABS: MANUAL DIFF FLAG NO
[2024-11-27 17:17] LABS: Basophils Absolute Auto 0.1 X10*3/uL (0.0-0.2); Basophils Percent Auto 0.5 % (0-2); Eosinophils Absolute Auto 0.3 X10*3/uL (0.0-0.4); Hematocrit 45.3 % (42.0-52.0); Hemoglobin 16.2 g/dl (14.0-18.0); Imm Gran Abs Auto 0.05 X10*3/uL (0.00-0.03); Imm Gran Pct Auto 0.4 % (0.0-0.4); Lymphocytes Absolute Auto 1.9 X10*3/uL (1.2-4.9); Lymphocytes Percent Auto 13.5 % (20-40); Mean Corpuscular HGB Conc 35.8 g/dl (31.0-36.0); Mean Corpuscular Hemoglobin 34.8 pg (27.0-33.0); Mean Corpuscular Volume 97.2 fL (80.0-98.0); Mean Platelet Volume 9.1 fL (9.4-12.4); Monocytes Absolute Auto 0.9 X10*3/uL (0.1-1.2); Monocytes Percent Auto 6.6 % (2-11); Neutrophils Absolute Auto 10.5 x10*3/uL (2.0-8.3); Platelet Count 279 X10*3/uL (160-400); Red Blood Count 4.66 X10*6/uL (4.60-5.80); Red Cell Distribution Width 12.3 % (11.0-16.0); White Blood Count 13.7 X10*3/uL (4.8-10.8)
[2024-11-27 17:30] LABS: Alanine Aminotransferase 24 U/L (0-40); Albumin Level 4.2 g/dL (3.5-5.0); Alkaline Phosphatase 72 U/L (39-117); Anion Gap 11 (12-20); Aspartate Amino Transferase 22 U/L (5-37); Bilirubin Total 0.6 mg/dL (0.0-1.0); Blood Urea Nitrogen 7 mg/dL (9-16); Calcium 9.2 mg/dL (8.4-10.2); Carbon Dioxide 27 mmol/L (22-29); Chloride 105 mmol/L (96-108); Estimated Glomerular Filt Rate > 60; Glucose Random 92 mg/dL (60-115); Magnesium 2.1 mg/dL (1.6-2.6); Potassium 4.5 mmol/L (3.3-5.1); Sodium 138 mmol/L (135-145); Total Protein 7.3 g/dL (6.5-8.0)
[2024-11-27 20:05] VITALS: BP 126/89; PULSE 121; RESP 16; TEMP 36.7; O2SAT 94
[2024-11-27 21:39] VITALS: BP 119/84; PULSE 106; RESP 12; TEMP 36.2; O2SAT 96
[2024-11-27 22:20] LABS: Ethanol < 10 mg/dL
--- NOTE | 2024-11-27 22:57 | PC.NURSE ---
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
--- NOTE | 2024-11-27 23:00 | PC.NURSE ---
belonging in [facility]
[2024-11-27 23:13] VITALS: BP 97/74; PULSE 97; RESP 14; TEMP 36.4; O2SAT 97
[2024-11-27 23:56] LABS: Amphetamine Screen Urine Not Detected (Not Detect); Barbiturates, Urine Not Detected (Not Detect); Benzodiazepines Screen Urine Not Detected (Not Detect); Buprenorphine Scr Not Detected (Not Detect); Cannabinoid Screen Urine POSITIVE (Not Detect); Cocaine Screen Urine Not Detected (Not Detect); Fentanyl, urine Not Detected (Not Detect); Methadone Screen, Urine Not Detected (Not Detect); Opiate Screen Urine Not Detected (Not Detect); Oxycodone Screen Urine Not Detected (Not Detect); Phencyclidine Screen Urine Not Detected (Not Detect)
--- NOTE | 2024-11-28 02:38 | PC.NURSE ---
xray taken, labs ordered, awaiting to be seen by provider.
[2024-11-28 05:33] VITALS: BP 125/82; PULSE 72; RESP 16; TEMP 36.4; O2SAT 98
--- NOTE | 2024-11-28 07:00 | PC.NURSE ---
Notified QUAN Méndez, regarding temp and blood in urine. per Quan Perez report urology consult
[2024-11-28 07:51] VITALS: BP 128/71; PULSE 82; RESP 16; O2SAT 98
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
--- NOTE | 2024-11-28 10:20 | MHC.CARE ---
Pt will be an [facility] bedsearch
--- NOTE | 2024-11-28 11:40 | PC.NURSE ---
Previous RN Rhoda spoke to pharmacy RE: med rec, pharmacy will be down to complete when able.
--- NOTE | 2024-11-28 12:19 | PC.NURSE ---
Addendum entered by Renay Paulino RN 11/28/24 13:07: MEDS INVENTORIED, PLACED IN MED BAG, RETURNED TO PATIENT'S BELONGINGS IN [facility] CLOSET. Original Note: Med Rec completed w/ registered pharmacy technician at bedside. Patient had all medications in his backpack. Meds removed from back pack, will be sent to pharmacy once appropriate form to be filled out is found.
--- NOTE | 2024-11-28 12:24 | PHA.MEDREC ---
Addendum entered by Sung Alcaraz RPh 11/28/24 12:34: MED REC CHECKED BY [facility] Original Note: Pharmacy Consult ? Medication Reconciliation Pharmacy has completed the medication reconciliation. Spoke to patient to confirm med list. Patient had all his medications with him. Patient confirmed Hydroxyzine HCl 25 mg q 6 h prn and Quetiapine is now 300 mg at bedtime. Patient states he last took Trazadone and zolpidem last night and all his other medications was 2 days ago.
[2024-11-28 13:19] VITALS: BP 112/78; PULSE 82; RESP 16; TEMP 36.7; O2SAT 95
--- NOTE | 2024-11-28 13:25 | MHC.CARE ---
[facility] referrals faxed to [facility], received by [facility], and activated. 3 day follow up requested for additional out patient services as well.
--- NOTE | 2024-11-28 14:03 | MHC.CARE ---
[facility] referral completed.
--- NOTE | 2024-11-28 14:40 | PC.NURSE ---
RN to Rn report given to Cristy, patient escorted to POD w/o incident.
--- NOTE | 2024-11-28 17:03 | PC.NURSE ---
Patient resting comfortably, report given to [facility] respite. Plan for transport to [facility] respite tomorrow am at 0945
[2024-11-28 21:11] VITALS: BP 129/84
[2024-11-28] MEDS: Zolpidem Tartrate 5 MG TABLET PO (21:11)
[2024-11-28] MEDS: Prazosin HCL 1 MG CAPSULE 2 MG PO (21:11)
[2024-11-28] MEDS: QUEtiapine Fumarate 300 MG TABLET PO (21:11)
[2024-11-28] MEDS: Melatonin 3 MG TABLET 6 MG PO (21:11)
[2024-11-28] MEDS: traZODone HCL 100 MG TABLET 200 MG PO (21:12)
[2024-11-28 21:13] VITALS: BP 129/84; PULSE 87; RESP 18; TEMP 37.4; O2SAT 98
--- NOTE | 2024-11-29 05:50 | PC.NURSE ---
Patient slept through the night, no distress observed/reported, med and meals compliant, disposition per care team is Respite bed search, discharge to [facility] Respite at 0945, 15 minutes safety check, no behavior and safety concerns.
[2024-11-29] MEDS: Thiamine HCL 100 MG TABLET PO (09:25)
[2024-11-29] MEDS: Nicotine 14 MG PATCH.TD24 TRANSDERMA (09:25)
[2024-11-29 09:38] VITALS: BP 116/82; PULSE 100; RESP 18; TEMP 36.6; O2SAT 96
== END 2024-11-29 09:42 | disposition home or self-care (01) ==
PROVIDERS: Physician Assistant Medical; Emergency Provider Emergency Medicine; PCP Internal Medicine
DX: S60.221A Contusion of right hand, initial encounter (principal); S40.011A Contusion of right shoulder, initial encounter; M25.532 Pain in left wrist; M25.511 Pain in right shoulder; M25.531 Pain in right wrist; R51.9 Headache, unspecified; M54.2 Cervicalgia; M79.642 Pain in left hand; M79.641 Pain in right hand; F17.210 Nicotine dependence, cigarettes, uncomplicated; R10.2 Pelvic and perineal pain; F33.1 Major depressive disorder, recurrent, moderate; I45.10 Unspecified right bundle-branch block; X58.XXXA Exposure to other specified factors, initial encounter; Y93.9 Activity, unspecified; Y92.9 Unspecified place or not applicable; Y99.8 Other external cause status; Z79.899 Other long term (current) drug therapy
CPT/HCPCS: 36415; 70450; 72125; 72170; 73030; 73110; 73130; 80053; 80307; 83735; 85025; 93005; 99285; S9485

== ENCOUNTER → 2024-11-27 16:53 | Outpatient (BNV) | payer OTHER, SELFPAY | PROVIDERS: PCP Internal Medicine; Visit Provider Radiology Neuroradiology | DX: M79.642 Pain in left hand (principal); M25.532 Pain in left wrist; S62.324A Displaced fracture of shaft of fourth metacarpal bone, right hand, initial encounter for closed fracture; R51.9 Headache, unspecified; M54.2 Cervicalgia; M25.511 Pain in right shoulder; M54.9 Dorsalgia, unspecified | CPT/HCPCS: 70450; 72125; 72170; 73030; 73110; 73130 ==

== ENCOUNTER → 2024-11-27 16:55 | Outpatient (BNV) | payer OTHER, SELFPAY | PROVIDERS: Emergency Provider Emergency Medicine; PCP Internal Medicine; Visit Provider Internal Medicine Cardiovascular Disease | DX: T88.7XXA Unspecified adverse effect of drug or medicament, initial encounter (principal) | CPT/HCPCS: 93010 ==

== ENCOUNTER 2025-01-25 09:26 | Emergency (ER) | payer OTHER, SELFPAY ==
[2025-01-25] VITALS (10 sets, daily range): BP systolic 92–112; BP diastolic 50–77; PULSE 64–105; RESP 14–17; TEMP 36.6–36.8; O2SAT 94–97; BMI 24.8
--- NOTE | ~2025-01-25 | CT_ITS ---
EXAMINATION: CT CERVICAL SPINE WITHOUT CONTRAST CLINICAL INFORMATION: Syncope. Headache. COMPARISON: November 27, 2024. TECHNIQUE: Contiguous axial images through the cervical spine using 3 mm collimation with bone and soft tissue algorithm. Sagittal and coronal reformatted images acquired. This CT examination was performed using dose optimization techniques as appropriate, variously including the following: *Automated exposure control *Adjustment of mA and/or kV according to patient size (this includes techniques or standardized protocols for targeted exams where dose is matched to indication/reason for exam; i.e. extremities or head) *Use of iterative reconstruction technique. DLP: 456.52 mGy centimeter. FINDINGS: Craniocervical junction is intact. C1 is intact. C2 is intact. C3 is intact. C4 is intact. Left facet joint hypertrophy. C5 is intact. C6 is intact. C7 is intact. No prevertebral compartment hematoma. Marginal osteophyte formation and endplate sclerosis subchondral cyst formation and decreased intervertebral disc height, C6-7 and to a lesser extent C5-6 and C3-4 levels. Grade 1 anterolisthesis C4-5. Reverse curvature apex at C6. Central spinal canal stenosis on a multifactorial basis at C3-4, C4-5 and C6-7 levels. Paraseptal emphysematous changes in the included lungs. Poor pneumatization of the left mastoid air cells. CT/CT cervical spine wo IV con IMPRESSION: Multilevel cervical spondylosis, C5-6 and C6-7 and to a lesser extent C3-4 without acute fracture or trauma-related listhesis. Fleischner guidelines were followed. Electronically signed by: Harry Martinez MD 01/25/2025 12:18 PM EDT
--- NOTE | ~2025-01-25 | CT_ITS ---
EXAMINATION: CT HEAD WITHOUT CONTRAST CLINICAL INFORMATION: syncope, +HS COMPARISON: November 27, 2024. TECHNIQUE: Contiguous axial imaging was performed from the skull base to vertex without intravenous administration of contrast. This CT examination was performed using dose optimization techniques as appropriate, variously including the following: *Automated exposure control *Adjustment of mA and/or kV according to patient size (this includes techniques or standardized protocols for targeted exams where dose is matched to indication/reason for exam; i.e. extremities or head) *Use of iterative reconstruction technique DLP: 779.21 mGy-cm FINDINGS: Old traumatic deformity nasal bones. Bony calvarium is intact. Skull base is intact. No acute intracranial hemorrhage, mass effect, midline shift, hydrocephalus or herniation. Prominence of the extra-axial CSF spaces cerebral sulci and ventricles. Focal old macrocystic encephalomalacia left occipital. Sheth-white matter differentiation is normal. Sellar/suprasellar region demonstrated no gross masses or hemorrhage. Craniocervical junction is intact. Retention cysts versus polyp, right sphenoid sinus. Polypoid mucosal thickening, ethmoid air cells and left frontal sinus. Tympanic cavities and mastoid antrum are aerated. Poor pneumatization of the left mastoid air cells. Calcified plaques in the cavernous supraclinoid segments of the ICAs. CT/CT head/brain wo IV con IMPRESSION: No acute fracture, bony calvarium. No acute intracranial hemorrhage. Old traumatic deformities, nasal bones. 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 Electronically signed by: Harry Martinez MD 01/25/2025 11:44 AM EDT
--- NOTE | ~2025-01-25 | XR_ITS ---
EXAMINATION: XR CHEST 1 VIEW HISTORY: syncope COMPARISON: There are no prior studies for comparison. FINDINGS: Two AP portable views of the chest performed at 11:48 AM are submitted. There is subsegmental atelectasis versus scarring at the left lung base. The right lung is clear. There is no pleural effusion, pneumothorax, or pulmonary vascular congestion. The heart is normal in size. The bones are intact. XR/XR chest 1V IMPRESSION: Left basilar subsegmental atelectasis. Electronically signed by: Ramon Batres MD 01/25/2025 12:16 PM EDT
[2025-01-25 09:42] LABS: Glucose, Whole Blood 81 mg/dL (60-115)
--- NOTE | 2025-01-25 09:43 | ECG_ITS ---
Test Reason : SYNCOPE Blood Pressure : */* mmHG Vent. Rate : 94 BPM Atrial Rate : 94 BPM P-R Int : 152 ms QRS Dur : 82 ms QT Int : 334 ms P-R-T Axes : 50 27 39 degrees QTcB Int : 417 ms Normal sinus rhythm Normal ECG When compared with ECG of 27-Nov-2024 17:05, No significant changes seen Referred By: Generic ED Physician Electronically Signed By: TRAM BRADLEY
--- NOTE | 2025-01-25 09:45 | PC.NURSE ---
ARRIVES FROM [facility], IS THERE VOLUNTARILY FOR DEPRESSION. NO SUBSTANCE USE HX, NO SIG PMH. RESTING IN NAD, NSR ON MONITOR, A&OX4. PT IS CHANGED OVER INTO HOSPITAL MH ATTIRE, SITTER AT BEDSIDE PER FACILITY PROTOCOL.
[2025-01-25 10:10] LABS: MANUAL DIFF FLAG NO
[2025-01-25 10:14] LABS: Basophils Absolute Auto 0.1 X10*3/uL (0.0-0.2); Basophils Percent Auto 0.9 % (0-2); Eosinophils Absolute Auto 0.6 X10*3/uL (0.0-0.4); Hematocrit 45.8 % (42.0-52.0); Hemoglobin 15.6 g/dl (14.0-18.0); Imm Gran Abs Auto 0.03 X10*3/uL (0.00-0.03); Imm Gran Pct Auto 0.3 % (0.0-0.4); Lymphocytes Absolute Auto 1.2 X10*3/uL (1.2-4.9); Lymphocytes Percent Auto 13.4 % (20-40); Mean Corpuscular HGB Conc 34.1 g/dl (31.0-36.0); Mean Corpuscular Hemoglobin 33.8 pg (27.0-33.0); Mean Corpuscular Volume 99.1 fL (80.0-98.0); Mean Platelet Volume 10.1 fL (9.4-12.4); Monocytes Absolute Auto 0.6 X10*3/uL (0.1-1.2); Monocytes Percent Auto 7.3 % (2-11); Neutrophils Absolute Auto 6.3 x10*3/uL (2.0-8.3); Neutrophils Percent Auto 71.1 % (45-73); Platelet Count 245 X10*3/uL (160-400); Red Blood Count 4.62 X10*6/uL (4.60-5.80); Red Cell Distribution Width 12.4 % (11.0-16.0); White Blood Count 8.8 X10*3/uL (4.8-10.8)
[2025-01-25 10:35] LABS: Alanine Aminotransferase 17 U/L (0-40); Albumin Level 3.9 g/dL (3.5-5.0); Alkaline Phosphatase 67 U/L (39-117); Anion Gap 9 (12-20); Aspartate Amino Transferase 20 U/L (5-37); Bilirubin Total 0.5 mg/dL (0.0-1.0); Blood Urea Nitrogen 11 mg/dL (9-16); Calcium 9.4 mg/dL (8.4-10.2); Carbon Dioxide 27 mmol/L (22-29); Chloride 107 mmol/L (96-108); Creatinine Clr Calc Pharmacy 124.2; Estimated Glomerular Filt Rate > 60; Glucose Random 81 mg/dL (60-115); Potassium 4.5 mmol/L (3.3-5.1); Sodium 138 mmol/L (135-145); Total Protein 6.3 g/dL (6.5-8.0)
[2025-01-25 10:43] LABS: Troponin-I High Sensitivity < 2.7 ng/L (<3.5-35.0)
--- NOTE | 2025-01-25 11:01 | ED_ITS ---
HPI - Syncope General Chief Complaint: Syncope Stated Complaint: NAUSEA,ABD PAIN,ON SEC 21 PER EMS Time Seen by Provider: 01/25/25 10:46 Source: patient, EMS, RN notes reviewed and old records reviewed Mode of arrival: EMS History of Present Illness ED Provider: Luisa Cruz PA-C HPI narrative: 54-year-old male with a past medical history of depression, ETOH use disorder, MDD, presenting to the ED via EMS from [facility] complaining of unwitnessed syncope x2 early this AM. reports syncopal episode around midnight while walking, reports prodrome of lightheadedness and leg weakness followed by syncope without head strike, states lowered himself to the ground. Reports additional syncopal episode around 04:30AM when got up to use the bathroom, states was urinating when felt lightheaded/ same symptoms as prior and syncopized with + head strike. Denies incontinence or tongue biting. Denies seizure history. Does report nausea x 24 hours, and chronic headaches. Denies vision change or loss, neck/ back pain, CP/ SOB, abdominal pain Related Data Home Medications ?Medication ?Instructions ?Recorded ?Confirmed hydroxyzine HCl 25 mg tablet 25 mg PO Q6H PRN anxiety 11/28/24 11/28/24 quetiapine 300 mg tablet 300 mg PO BEDTIME 11/28/24 11/28/24 trazodone 100 mg tablet 200 mg PO BEDTIME 11/28/24 11/28/24 Previous Rx's ?Medication ?Instructions ?Recorded bupropion HCl 300 mg 24 hr tablet, 300 mg PO DAILY 30 days #30 tabs 11/13/24 extended release melatonin 5 mg capsule 5 mg PO BEDTIME 30 days #30 caps 11/13/24 nicotine 14 mg/24 hr daily 1 patch transdermal DAILY 30 days 11/13/24 transdermal patch #28 ea prazosin 2 mg capsule 2 mg PO BEDTIME 30 days #30 caps 11/13/24 thiamine mononitrate (vit B1) 100 100 mg PO DAILY 30 days #30 tabs 11/13/24 mg tablet zolpidem 5 mg tablet 5 mg PO BEDTIME 7 days #7 tabs 11/13/24 Allergies Allergy/AdvReac Type Severity Reaction Status Date / Time No Known Allergies Allergy Verified 01/25/25 09:40 Review of Systems 2 Review of Systems: Yes all other systems are reviewed and are negative Constitutional: Constitutional: Reports as per HPI Neurologic: Denies Abnormal speech present [facility] Past Medical History Attestation statement: The following information was validated with the patient. Source: old records reviewed Medical History Depression with suicidal ideation Fracture of shaft of fourth metacarpal bone of right hand Rotator cuff tear arthropathy of left shoulder Alcohol use disorder MDD (major depressive disorder), recurrent severe, without psychosis No known health problems Social History Social History Household Members: None Housing: Homeless Do you presently have visiting nurse or other home services: No Alcohol intake: current Alcohol intake frequency: does not drink Alcohol type: beer Patient Tobacco Use Status: Current everyday Tobacco user Tobacco use type: Cigarette Cigarette Packs Per Day: 1 Cigarettes Per Day: 20.0 Second Hand Smoke Exposure: No Substance Use Type: Marijuana service: No Current occupational status: employed 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, 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 Sexual orientation: Straight/Heterosexual Physical Exam 2 Vital Signs: Vital Signs: Last Vital Signs Temp 98.3 F 01/25/25 15:02 Pulse 77 01/25/25 15:02 Resp 16 01/25/25 15:02 BP 104/67 01/25/25 15:02 Pulse Ox 97 01/25/25 15:02 O2 Del Method Room Air 01/25/25 15:02 BMI result Body Mass Index 24.8 Const: General: cooperative, healthy appearing and no acute distress O rientation/consciousness: patient oriented x3 Limitations: no limitations HEENT: Head: Yes normal to inspection and Yes atraumatic Ears: hearing grossly normal bilaterally General nose exam: Normal external nose present Face and sinus: Yes normal facial exam Mouth: Normal oral and palatal mucosa present and no drooling Throat: Yes posterior oropharynx normal, Yes tonsils normal and Yes uvula midline Eyes: General: appearance normal, both eyes and all related structures P upils: Equal, round and reactive pupils present EOM: EOMs intact bilaterally Neck: Neck: Yes normal visual inspection and Yes no meningeal signs Resp: Effort & Inspection: normal respiratory effort and no respiratory distress Auscultation: clear to auscultation bilaterally and no wheezes Cardio: Rate: regular rate Heart sounds: S1 normal heart sound present and S2 normal heart sound present GI: Inspection: Yes normal to inspection Palpation (GI): Soft to palpation, nontender, no guarding and not rigid : General: Yes no CVA tenderness Back/Spine/Pelvis: Other: No midline cervical/thoracic/lumbar spinous tenderness/step-off or deformity Back: no CVA tenderness Skin: Rashes: no rashes Wounds: no wounds Neuro: General: patient oriented x3, gait normal, tone normal, moves all extremities, no meningeal signs, no focal motor deficits and CN's II-XI intact bilaterally Cranial nerves: Yes CN's II-XII intact bilaterally and Yes Equal, round and reactive pupils present Cognition (Neuro): normal cognition S peech: No Abnormal speech present Motor exam (neuro): 5/5 motor strength present throughout and no tremor noted Coordination: poegmw-me-norf test normal Romberg Test: Negative Extrem: General: Yes normal to inspection Course Course Course Narrative: -1125-- Labs reassuring. Initial troponin negative -1406-- D-dimer negative, PE unlikely - troponin x2 negative, mi unlikely - UA negative. Tox screen positive for THC XR chest 1V IMPRESSION: Left basilar subsegmental atelectasis. CT head/brain wo IV con IMPRESSION: No acute fracture, bony calvarium. No acute intracranial hemorrhage. Old traumatic deformities, nasal bones. 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 Fleischner guidelines were followed. - orthostatic vital signs positive with heart rate increase of 31 > will repeat after IVF >1442-- repeat orthostatic vital signs negative, heart rate still did increase. Recommended increase fluid intake at home and close PCP follow-up as well as Cardiology follow-up Results discussed with patient including worrisome signs and symptoms and strict return precautions, and when to return to the emergency department. They verbalized understanding and feel safe for discharge at this time. Medications Administered Discontinued Medications Generic Name Dose Route Start Last Admin Trade Name Freq PRN Reason Stop Dose Admin Sodium Chloride 1,000 mls @ 999 mls/hr 01/25/25 11:15 01/25/25 12:51 Ns IV 01/25/25 12:15 Infused .Q1H1M AUTUMN Infusion Medical Decision Making Medical Decision Making [facility] Narrative: 54-year-old male with a past medical history of depression, ETOH use disorder, MDD, presenting to the ED via EMS from [facility] complaining of unwitnessed syncope x2 early this AM. On exam vital signs stable, NAD, nontoxic appearing, no evidence of trauma, no midline spinous tenderness throughout, no focal neuro deficits. Concern for vasovagal syncope vs metabolic abnormalities vs arrhythmia/atypical ACS. Lower suspicion for PE. Unlikely dissection. Rule out ICH nausea Plan EKG, labs, UA, tox screen, head/ C-spine CT, CXR, IVF, orthostatics, re- evaluate Please refer to course for remaining clinical decision making, interpretation of labs/imaging results, and discussions with consultants and/or family members. Differential Diagnosis Differential Diagnoses: The differential diagnosis associated with the presentation includes As above Admission/Observation Consideration of admission/observation: Escalation of care including admission/observation considered Lab Data [facility] Lab Attestation statement: I reviewed the patient's lab results. 01/25/25 10:02 01/25/25 10:02 Labs: Lab Results 01/25/25 01/25/25 01/25/25 Range/Units 09:38 10:02 12:28 WBC 8.8 (4.8-10.8) X10*3/uL RBC 4.62 (4.60-5.80) X10*6/uL Hgb 15.6 (14.0-18.0) g/dl Hct 45.8 (42.0-52.0) % MCV 99.1 H (80.0-98.0) fL MCH 33.8 H (27.0-33.0) pg MCHC 34.1 (31.0-36.0) g/dl RDW 12.4 (11.0-16.0) % Plt Count 245 (160-400) X10*3/uL MPV 10.1 (9.4-12.4) fL Immature Gran % (Auto) 0.3 (0.0-0.4) % Neut % (Auto) 71.1 (45-73) % Lymph % (Auto) 13.4 L (20-40) % [place] % (Auto) 7.3 (2-11) % Eos % (Auto) 7.0 H (0-4) % Baso % (Auto) 0.9 (0-2) % Lymph # (Auto) 1.2 (1.2-4.9) X10*3/uL [place] # (Auto) 0.6 (0.1-1.2) X10*3/uL Eos # (Auto) 0.6 H (0.0-0.4) X10*3/uL Baso # (Auto) 0.1 (0.0-0.2) X10*3/uL Abs Immat Gran (auto) 0.03 (0.00-0.03) X10*3/uL Absolute Neuts (auto) 6.3 (2.0-8.3) x10*3/uL Absolute Nucleated RBC 0.000 (0.0-0.012) X10*3/uL Nucleated RBC % (auto) 0.0 (0.0-0.2) /100WBC D-Dimer High Sensitivty NG/ML Sodium 138 (135-145) mmol/L Potassium 4.5 (3.3-5.1) mmol/L Chloride 107 (96-108) mmol/L Carbon Dioxide 27 (22-29) mmol/L Anion Gap 9 L (12-20) BUN 11 (9-16) mg/dL Creatinine 0.71 (0.5-1.4) mg/dL Estim Creat Clear Calc 124.2 Estimated GFR > 60 POC Glucose 81 (60-115) mg/dL Random Glucose 81 (60-115) mg/dL Calcium 9.4 (8.4-10.2) mg/dL Magnesium 2.2 (1.6-2.6) mg/dL Total Bilirubin 0.5 (0.0-1.0) mg/dL AST 20 (5-37) U/L ALT 17 (0-40) U/L Alkaline Phosphatase 67 (39-117) U/L Troponin I High Sens < 2.7 (<3.5-35.0) ng/L Total Protein 6.3 L (6.5-8.0) g/dL Albumin 3.9 (3.5-5.0) g/dL Urine Color Yellow Urine Appearance Clear Urine pH 8.0 (5.0-9.0) Ur Specific Sycam[place] 1.015 (1.005-1.025) Urine Protein Negative (Neg-Trace) mg/dL Urine Glucose (UA) Negative (Negative) mg/dL Urine Ketones Negative (Negative) mg/dL Urine Blood Negative (Negative) Urine Nitrite Negative (Negative) Ur Leukocyte Esterase Negative (Negative) Urine Opiates Screen Not Detected (Not Detect) Ur Buprenorphine Scrn Not Detected (Not Detect) ng/mL Ur Oxycodone Screen Not Detected (Not Detect) ng/mL Urine Methadone Screen Not Detected (Not Detect) ng/mL Urine Fentanyl Screen Not Detected (Not Detect) Ur Barbiturates Screen Not Detected (Not Detect) Ur Phencyclidine Scrn Not Detected (Not Detect) Ur Amphetamines Screen Not Detected (Not Detect) U Benzodiazepines Scrn Not Detected (Not Detect) Urine Cocaine Screen Not Detected (Not Detect) U Marijuana (THC) Screen POSITIVE H (Not Detect) 01/25/25 Range/Units 12:46 WBC (4.8-10.8) X10*3/uL RBC (4.60-5.80) X10*6/uL Hgb (14.0-18.0) g/dl Hct (42.0-52.0) % MCV (80.0-98.0) fL MCH (27.0-33.0) pg MCHC (31.0-36.0) g/dl RDW (11.0-16.0) % Plt Count (160-400) X10*3/uL MPV (9.4-12.4) fL Immature Gran % (Auto) (0.0-0.4) % Neut % (Auto) (45-73) % Lymph % (Auto) (20-40) % Cortland % (Auto) (2-11) % Eos % (Auto) (0-4) % Baso % (Auto) (0-2) % Lymph # (Auto) (1.2-4.9) X10*3/uL [place] # (Auto) (0.1-1.2) X10*3/uL Eos # (Auto) (0.0-0.4) X10*3/uL Baso # (Auto) (0.0-0.2) X10*3/uL Abs Immat Gran (auto) (0.00-0.03) X10*3/uL Absolute Neuts (auto) (2.0-8.3) x10*3/uL Absolute Nucleated RBC (0.0-0.012) X10*3/uL Nucleated RBC % (auto) (0.0-0.2) /100WBC D-Dimer High Sensitivty 169 NG/ML Sodium (135-145) mmol/L Potassium (3.3-5.1) mmol/L Chloride (96-108) mmol/L Carbon Dioxide (22-29) mmol/L Anion Gap (12-20) BUN (9-16) mg/dL Creatinine (0.5-1.4) mg/dL Estim Creat Clear Calc Estimated GFR POC Glucose (60-115) mg/dL Random Glucose (60-115) mg/dL Calcium (8.4-10.2) mg/dL Magnesium (1.6-2.6) mg/dL Total Bilirubin (0.0-1.0) mg/dL AST (5-37) U/L ALT (0-40) U/L Alkaline Phosphatase (39-117) U/L Troponin I High Sens < 2.7 (<3.5-35.0) ng/L Total Protein (6.5-8.0) g/dL Albumin (3.5-5.0) g/dL Urine Color Urine Appearance Urine pH (5.0-9.0) Ur Specific Sycamore (1.005-1.025) Urine Protein (Neg-Trace) mg/dL Urine Glucose (UA) (Negative) mg/dL Urine Ketones (Negative) mg/dL Urine Blood (Negative) Urine Nitrite (Negative) Ur Leukocyte Esterase (Negative) Urine Opiates Screen (Not Detect) Ur Buprenorphine Scrn (Not Detect) ng/mL Ur Oxycodone Screen (Not Detect) ng/mL Urine Methadone Screen (Not Detect) ng/mL Urine Fentanyl Screen (Not Detect) Ur Barbiturates Screen (Not Detect) Ur Phencyclidine Scrn (Not Detect) Ur Amphetamines Screen (Not Detect) U Benzodiazepines Scrn (Not Detect) Urine Cocaine Screen (Not Detect) U Marijuana (THC) Screen (Not Detect) Independent Interpretation I performed an independent interpretation of an: EKG ( my interpretation EKG normal sinus rhythm rate of 94. SD interval 152. QTC 417. No STEMI.) and Plain X-Ray Radiology Impression Discussion of test interpretation with radiology: I have reviewed the radiologist's reading. Independent Historian Clinical information obtained from an independent historian. History obtained from or confirmed by: EMS External Record Review External record reviewed: Inpatient record, Office record, Outpatient record, Prior outpatient labs, Prior outpatient radiology, Primary care record and Outside ED record Tests considered The following testing was considered but not selected: As above Prescription Management I considered prescription management with: Other Chronic Conditions Patient?s care impacted by: Other Social Determinants Patient?s care significantly limited by Social Determinants of Health including: Alcoholism and drug addiction in family, Problems related to primary support group, Unemployment and Other Social Determinant of Health Discharge Plan Discharge Clinical Impression: Syncope, Orthostasis Patient Disposition: Home, Self-Care Instructions: Syncope (DC) Additional Instructions: your blood work and imaging studies are reassuring Your heart rate significantly increased with position change, you need to increase your fluid intake at home. Please stay hydrated. Please drink water, Gatorade, Pedialyte Change positions slowly If you have recurrent or persistent lightheadedness/syncopal episodes return to the ED immediately Please have close follow up with her primary care doctor as well as Cardiology Prescriptions: No Action thiamine mononitrate (vit B1) 100 mg Tablet 100 mg PO DAILY 30 Days Qty: 30 0RF melatonin 5 mg capsule 5 mg PO BEDTIME 30 Days Qty: 30 0RF zolpidem 5 mg Tablet 5 mg PO BEDTIME 7 Days Qty: 7 3RF bupropion HCl 300 mg Tablet Extended Release 24 Hr 300 mg PO DAILY 30 Days Qty: 30 0RF prazosin 2 mg capsule 2 mg PO BEDTIME 30 Days Qty: 30 0RF nicotine 14 mg/24 hr patch 24 hour 1 patch transdermal DAILY 30 Days Qty: 28 0RF trazodone 100 mg tablet 200 mg PO BEDTIME quetiapine 300 mg tablet 300 mg PO BEDTIME hydroxyzine HCl 25 mg tablet 25 mg PO Q6H PRN (Reason: anxiety) Referrals: Physician,None [Primary Care Provider] - 3 days Interventions: ED Discharge Assessment Last Done: 01/25/25 15:02 Discharge Date/Time: 01/25/25 16:41 Print Language: Georgian
[2025-01-25] MEDS: 0.9 % Sodium Chloride 1,000 ML 999 ML IV (11:22)
[2025-01-25 11:29] LABS: Magnesium 2.2 mg/dL (1.6-2.6)
[2025-01-25 12:43] LABS: Appearance Urine Clear; Color Urine Yellow; Glucose Urine UA Negative (Negative); Leukocyte Esterase Urine Negative (Negative); Nitrite Urine Negative (Negative); Specific Gravity - Urine 1.015 (1.005-1.025); Urine Blood Negative (Negative); Urine Ketones Negative (Negative); Urine Protein Negative (Neg-Trace)
[2025-01-25 12:53] LABS: Amphetamine Screen Urine Not Detected (Not Detect); Barbiturates, Urine Not Detected (Not Detect); Benzodiazepines Screen Urine Not Detected (Not Detect); Buprenorphine Scr Not Detected (Not Detect); Cannabinoid Screen Urine POSITIVE (Not Detect); Cocaine Screen Urine Not Detected (Not Detect); Fentanyl, urine Not Detected (Not Detect); Methadone Screen, Urine Not Detected (Not Detect); Opiate Screen Urine Not Detected (Not Detect); Oxycodone Screen Urine Not Detected (Not Detect); Phencyclidine Screen Urine Not Detected (Not Detect)
[2025-01-25 13:03] LABS: D Dimer High Sensitivity 169 NG/ML
[2025-01-25 13:18] LABS: Troponin-I High Sensitivity < 2.7 ng/L (<3.5-35.0)
--- NOTE | 2025-01-25 15:12 | PC.NURSE ---
attempted to give nurse report to dany pop, no answer
--- NOTE | 2025-01-25 15:37 | PC.NURSE ---
verbal nurse to nurse given to HILDA prado at [facility]
--- NOTE | 2025-01-25 16:40 | PC.NURSE ---
verbal report given to ems personnel. pt to dany pop via ambulance.
== END 2025-01-25 16:41 | disposition home or self-care (01) ==
PROVIDERS: Physician Assistant; Emergency Provider Emergency Medicine
DX: R55 Syncope and collapse (principal); I95.1 Orthostatic hypotension; F17.210 Nicotine dependence, cigarettes, uncomplicated; F12.90 Cannabis use, unspecified, uncomplicated; Z79.899 Other long term (current) drug therapy
CPT/HCPCS: 36415; 70450; 71045; 72125; 80053; 80307; 81003; 82947; 83735; 84484; 85025; 85379; 93005; 96360; 99284; 99285

== ENCOUNTER → 2025-01-25 09:43 | Outpatient (BNV) | payer OTHER, SELFPAY | PROVIDERS: Emergency Provider Emergency Medicine; Visit Provider Internal Medicine | DX: R55 Syncope and collapse (principal) | CPT/HCPCS: 93010 ==

== ENCOUNTER → 2025-01-25 11:13 | Outpatient (BNV) | payer OTHER, SELFPAY | PROVIDERS: Emergency Provider Emergency Medicine; Visit Provider Radiology Diagnostic Radiology | DX: M47.812 Spondylosis without myelopathy or radiculopathy, cervical region (principal); R55 Syncope and collapse; R51.9 Headache, unspecified; J98.11 Atelectasis | CPT/HCPCS: 70450; 71045; 72125 ==

== ENCOUNTER 2025-02-27 03:33 | Inpatient (IN) | payer OTHER, SELFPAY ==
[2025-02-27 03:48] VITALS: BP 115/81; BP 128/90; PULSE 74; PULSE 99; RESP 16; TEMP 36.3; O2SAT 96; BMI 22.1
--- NOTE | 2025-02-27 03:48 | MHC.EDTECH ---
pt changed over on arrival with this tech, security and rn. all belonings locked in [facility] shelf one by security.
[2025-02-27 04:29] LABS: Alanine Aminotransferase 20 U/L (0-40); Albumin Level 3.7 g/dL (3.5-5.0); Alkaline Phosphatase 69 U/L (39-117); Anion Gap 15 (12-20); Aspartate Amino Transferase 29 U/L (5-37); Bilirubin Total 0.3 mg/dL (0.0-1.0); Blood Urea Nitrogen 8 mg/dL (9-16); Calcium 8.8 mg/dL (8.4-10.2); Carbon Dioxide 23 mmol/L (22-29); Chloride 110 mmol/L (96-108); Creatinine Clr Calc Pharmacy 112.6; Estimated Glomerular Filt Rate > 60; Ethanol 80 mg/dL; Glucose Random 81 mg/dL (60-115); Potassium 3.9 mmol/L (3.3-5.1); Sodium 144 mmol/L (135-145); Total Protein 6.4 g/dL (6.5-8.0)
[2025-02-27 04:30] LABS: Basophils Absolute Auto 0.1 X10*3/uL (0.0-0.2); Basophils Percent Auto 1.2 % (0-2); Eosinophils Absolute Auto 0.7 X10*3/uL (0.0-0.4); Eosinophils Percent Auto 10.7 % (0-4); Hematocrit 41.7 % (42.0-52.0); Hemoglobin 14.4 g/dl (14.0-18.0); Imm Gran Abs Auto 0.01 X10*3/uL (0.00-0.03); Imm Gran Pct Auto 0.1 % (0.0-0.4); Lymphocytes Absolute Auto 1.9 X10*3/uL (1.2-4.9); Lymphocytes Percent Auto 27.9 % (20-40); Mean Corpuscular HGB Conc 34.5 g/dl (31.0-36.0); Mean Corpuscular Hemoglobin 33.4 pg (27.0-33.0); Mean Corpuscular Volume 96.8 fL (80.0-98.0); Mean Platelet Volume 9.5 fL (9.4-12.4); Monocytes Absolute Auto 0.5 X10*3/uL (0.1-1.2); Monocytes Percent Auto 8.1 % (2-11); Neutrophils Absolute Auto 3.5 x10*3/uL (2.0-8.3); Platelet Count 242 X10*3/uL (160-400); Red Blood Count 4.31 X10*6/uL (4.60-5.80); Red Cell Distribution Width 12.9 % (11.0-16.0); White Blood Count 6.7 X10*3/uL (4.8-10.8)
[2025-02-27 04:36] LABS: MANUAL DIFF FLAG NO
[2025-02-27 06:00] VITALS: BP 95/60; PULSE 83; RESP 16; TEMP 36.4; O2SAT 98
--- NOTE | 2025-02-27 08:11 | ED_ITS ---
HPI - Psych General Chief Complaint: Psychiatric Symptoms Stated Complaint: SI Time Seen by Provider: 02/27/25 07:10 History of Present Illness HPI Narrative: Patient is a 54-year-old male homeless. Had thoughts of wanting to hang himself after drinking liquor. Patient is very sleepy very hungry. Has no specific complaints at this time. Did not actually attempt to hang himself. Admits to drinking alcohol no other recreational drugs. Related Data Home Medications ?Medication ?Instructions ?Recorded ?Confirmed bupropion HCl 300 mg 24 hr tablet, 300 mg PO DAILY 02/27/25 02/27/25 extended release (Wellbutrin XL) cyclobenzaprine 10 mg tablet 10 mg PO Q12H PRN Pain (Scale 02/27/25 02/27/25 Score 4-6) gabapentin 100 mg capsule 100 mg PO TID 02/27/25 02/27/25 (Neurontin) nicotine 14 mg/24 hr daily 1 patch transdermal DAILY 02/27/25 02/27/25 transdermal patch (Nicoderm CQ) quetiapine 400 mg tablet 400 mg PO BEDTIME 02/27/25 02/27/25 Allergies Allergy/AdvReac Type Severity Reaction Status Date / Time No Known Allergies Allergy Verified 02/27/25 03:50 Review of Systems 2 Review of Systems: Positive suicidal ideation Yes all other systems are reviewed and are negative PMFSH Past Medical History Attestation statement: The following information was validated with the patient. Medical History Depression with suicidal ideation Fracture of shaft of fourth metacarpal bone of right hand Rotator cuff tear arthropathy of left shoulder Alcohol use disorder MDD (major depressive disorder), recurrent severe, without psychosis No known health problems Social History Social History Household Members: None Housing: Homeless Do you presently have visiting nurse or other home services: No Alcohol intake: current Alcohol intake frequency: a few times a week Alcohol type: beer Patient Tobacco Use Status: Current everyday Tobacco user Tobacco use type: Cigarette Cigarette Packs Per Day: 1 Cigarettes Per Day: 20.0 Smoked in Last 30 Days: Yes Second Hand Smoke Exposure: No Use of substances other than those prescribed or required for medical reasons: No Substance Use Type: Marijuana Advance Directives: No Advance Directives Information Provided: Yes Do you have a plan to hurt others: No Plan service: No Current occupational status: employed 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 Oriented X3. No acute distress. Eyes: Pupils equal, round and reactive to light. ENT: Pharynx normal. Neck: Normal inspection. Neck supple. No lymph nodes noted. No crepitus CVS: Normal heart rate and rhythm. Pulses normal. Normal S1 and S2 Respiratory: No respiratory distress. Breath sounds normal. No Wheezing. No rales Abdomen: Soft and nontender. No rigidity. No distention. good BS x4 Skin: Skin warm and dry. Normal skin color. Normal skin turgor. Extremities: No lower extremity edema. Neurovascular intact to all extremities. No Lacerations. No Rash Neuro: Oriented X 3. No motor deficit. No sensory deficit. Moving all extermities. No slurred speech Medical Decision Making Medical Decision Making MDM Narrative: Positive suicidal ideation positive EtOH. Awaiting crisis evaluation. Patient's alcohol level was only 80. No acute distress. Well-appearing. Evaluated by crisis. Patient to be admitted. Currently is a bed search. Differential Diagnosis Differential Diagnoses: The differential diagnosis associated with the presentation includes Alcohol intoxication suicidal ideation Admission/Observation Consideration of admission/observation: Escalation of care including admission/observation considered Consult Healthcare Provider Management of the patient was discussed with: Behavioral Health Provider Lab Data [facility] Lab Attestation statement: I reviewed the patient's lab results. 02/27/25 04:25 02/27/25 03:59 Labs: Lab Results 02/27/25 02/27/25 02/27/25 Range/Units 03:59 04:25 10:27 WBC 6.7 (4.8-10.8) X10*3/uL RBC 4.31 L (4.60-5.80) X10*6/uL Hgb 14.4 (14.0-18.0) g/dl Hct 41.7 L (42.0-52.0) % MCV 96.8 (80.0-98.0) fL MCH 33.4 H (27.0-33.0) pg MCHC 34.5 (31.0-36.0) g/dl RDW 12.9 (11.0-16.0) % Plt Count 242 (160-400) X10*3/uL MPV 9.5 (9.4-12.4) fL Immature Gran % (Auto) 0.1 (0.0-0.4) % Neut % (Auto) 52.0 (45-73) % Lymph % (Auto) 27.9 (20-40) % [place] % (Auto) 8.1 (2-11) % Eos % (Auto) 10.7 H (0-4) % Baso % (Auto) 1.2 (0-2) % Lymph # (Auto) 1.9 (1.2-4.9) X10*3/uL [place] # (Auto) 0.5 (0.1-1.2) X10*3/uL Eos # (Auto) 0.7 H (0.0-0.4) X10*3/uL Baso # (Auto) 0.1 (0.0-0.2) X10*3/uL Abs Immat Gran (auto) 0.01 (0.00-0.03) X10*3/uL Absolute Neuts (auto) 3.5 (2.0-8.3) x10*3/uL Absolute Nucleated RBC 0.000 (0.0-0.012) X10*3/uL Nucleated RBC % (auto) 0.0 (0.0-0.2) /100WBC Sodium 144 (135-145) mmol/L Potassium 3.9 (3.3-5.1) mmol/L Chloride 110 H (96-108) mmol/L Carbon Dioxide 23 (22-29) mmol/L Anion Gap 15 (12-20) BUN 8 L (9-16) mg/dL Creatinine 0.73 (0.5-1.4) mg/dL Estim Creat Clear Calc 112.6 Estimated GFR > 60 Random Glucose 81 (60-115) mg/dL Calcium 8.8 D (8.4-10.2) mg/dL Total Bilirubin 0.3 (0.0-1.0) mg/dL AST 29 (5-37) U/L ALT 20 (0-40) U/L Alkaline Phosphatase 69 (39-117) U/L Total Protein 6.4 L (6.5-8.0) g/dL Albumin 3.7 (3.5-5.0) g/dL Urine Color Yellow Urine Appearance Clear Urine pH 6.5 (5.0-9.0) Ur Specific [place] 1.020 (1.005-1.025) Urine Protein Negative (Neg-Trace) mg/dL Urine Glucose (UA) Negative (Negative) mg/dL Urine Ketones Negative (Negative) mg/dL Urine Blood Negative (Negative) Urine Nitrite Negative (Negative) Ur Leukocyte Esterase Negative (Negative) Urine Opiates Screen Not Detected (Not Detect) Ur Buprenorphine Scrn Not Detected (Not Detect) ng/mL Ur Oxycodone Screen Not Detected (Not Detect) ng/mL Urine Methadone Screen Not Detected (Not Detect) ng/mL Urine Fentanyl Screen Not Detected (Not Detect) Ur Barbiturates Screen Not Detected (Not Detect) Ur Phencyclidine Scrn Not Detected (Not Detect) Ur Amphetamines Screen Not Detected (Not Detect) U Benzodiazepines Scrn Not Detected (Not Detect) Urine Cocaine Screen Not Detected (Not Detect) U Marijuana (THC) Screen POSITIVE H (Not Detect) Ethyl Alcohol 80 mg/dL Independent Interpretation I performed an independent interpretation of an: EKG (Sinus heart rate is 80 CO QRS is normal. QTC is normal there is a partial right bundle branch block there is no acute ST segment elevation. Grossly the EKG is unchanged from previous) External Record Review External record reviewed: Inpatient record Social Determinants Patient?s care significantly limited by Social Determinants of Health including: Problems related to primary support group Discharge Plan Discharge Clinical Impression: Alcohol use disorder, Depression Patient Disposition: Admitted As Inpatient Interventions: [place]-Suicide Risk Severity Scale Last Done: 02/27/25 03:53 Admission Worksheet (ED) Last Done: 02/27/25 16:12
--- NOTE | 2025-02-27 09:57 | MHC.CARE ---
Pt will be an inpatient bedsearch
--- NOTE | 2025-02-27 10:14 | ECG_ITS ---
Test Reason : check qtc Blood Pressure : */* mmHG Vent. Rate : 79 BPM Atrial Rate : 79 BPM P-R Int : 142 ms QRS Dur : 96 ms QT Int : 390 ms P-R-T Axes : 52 -35 67 degrees QTcB Int : 447 ms Normal sinus rhythm with sinus arrhythmia Left axis deviation Incomplete right bundle branch block Abnormal ECG When compared with ECG of 25-Jan-2025 09:30, No significant changes seen Referred By: Joya Quan Electronically Signed By: TRAM BRADLEY
[2025-02-27 10:42] LABS: Appearance Urine Clear; Color Urine Yellow; Glucose Urine UA Negative (Negative); Leukocyte Esterase Urine Negative (Negative); Nitrite Urine Negative (Negative); PH 6.5 (5.0-9.0); Urine Blood Negative (Negative); Urine Ketones Negative (Negative); Urine Protein Negative (Neg-Trace)
[2025-02-27 10:54] LABS: Amphetamine Screen Urine Not Detected (Not Detect); Barbiturates, Urine Not Detected (Not Detect); Benzodiazepines Screen Urine Not Detected (Not Detect); Buprenorphine Scr Not Detected (Not Detect); Cannabinoid Screen Urine POSITIVE (Not Detect); Cocaine Screen Urine Not Detected (Not Detect); Fentanyl, urine Not Detected (Not Detect); Methadone Screen, Urine Not Detected (Not Detect); Opiate Screen Urine Not Detected (Not Detect); Oxycodone Screen Urine Not Detected (Not Detect); Phencyclidine Screen Urine Not Detected (Not Detect)
--- NOTE | 2025-02-27 11:57 | PC.NURSE ---
Patient presents with SI with a plan (hang himself) Depression with suicidal ideation, Fracture of shaft of fourth metacarpal bone of right hand, Rotator cuff tear arthropathy of left shoulder, Alcohol use disorder, MDD (major depressive disorder), recurrent severe, without psychosis. Patient resting comfortably. Lungs clear bilat. Respirations even and non-labored. Abdomen soft, non-tender with positive bowel sounds. Positive pedal pulses with no edema. Bed search pending.
[2025-02-27 14:25] VITALS: BP 112/68; PULSE 60; TEMP 36.6; O2SAT 95
--- NOTE | 2025-02-27 18:29 | PC.ADMIT ---
Addendum entered by Tita Aguirre RN 02/28/25 10:30: Addendum: Golf ball mass located to right upper arm, not forearm as previously recorded. Original Note: 54 y/o male admitted on a CV at 1620 from [facility] for depression and SI with plan to hang himself. Pt has hx of MDD and Alcohol Use DO. On arrival to unit pt was calm and cooperative with safety check. Pt's thoughts clear and linear. Pt tearful at times. Pt endorsed high depression, and reported feeling hopeless and helpless. Pt endorsed SI but stated he did not have urge or intent to harm self in the hospital. Pt help seeking. Pt reported one prior psych admit on M3 earlier this year. Pt has no hx of SA, however reported that he was not sure how much longer I can hold on. Precipitating factors include ongoing grief of the passing of his eight years ago, several back to back injuries sustained at work that led to the loss of employment a few years ago, which ultimately led to the loss of his housing. Pt reported he was homeless staying at [facility] in [place]. Pt reported he sought help after strong urge to drink liquor and hang himself. Pt c/o ongoing nightmares of bile . It's the same nightmare over and over again. Pt reported his passed from cancer, and added that she had large amounts of bile draining from her towards the end. Pt stated he never processed her . Pt reported he's been off medication for several months. Utox positive for marijuana and BAL 80. Pt stated All I do is drink a little and use some marijuana. Pt reported he did not drink every day, but can drink up to a 1/2 pint of eve a day when he can afford it. Pt stated ETOH intake estimated at a few times a week. Pt denied any hx of withdrawal seizures. Pt is an active nicotine user and requested a 21mg nicotine patch. Pt signed release for his sister Suzanne (please refer to the number listed on release as the number for her in the chart is not correct). Pt reported he was very worried that his belongings left under the stairs at [facility] would be stolen. However sister was notified on admission and she was able to get all of his belongings from that spot, which was of great relief to patient. Skin check was remarkable for a golf ball mass on his right forearm, which pt reported was painful and developed awhile ago after a TB injection. Hospitalist consult placed. Pt oriented to unit and placed on 15 minute checks.
[2025-02-27 19:17] VITALS: BMI 22.1
[2025-02-27 19:56] VITALS: BP 140/95; PULSE 89; TEMP 36.6; O2SAT 96
[2025-02-27] MEDS: Gabapentin 100 MG CAPSULE PO (20:47)
[2025-02-27] MEDS: Cyclobenzaprine HCl 10 MG TABLET PO (20:47)
[2025-02-27] MEDS: traZODone HCL 50 MG TABLET PO (20:48)
[2025-02-28 07:48] VITALS: BP 100/64; PULSE 69; TEMP 36.6; O2SAT 98
[2025-02-28] MEDS: buPROPion HCl XL 300 MG TAB.ER.24H PO (08:26)
[2025-02-28] MEDS: Gabapentin 100 MG CAPSULE PO ×3 (08:26→20:54)
[2025-02-28] MEDS: Nicotine 21 MG PATCH.TD24 TRANSDERMA (08:26)
[2025-02-28 08:34] LABS: Estimated Average Glucose 97 mg/dL; Hemoglobin A1C 124.9838 umol/L; Total Hemoglobin (HGBA1C) 4066.3448 umol/L
[2025-02-28 08:50] LABS: Alanine Aminotransferase 22 U/L (0-40); Albumin Level 3.8 g/dL (3.5-5.0); Alkaline Phosphatase 72 U/L (39-117); Anion Gap 11 (12-20); Aspartate Amino Transferase 26 U/L (5-37); Bilirubin Total 0.8 mg/dL (0.0-1.0); Blood Urea Nitrogen 14 mg/dL (9-16); Calcium 9.1 mg/dL (8.4-10.2); Carbon Dioxide 26 mmol/L (22-29); Chloride 105 mmol/L (96-108); Cholesterol 240 mg/dL (<200); Creatinine Clr Calc Pharmacy 114.1; Estimated Glomerular Filt Rate > 60; Glucose Random 90 mg/dL (60-115); HDL Cholesterol 49 mg/dL (>40); LDL Cholesterol Calculated 154 mg/dL (<100); Potassium 4.4 mmol/L (3.3-5.1); Sodium 138 mmol/L (135-145); Total Protein 6.5 g/dL (6.5-8.0); Triglycerides 187 mg/dL (<150)
[2025-02-28 09:04] LABS: TSH reflex Free T4 1.62 uIU/mL (0.32-4.0)
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
--- NOTE | 2025-02-28 13:06 | HO.PM.IMCN ---
History of Present Illness Data of Consult Service Date: 02/28/25 Requesting physician: Carlos Pan Primary Care Provider: Unknown Physician HPI Reason for consult: Mass to right bicep. 54-year-old single male with history of MDD, PTSD, complicated grieving, and alcohol use disorder presented to [facility] via EMS on 02/27/2025 for SI with plan to hang himself. He is under the psychaitric care team who requested a medical consult for a mass to his right upper arm. On exam he is resting in bed, denies any pain. Appears to be in NAD. He reports a lump on his right arm that has been present for about 25 years old. He reports that it developed after he received an injection 25 years ago. Denies any pain to area. He reports that he would like it removed and in the past it has been examined by other doctors who told him that there was no need to remove it as it was not bothering him. Review of Systems Review of Systems: Denies any SOB, Chest pain, dizziness, headaches, abdominal pain, shoulder pain. Yes all other systems are reviewed and are negative PMFSH Medical History Depression with suicidal ideation Fracture of shaft of fourth metacarpal bone of right hand Rotator cuff tear arthropathy of left shoulder Alcohol use disorder MDD (major depressive disorder), recurrent severe, without psychosis No known health problems Functional capacity: independent ambulation Social History Household Members: None Housing: Homeless Do you presently have visiting nurse or other home services: No Alcohol intake: current Alcohol intake frequency: a few times a week Alcohol type: beer Patient Tobacco Use Status: Current everyday Tobacco user Tobacco use type: Cigarette Cigarette Packs Per Day: 1 Cigarettes Per Day: 20.0 Smoked in Last 30 Days: Yes Patient Interested in Nicotine Replacement: Yes Second Hand Smoke Exposure: No Use of substances other than those prescribed or required for medical reasons: Yes Substance Use Type: Marijuana Substance Use Frequency: Chronic Longstanding Last Used Substance: Just Prior to Admission Currently Displaying Signs/Symptoms of Drug Intoxication Withdrawal: No Advance Directives: No Advance Directives Information Provided: Yes Do you have thoughts of harming others: None Do you have a plan to hurt others: No Plan Recently lost weight without trying: Unsure Nutrition Risks: No Nutritional Risk service: No Current occupational status: employed 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, 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 Sexual orientation: Straight/Heterosexual Meds Allergies Allergy/AdvReac Type Severity Reaction Status Date / Time No Known Allergies Allergy Verified 02/27/25 03:50 Active Medications: Current Medications Acetaminophen (Acetaminophen 325 Mg Tablet) 650 mg PO Q6H PRN PRN Reason: Headache/Pain, Scale 1-10 Al Hydroxide/Mg Hydroxide (Magnesium Hydrox/Alum Hydrox 30 Ml Oral.Susp) 30 ml PO Q6H PRN PRN Reason: Heartburn/Nausea Bupropion HCl (Bupropion Hcl Xl 300 Mg Tab.Er.24h) 300 mg PO DAILY [facility] Last Admin: 02/28/25 08:26 Dose: 300 mg Cyclobenzaprine HCl (Cyclobenzaprine Hcl 10 Mg Tablet) 10 mg PO Q12H PRN PRN Reason: Pain (Scale Score 4-6) Last Admin: 02/27/25 20:47 Dose: 10 mg Gabapentin (Gabapentin 100 Mg Capsule) 100 mg PO TID [facility] Last Admin: 02/28/25 08:26 Dose: 100 mg Hydroxyzine HCl (Hydroxyzine Hcl 25 Mg Tablet) 25 mg PO Q6H PRN PRN Reason: mild anxiety Magnesium Hydroxide (Milk Of Magnesia 30 Ml Oral.Susp) 30 ml PO DAILY PRN PRN Reason: Constipation Nicotine (Nicotine 21 Mg Patch.Td24) 21 mg TRANSDERMA DAILY PRN PRN Reason: smoking cessation Last Admin: 02/28/25 08:26 Dose: 21 mg Nicotine Polacrilex (Nicotine Polacrilex 2 Mg Gum) 4 mg BUCCAL Q2H PRN PRN Reason: Nicotine Cravings Olanzapine (Olanzapine 5 Mg Tablet) 5 mg PO TID PRN PRN Reason: agitation Quetiapine Fumarate (Quetiapine Fumarate 400 Mg Tablet) 400 mg PO BEDTIME [facility] Last Admin: 02/27/25 20:48 Dose: Not Given Trazodone HCl (Trazodone Hcl 50 Mg Tablet) 50 mg PO BEDTIME MRX1 PRN PRN Reason: Insomnia Last Admin: 02/27/25 20:48 Dose: 50 mg Home Medications ?Medication ?Instructions ?Recorded ?Confirmed ?Last Taken ?Type bupropion HCl 300 mg 24 hr tablet, 300 mg PO DAILY 02/27/25 02/27/25 02/22/25 History extended release (Wellbutrin XL) cyclobenzaprine 10 mg tablet 10 mg PO Q12H PRN Pain (Scale 02/27/25 02/27/25 02/23/25 History Score 4-6) gabapentin 100 mg capsule 100 mg PO TID 02/27/25 02/27/25 02/22/25 History (Neurontin) nicotine 14 mg/24 hr daily 1 patch transdermal DAILY 02/27/25 02/27/25 02/22/25 History transdermal patch (Nicoderm CQ) quetiapine 400 mg tablet 400 mg PO BEDTIME 02/27/25 02/27/25 02/23/25 History Physical Exam Vital Signs and Narrative: Vital Signs: Last Vital Signs Temp 97.8 F 02/28/25 07:48 Pulse 69 02/28/25 07:48 Resp 16 02/27/25 06:00 BP 100/64 02/28/25 07:48 Pulse Ox 98 02/28/25 07:48 O2 Del Method Room Air 02/28/25 07:48 BMI result Body Mass Index 22.1 CONST: Alert and oriented, in NAD. Well nourished HEENT: Normocephalic, atraumatic, MMM, Eyes clear, Neck supple RESP: Lungs clear, RRR even and regular HEART:,RRR, S1, S2. No murmur, no edema GI:Abdomen Soft NT, ND. + BS times four :Deferred SKIN: Warm dry and intact, Soft movable lump approximately 3-4 cm round, no redness, warmth or swelling. No pain to area. Area is movable and soft. NEURO:CN II-XII Intact bilaterally, Sensation intact. Speech clear PSYCH: Flat affect, quiet Results Labs 02/27/25 04:25 02/28/25 08:12 Labs: Laboratory Results - last 24 hr 02/28/25 08:12 Anion Gap 11 L Estim Creat Clear Calc 114.1 Estimated GFR > 60 Random Glucose 90 Estimat Average Glucose 97 Hemoglobin A1c % 5.0 Calcium 9.1 Total Bilirubin 0.8 AST 26 ALT 22 Alkaline Phosphatase 72 Total Protein 6.5 Albumin 3.8 Triglycerides 187 H Cholesterol 240 H LDL Cholesterol, Calc 154 H HDL Cholesterol 49 TSH 1.62 Assessment and Plan (1) Lipoma of arm: Status: Acute Plan Lipoma Area without pain or evidence of infection Will need out patient surgical appointment if he wishes to pursue removal MDD, PTSD, complicated grieving, and alcohol use disorder Treatment per psych team Medical consult complete, please reconsult as needed.
[2025-02-28 19:35] VITALS: BP 128/77; PULSE 103; TEMP 37.2; O2SAT 95
[2025-02-28] MEDS: Cyclobenzaprine HCl 10 MG TABLET PO (20:54)
[2025-02-28] MEDS: traZODone HCL 50 MG TABLET PO (20:54)
[2025-02-28] MEDS: Prazosin HCL 1 MG CAPSULE PO (20:54)
[2025-02-28] MEDS: hydrOXYzine HCL 25 MG TABLET PO (20:54)
[2025-03-01 08:08] VITALS: BP 121/79; PULSE 98; TEMP 36.9; O2SAT 100
[2025-03-01] MEDS: Gabapentin 100 MG CAPSULE PO ×3 (08:55→22:35)
[2025-03-01] MEDS: buPROPion HCl XL 300 MG TAB.ER.24H PO (08:55)
[2025-03-01] MEDS: Nicotine 21 MG PATCH.TD24 TRANSDERMA (09:04)
[2025-03-01 09:14] VITALS: BMI 25.1
[2025-03-01] MEDS: hydrOXYzine HCL 25 MG TABLET PO ×2 (11:22→22:35)
[2025-03-01] MEDS: Acetaminophen 325 MG TABLET 650 MG PO (11:22)
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
[2025-03-01] MEDS: Cyclobenzaprine HCl 10 MG TABLET PO (15:05)
[2025-03-01] MEDS: OLANZapine 5 MG TABLET PO ×2 (15:06→22:35)
[2025-03-01 19:43] VITALS: BP 111/80; PULSE 102; RESP 16; TEMP 37.1; O2SAT 96
[2025-03-01 22:31] VITALS: BP 119/76
[2025-03-01] MEDS: Prazosin HCL 1 MG CAPSULE PO (22:31)
[2025-03-01] MEDS: traZODone HCL 50 MG TABLET PO (22:35)
--- NOTE | 2025-03-01 22:46 | PC.NURSE ---
Patient refused scheduled Seroquel 400 mg po, due to a side effect of restless legs.
[2025-03-02 08:04] VITALS: BP 90/58; PULSE 89; TEMP 36.4; O2SAT 93
[2025-03-02] MEDS: Gabapentin 100 MG CAPSULE PO ×3 (08:43→23:05)
[2025-03-02] MEDS: hydrOXYzine HCL 25 MG TABLET PO ×2 (08:43→13:31)
[2025-03-02] MEDS: buPROPion HCl XL 300 MG TAB.ER.24H PO (08:43)
[2025-03-02] MEDS: Nicotine 21 MG PATCH.TD24 TRANSDERMA (08:44)
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
[2025-03-02] MEDS: OLANZapine 5 MG TABLET PO (14:32)
[2025-03-02] MEDS: Cyclobenzaprine HCl 10 MG TABLET PO (14:32)
[2025-03-02] MEDS: Acetaminophen 325 MG TABLET 650 MG PO (14:33)
[2025-03-02 20:00] VITALS: BP 123/88; PULSE 112; TEMP 36.2; O2SAT 97
[2025-03-02] MEDS: OLANZapine 10 MG TABLET 20 MG PO (23:02)
[2025-03-02] MEDS: traZODone HCL 50 MG TABLET PO (23:04)
[2025-03-02 23:05] VITALS: BP 123/88
[2025-03-02] MEDS: Prazosin HCL 1 MG CAPSULE PO (23:05)
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
[2025-03-03 08:00] VITALS: BP 101/65; PULSE 97; RESP 16; TEMP 36.5; O2SAT 96
[2025-03-03] MEDS: Nicotine 21 MG PATCH.TD24 TRANSDERMA (08:58)
[2025-03-03] MEDS: OLANZapine 5 MG TABLET PO ×2 (08:59→18:04)
[2025-03-03] MEDS: Gabapentin 100 MG CAPSULE PO ×3 (08:59→23:18)
[2025-03-03] MEDS: buPROPion HCl XL 300 MG TAB.ER.24H PO (08:59)
[2025-03-03] MEDS: Cyclobenzaprine HCl 10 MG TABLET PO (09:00)
[2025-03-03] MEDS: hydrOXYzine HCL 25 MG TABLET PO ×2 (09:00→18:04)
[2025-03-03] MEDS: Acetaminophen 325 MG TABLET 650 MG PO (15:38)
[2025-03-03 20:00] VITALS: BP 133/74; PULSE 110; TEMP 36.7; O2SAT 98
[2025-03-03] MEDS: Prazosin HCL 1 MG CAPSULE PO (23:16)
[2025-03-03] MEDS: traZODone HCL 100 MG TABLET PO (23:17)
[2025-03-03] MEDS: OLANZapine 10 MG TABLET 20 MG PO (23:17)
[2025-03-04] MEDS: Acetaminophen 325 MG TABLET 650 MG PO (01:58)
[2025-03-04] MEDS: traZODone HCL 100 MG TABLET PO (01:59)
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
[2025-03-04 08:00] VITALS: BP 102/69; PULSE 87; RESP 18; TEMP 36.4; O2SAT 97
[2025-03-04] MEDS: Gabapentin 100 MG CAPSULE PO ×3 (09:02→20:13)
[2025-03-04] MEDS: buPROPion HCl XL 300 MG TAB.ER.24H PO (09:02)
[2025-03-04] MEDS: Nicotine 21 MG PATCH.TD24 TRANSDERMA (09:06)
[2025-03-04] MEDS: hydrOXYzine HCL 25 MG TABLET PO (14:25)
[2025-03-04 19:39] VITALS: BP 105/51; PULSE 126; RESP 18; TEMP 36.8; O2SAT 100
[2025-03-04] MEDS: OLANZapine 10 MG TABLET 20 MG PO (20:13)
[2025-03-04] MEDS: Cyclobenzaprine HCl 10 MG TABLET PO (20:13)
[2025-03-04] MEDS: Mirtazapine 15 MG TABLET PO (20:13)
[2025-03-04] MEDS: Prazosin HCL 1 MG CAPSULE PO (20:14)
[2025-03-05 08:00] VITALS: BP 91/60; PULSE 81; RESP 18; TEMP 36.3; O2SAT 97
[2025-03-05] MEDS: Gabapentin 100 MG CAPSULE PO ×3 (08:50→20:07)
[2025-03-05] MEDS: Nicotine 21 MG PATCH.TD24 TRANSDERMA (08:51)
[2025-03-05] MEDS: buPROPion HCl XL 300 MG TAB.ER.24H PO (08:51)
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
[2025-03-05] MEDS: hydrOXYzine HCL 25 MG TABLET PO (14:11)
[2025-03-05 19:50] VITALS: BP 153/95; PULSE 111; TEMP 36.3; O2SAT 95
[2025-03-05] MEDS: Prazosin HCL 1 MG CAPSULE PO (20:06)
[2025-03-05] MEDS: Mirtazapine 15 MG TABLET PO (20:06)
[2025-03-05] MEDS: OLANZapine 10 MG TABLET 20 MG PO (20:07)
[2025-03-06 08:00] VITALS: BP 103/71; PULSE 85; RESP 18; TEMP 36.4; O2SAT 97
[2025-03-06] MEDS: Nicotine 21 MG PATCH.TD24 TRANSDERMA (09:06)
[2025-03-06] MEDS: Gabapentin 100 MG CAPSULE PO (09:07)
[2025-03-06] MEDS: buPROPion HCl XL 300 MG TAB.ER.24H PO (09:07)
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
== END 2025-03-06 10:44 | disposition home or self-care (01) | DRG 751 ==
LOC: HO.ED 11:59 → HO.PM5 15:25
PROVIDERS: Admitting Provider Psychiatry & Neurology Psychiatry; Emergency Provider Emergency Medicine Emergency Medical Services; Visit Provider Psychiatry & Neurology Psychiatry
DX: F33.2 Major depressive disorder, recurrent severe without psychotic features (principal); R45.851 Suicidal ideations; D17.20 Benign lipomatous neoplasm of skin and subcutaneous tissue of unspecified limb; Z59.02 Unsheltered homelessness; F43.81 Prolonged grief disorder; F43.10 Post-traumatic stress disorder, unspecified; G89.4 Chronic pain syndrome; F17.210 Nicotine dependence, cigarettes, uncomplicated; Z63.4 Disappearance and death of family member; Z71.6 Tobacco abuse counseling; Z79.899 Other long term (current) drug therapy
CPT/HCPCS: 36415; 80053; 80061; 80307; 81003; 83036; 84443; 85025; 93005; 99285; S9485

== ENCOUNTER → 2025-02-27 10:14 | Outpatient (BNV) | payer OTHER, SELFPAY | PROVIDERS: Admitting Provider Psychiatry & Neurology Psychiatry; Emergency Provider Emergency Medicine Emergency Medical Services; Visit Provider Internal Medicine | DX: I49.9 Cardiac arrhythmia, unspecified (principal); I45.10 Unspecified right bundle-branch block | CPT/HCPCS: 93010 ==

== ENCOUNTER → 2025-02-27 15:09 | Outpatient (BNV) | payer MEDICAID, SELFPAY | PROVIDERS: Admitting Provider Psychiatry & Neurology Psychiatry; Emergency Provider Emergency Medicine Emergency Medical Services; Visit Provider Nurse Practitioner Family | DX: D17.20 Benign lipomatous neoplasm of skin and subcutaneous tissue of unspecified limb (principal) | CPT/HCPCS: 99231 ==

== ENCOUNTER → 2025-02-27 15:09 | Outpatient (BNV) | payer OTHER, SELFPAY | PROVIDERS: Admitting Provider Psychiatry & Neurology Psychiatry; Emergency Provider Emergency Medicine Emergency Medical Services; Visit Provider Nurse Practitioner Family | DX: F33.2 Major depressive disorder, recurrent severe without psychotic features (principal); F43.81 Prolonged grief disorder; F43.11 Post-traumatic stress disorder, acute; Z59.00 Homelessness unspecified; G89.4 Chronic pain syndrome | CPT/HCPCS: 99232 ==

== ENCOUNTER 2025-04-02 19:31 | Inpatient (IN) | payer OTHER, SELFPAY ==
--- NOTE | ~2025-04-02 | CT_ITS ---
CLINICAL HISTORY: trauma neck pain CT cervical spine without contrast Comparison: CT/SR - CT CERVICAL SPINE WO IV CON - 11/27/24 19:17 EST Findings: Straightening of normal cervical lordosis on degenerative basis. Grade 1 anterolisthesis of C4 on C5 on degenerative basis. Moderate multilevel spondylosis with disc space narrowing, osteophytosis, and facet arthropathy No acute fractures or dislocations. Visualized intracranial contents are unremarkable. No cervical fluid collections or masses. No consolidation or effusion at the lung apices. IMPRESSION: No evidence of acute fracture or traumatic listhesis of the cervical spine. Moderate multilevel spondylosis with grade 1 anterolisthesis of C4 on C5. This document has been electronically signed by: Blake Hicks MD on 04/02/2025 23:09:50
--- NOTE | ~2025-04-02 | XR_ITS ---
CLINICAL HISTORY: trauma 3 view right shoulder Comparison: CR - XR SHOULDER RT MIN 2V - 11/27/24 17:43 EST Findings: No fractures or dislocations. No significant loss of joint space or osteophytes. No erosions. No radiopaque foreign body. IMPRESSION: 1. No acute findings This document has been electronically signed by: Blake Hicks MD on 04/02/2025 21:52:02
--- NOTE | ~2025-04-02 | CT_ITS ---
CLINICAL HISTORY: trauma CT head without contrast Comparison: CT/SR - CT HEAD/BRAIN WO IV CON - 01/25/25 11:17 EDT Findings: No intra-axial mass, midline shift, hydrocephalus, or acute hemorrhage. Mild atrophy-like change or white matter disease. Chronic left occipital lobe infarct. There is no sinus or mastoid fluid. The orbits are within normal limits. There is no acute fracture. IMPRESSION: 1. No acute intracranial findings specifically, no acute intracranial hemorrhage. 2. Chronic left occipital lobe infarct. This document has been electronically signed by: Blake Hicks MD on 04/02/2025 21:46:19
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
[2025-04-02 19:49] VITALS: BP 129/87; PULSE 100; RESP 19; TEMP 36.6; O2SAT 99; BMI 25.1
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
[2025-04-02 20:15] VITALS: BP 139/91; PULSE 104; RESP 17; TEMP 36.4; O2SAT 95
[2025-04-02 20:34] LABS: MANUAL DIFF FLAG NO
[2025-04-02 20:35] LABS: Basophils Absolute Auto 0.1 X10*3/uL (0.0-0.2); Basophils Percent Auto 0.5 % (0-2); Eosinophils Absolute Auto 0.2 X10*3/uL (0.0-0.4); Eosinophils Percent Auto 1.4 % (0-4); Hematocrit 44.7 % (42.0-52.0); Hemoglobin 15.8 g/dl (14.0-18.0); Imm Gran Abs Auto 0.06 X10*3/uL (0.00-0.03); Imm Gran Pct Auto 0.4 % (0.0-0.4); Lymphocytes Absolute Auto 2.3 X10*3/uL (1.2-4.9); Lymphocytes Percent Auto 14.8 % (20-40); Mean Corpuscular HGB Conc 35.3 g/dl (31.0-36.0); Mean Corpuscular Hemoglobin 33.7 pg (27.0-33.0); Mean Corpuscular Volume 95.3 fL (80.0-98.0); Mean Platelet Volume 9.4 fL (9.4-12.4); Monocytes Absolute Auto 1.1 X10*3/uL (0.1-1.2); Neutrophils Absolute Auto 11.6 x10*3/uL (2.0-8.3); Neutrophils Percent Auto 75.9 % (45-73); Platelet Count 293 X10*3/uL (160-400); Red Blood Count 4.69 X10*6/uL (4.60-5.80); Red Cell Distribution Width 13.6 % (11.0-16.0); White Blood Count 15.2 X10*3/uL (4.8-10.8)
[2025-04-02 20:49] LABS: Appearance Urine Clear; Color Urine Dark Yellow; Glucose Urine UA Negative (Negative); Leukocyte Esterase Urine Trace (Negative); Nitrite Urine Negative (Negative); PH 6.5 (5.0-9.0); Specific Gravity - Urine 1.025 (1.005-1.025); UMIC TRIGGER UA YES; Urine Blood Negative (Negative); Urine Ketones 15 mg/dL (Negative); Urine Protein Trace mg/dL (Neg-Trace)
[2025-04-02 20:49] LABS: Alanine Aminotransferase 27 U/L (0-40); Albumin Level 4.6 g/dL (3.5-5.0); Alkaline Phosphatase 92 U/L (39-117); Anion Gap 14 (12-20); Aspartate Amino Transferase 34 U/L (5-37); Bilirubin Total 0.8 mg/dL (0.0-1.0); Blood Urea Nitrogen 14 mg/dL (9-16); Calcium 9.6 mg/dL (8.4-10.2); Carbon Dioxide 26 mmol/L (22-29); Chloride 104 mmol/L (96-108); Creatinine Clr Calc Pharmacy 112.4; Estimated Glomerular Filt Rate > 60; Ethanol < 10 mg/dL; Glucose Random 88 mg/dL (60-115); Potassium 4.7 mmol/L (3.3-5.1); Sodium 139 mmol/L (135-145); Total Protein 7.1 g/dL (6.5-8.0)
[2025-04-02 20:56] LABS: Bacteria Urine None Seen (None Seen); Hyaline Casts Urine 0-2 /LPF (0-2); RBC Urine 0-2 /HPF (0-2); Squamous Epithelial Cell Urine 0-2 /HPF (0-2); WBC Urine 0-5 /HPF (0-5)
[2025-04-02 21:00] LABS: Acetaminophen LAB < 3 mcg/mL (<30); Salicylate < 5.0 mg/dL (15-30)
[2025-04-02 21:01] LABS: Amphetamine Screen Urine Not Detected (Not Detect); Barbiturates, Urine Not Detected (Not Detect); Benzodiazepines Screen Urine Not Detected (Not Detect); Buprenorphine Scr Not Detected (Not Detect); Cannabinoid Screen Urine POSITIVE (Not Detect); Cocaine Screen Urine Not Detected (Not Detect); Fentanyl, urine Not Detected (Not Detect); Methadone Screen, Urine Not Detected (Not Detect); Opiate Screen Urine Not Detected (Not Detect); Oxycodone Screen Urine Not Detected (Not Detect); Phencyclidine Screen Urine Not Detected (Not Detect)
--- OUTSIDE RECORDS SUMMARY | 2025-04-02 21:18 | XMS_ITS | Encounter Summary ---
Author Organization [facility] Address [address] [place] [address] Care Team Providers Care Green Ware Caster Name Role Phone Physician, No Pcp Primary Care Provider Unavaila ble Encounter Details Date Type Department Care Team (Late st Contact Info) Description 02/06/2025 Lab Requisition [facility] - Main Lab [address] [place] [address] Ayleen Larson, [place] [facility] [address] [place] [address] Social History Tobacco Use Types Packs/Day Years Used Date Smoking Tobacco: Never Assessed Sex and Gender Information Value Date Recorded Sex Assigned at Male 02/04/2025 12:46 PM EDT Legal Sex Male 11:27 AM EDT Gender Identity Male 02/04/2025 12:46 PM EDT Sexual Orientation Straight 02/04/2025 12 :46 PM EDT documented as of this encounter Functional Status * Are you deaf or do you have serious difficulty hearing? Answer Date of Assessment Author No 02/04/2025 12:11 PM EDT Michale Kaye RN * Are you blind or do you have serious difficulty seeing, even when wearing glasses? Answer Date of Assessment Author No 02/04/2025 12:11 PM EDT Michael Kaye RN * Do you have serious difficulty walking or climbing stairs? Answer Date of Assessment Author No 02/04/2025 12:11 PM EDT Michael Kaye RN * Do you have serious difficulty dressing or bathing? Answer Date of Assessment Author No 02/04/2025 12:11 PM EDT Michael Kaye RN * Because of a physical, mental, or emotional condition, do you have serious difficulty doing errandsalone such as visiting the doctor? Answer Date of Assessment Author No 02/04/2025 12:11 PM EDT Michael Kaye RN documented as of this encounter Mental Status * Because of a physical, mental, or emotional condition, do you have serious difficulty concentrating, remembering, or making decisions? (5 years old or older) Answer Entry Date Author No 02/04/2025 12:11 PM EDT Michael Kaye RN documented in this encounter Plan of Treatment Scheduled Orders Name Type Priority Associated Diagnoses Orde r Schedule CBC and differential Lab Routine Orde red: 02/06/2025 Basic metabolic panel Lab Routine Ord ered: 02/06/2025 documented as of this encounter Visit Diagnoses Not on filedocumented in this encounter Care Teams Green Ware Caster Relationship Specialty Start Date End Date Physician, No Pcp PCP - General 02/04/25 documented as of this encounter
--- NOTE | 2025-04-03 | ECG_ITS ---
Test Reason : CHECK PROLONG QT Blood Pressure : */* mmHG Vent. Rate : 61 BPM Atrial Rate : 61 BPM P-R Int : 126 ms QRS Dur : 92 ms QT Int : 406 ms P-R-T Axes : 50 64 73 degrees QTcB Int : 408 ms Normal sinus rhythm with sinus arrhythmia Normal ECG When compared with ECG of 27-Feb-2025 11:33, QRS axis Shifted right Referred By: Toya Padron Electronically Signed By: LYNNE HOROWITZ MD
[2025-04-03 06:40] VITALS: BP 118/85; PULSE 66; RESP 17; TEMP 36.9; O2SAT 96
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
[2025-04-03] MEDS: Gabapentin 100 MG CAPSULE PO ×3 (10:10→20:32)
--- NOTE | 2025-04-03 12:31 | PC.NURSE ---
Report given to Marizol STEVENS. Patient to transition to [facility]3 for further mental health care.
[2025-04-03 13:29] VITALS: BP 135/94; PULSE 85; RESP 18; TEMP 36.6; O2SAT 96
[2025-04-03 13:38] VITALS: BMI 24.8
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
--- NOTE | 2025-04-03 18:07 | PC.NURSE ---
Valerie Neff APRN authorized late administration of Gabapentin.
[2025-04-03 20:10] VITALS: BP 112/79; PULSE 77; RESP 18; TEMP 37.2; O2SAT 96
[2025-04-03 20:32] VITALS: BP 112/79
[2025-04-03] MEDS: Prazosin HCL 1 MG CAPSULE PO (20:32)
[2025-04-03] MEDS: OLANZapine 10 MG TABLET 20 MG PO (20:32)
[2025-04-03] MEDS: Mirtazapine 15 MG TABLET PO (20:32)
[2025-04-03] MEDS: hydrOXYzine HCL 25 MG TABLET PO (20:54)
[2025-04-03] MEDS: Ibuprofen 600 MG TABLET PO (20:55)
[2025-04-03] MEDS: Cyclobenzaprine HCl 10 MG TABLET PO (20:58)
[2025-04-04 08:00] VITALS: BP 104/74; PULSE 78; RESP 16; TEMP 36.4; O2SAT 98
[2025-04-04] MEDS: Thiamine HCL 100 MG TABLET PO (08:50)
[2025-04-04] MEDS: Gabapentin 100 MG CAPSULE PO ×3 (08:50→21:02)
[2025-04-04 12:10] VITALS: BP 115/76; PULSE 98; RESP 16; TEMP 36.8; O2SAT 97
--- NOTE | 2025-04-04 13:41 | HO.PSYCHPN ---
Subjective Subjective Date of Service: 04/04/25 Reason For Visit: SI Interim History: Keeping to self. Pt reports feeling anxious and not sleeping well last night. per nursing, slept 8 hours. denies withdrawal symptoms; not scoring on CIWA. He reports his body feeling sore ;encouraged to utilized PRN medications. continue current tx plan. Medication Compliance: Yes Side effects from medications: No Attending Groups: No Mental Status Exam Mental Status Exam Patient Appearance: Well Grooomed Patient Orientation: Person, Place, Time and Situation Level of Consciousness: Awake and Alert Patient Behavior: Appropriate, Cooperative and Good Eye Contact Mood Description: Depressed and Anxious Affect Description: Depressed Ability to Follow Directions: Good Speech Pattern: Clear and Appropriate Memory Description: Intact Hallucinations: None Delusions: Not Present Thought Process: Intact Thought Content: positive for Intact Diagnostics Vital Signs (24Hr): Vital Signs - 24 hr 04/03/25 20:10 04/03/25 20:32 04/04/25 08:00 Temperature 98.9 F 97.6 F Pulse Rate 77 78 Respiratory Rate 18 16 Blood Pressure 112/79 112/79 104/74 Pulse Oximetry 96 98 Oxygen Delivery Method Room Air Room Air 04/04/25 12:10 Temperature 98.2 F Pulse Rate 98 Respiratory Rate 16 Blood Pressure 115/76 Pulse Oximetry 97 Oxygen Delivery Method Room Air BMI result Body Mass Index 24.8 Labs 04/02/25 20:29 04/02/25 20:28 Labs: Laboratory Results - last 48 hr 04/02/25 04/02/25 04/02/25 16:32 20:28 20:29 WBC 15.2 H RBC 4.69 Hgb 15.8 Hct 44.7 MCV 95.3 MCH 33.7 H MCHC 35.3 RDW 13.6 Plt Count 293 MPV 9.4 Immature Gran % (Auto) 0.4 Neut % (Auto) 75.9 H Lymph % (Auto) 14.8 L [place] % (Auto) 7.0 Eos % (Auto) 1.4 Baso % (Auto) 0.5 Lymph # (Auto) 2.3 [place] # (Auto) 1.1 Eos # (Auto) 0.2 Baso # (Auto) 0.1 Abs Immat Gran (auto) 0.06 H Absolute Neuts (auto) 11.6 H Absolute Nucleated RBC 0.000 Nucleated RBC % (auto) 0.0 Sodium 139 Potassium 4.7 Chloride 104 Carbon Dioxide 26 Anion Gap 14 BUN 14 Creatinine 0.76 Estim Creat Clear Calc 112.4 Estimated GFR > 60 Random Glucose 88 Calcium 9.6 Total Bilirubin 0.8 AST 34 ALT 27 Alkaline Phosphatase 92 Total Protein 7.1 Albumin 4.6 Urine Color Dark Yellow Urine Appearance Clear Urine pH 6.5 Ur Specific [place] 1.025 Urine Protein Trace Urine Glucose (UA) Negative Urine Ketones 15 Urine Blood Negative Urine Nitrite Negative Ur Leukocyte Esterase Trace H Urine RBC 0-2 Urine WBC 0-5 Ur Squamous Epith Cells 0-2 Urine Bacteria None Seen Hyaline Casts 0-2 Salicylates < 5.0 L Urine Opiates Screen Ur Buprenorphine Scrn Ur Oxycodone Screen Urine Methadone Screen Urine Fentanyl Screen Acetaminophen < 3 Ur Barbiturates Screen Ur Phencyclidine Scrn Ur Amphetamines Screen U Benzodiazepines Scrn Urine Cocaine Screen U Marijuana (THC) Screen Ethyl Alcohol < 10 04/02/25 20:38 WBC RBC Hgb Hct MCV MCH MCHC RDW Plt Count MPV Immature Gran % (Auto) Neut % (Auto) Lymph % (Auto) [place] % (Auto) Eos % (Auto) Baso % (Auto) Lymph # (Auto) [place] # (Auto) Eos # (Auto) Baso # (Auto) Abs Immat Gran (auto) Absolute Neuts (auto) Absolute Nucleated RBC Nucleated RBC % (auto) Sodium Potassium Chloride Carbon Dioxide Anion Gap BUN Creatinine Estim Creat Clear Calc Estimated GFR Random Glucose Calcium Total Bilirubin AST ALT Alkaline Phosphatase Total Protein Albumin Urine Color Urine Appearance Urine pH Ur Specific [place] Urine Protein Urine Glucose (UA) Urine Ketones Urine Blood Urine Nitrite Ur Leukocyte Esterase Urine RBC Urine WBC Ur Squamous Epith Cells Urine Bacteria Hyaline Casts Salicylates Urine Opiates Screen Not Detected Ur Buprenorphine Scrn Not Detected Ur Oxycodone Screen Not Detected Urine Methadone Screen Not Detected Urine Fentanyl Screen Not Detected Acetaminophen Ur Barbiturates Screen Not Detected Ur Phencyclidine Scrn Not Detected Ur Amphetamines Screen Not Detected U Benzodiazepines Scrn Not Detected Urine Cocaine Screen Not Detected U Marijuana (THC) Screen POSITIVE H Ethyl Alcohol Medications Medications Current Medications Acetaminophen (Acetaminophen 325 Mg Tablet) 650 mg PO Q6H PRN PRN Reason: Headache/Pain, Scale 1-10 Al Hydroxide/Mg Hydroxide (Magnesium Hydrox/Alum Hydrox 30 Ml Oral.Susp) 30 ml PO Q6H PRN PRN Reason: Heartburn/Nausea Cyclobenzaprine HCl (Cyclobenzaprine Hcl 10 Mg Tablet) 10 mg PO BID PRN PRN Reason: muscle aches Last Admin: 04/03/25 20:58 Dose: 10 mg Gabapentin (Gabapentin 100 Mg Capsule) 100 mg PO TID AUTUMN Last Admin: 04/04/25 08:50 Dose: 100 mg Hydroxyzine HCl (Hydroxyzine Hcl 25 Mg Tablet) 25 mg PO Q6H PRN PRN Reason: mild anxiety Last Admin: 04/03/25 20:54 Dose: 25 mg Ibuprofen (Ibuprofen 600 Mg Tablet) 600 mg PO Q6H PRN PRN Reason: Pain, Mild 1-3,fever,headache Last Admin: 04/03/25 20:55 Dose: 600 mg Lidocaine (Lidocaine 4 % Patch Adh..Patch) 1 patch TRANSDERMA DAILY PRN; Protocol PRN Reason: Pain, Moderate(Pain Scale 4-6) Lorazepam (Lorazepam 1 Mg Tablet) 1 mg PO Q2H PRN PRN Reason: CIWA 8-11 Lorazepam (Lorazepam 1 Mg Tablet) 2 mg PO Q2H PRN PRN Reason: CIWA 12-15 Lorazepam (Lorazepam 1 Mg Tablet) 3 mg PO Q2H PRN PRN Reason: CIWA > 15, and call MD Magnesium Hydroxide (Milk Of Magnesia 30 Ml Oral.Susp) 30 ml PO DAILY PRN PRN Reason: Constipation Mirtazapine (Mirtazapine 15 Mg Tablet) 15 mg PO BEDTIME AUTUMN Last Admin: 04/03/25 20:32 Dose: 15 mg Nicotine (Nicotine 21 Mg Patch.Td24) 21 mg TRANSDERMA DAILY PRN PRN Reason: smoking cessation Nicotine Polacrilex (Nicotine Polacrilex 2 Mg Gum) 4 mg BUCCAL Q2H PRN PRN Reason: Nicotine Cravings Olanzapine (Olanzapine 10 Mg Tablet) 20 mg PO BEDTIME AUTUMN Last Admin: 04/03/25 20:32 Dose: 20 mg Prazosin HCl (Prazosin Hcl 1 Mg Capsule) 1 mg PO BEDTIME AUTUMN; Protocol Last Admin: 04/03/25 20:32 Dose: 1 mg Thiamine HCl (Thiamine Hcl 100 Mg Tablet) 100 mg PO DAILY AUTUMN Last Admin: 04/04/25 08:50 Dose: 100 mg Trazodone HCl (Trazodone Hcl 50 Mg Tablet) 50 mg PO BEDTIME MRX1 PRN PRN Reason: Insomnia Allergies Allergies Allergy/AdvReac Type Severity Reaction Status Date / Time quetiapine [From Seroquel] AdvReac Severe Restless Verified 04/02/25 19:53 legs Assessment & Plan Assessment & Plan (1) PTSD (post-traumatic stress disorder): Status: Acute Code(s): F43.10 - Post-traumatic stress disorder, unspecified (2) Homelessness: Status: Acute Code(s): Z59.00 - Homelessness unspecified (3) Alcohol use disorder: Status: Acute Code(s): F10.90 - Alcohol use, unspecified, uncomplicated (4) Prolonged high dose use of cannabis: Status: Acute Code(s): F12.90 - Cannabis use, unspecified, uncomplicated Plan ativan per CIWA protocol for AUD. restart home meds. neuro consult for chronic left occipital infarct. supportive care. aftercare planning. 04/04: Keeping to self. Pt reports feeling anxious and not sleeping well last night. per nursing, slept 8 hours. denies withdrawal symptoms; not scoring on CIWA. He reports his body feeling sore ;encouraged to utilized PRN medications. continue current tx plan. Patient educated on: diagnosis and medication risk/benefits Reason for continued inpatient stay Substantial Risk for: med/psych decompensation Time Spent With Patient Time: Total time managing care of this patient today _20___ minutes.
[2025-04-04] MEDS: Ibuprofen 600 MG TABLET PO (15:46)
[2025-04-04 15:48] VITALS: BP 125/76; PULSE 82; RESP 16; TEMP 37.1; O2SAT 98
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
[2025-04-04 20:10] VITALS: BP 124/85; PULSE 106; RESP 18; TEMP 36.8; O2SAT 98
[2025-04-04] MEDS: Prazosin HCL 1 MG CAPSULE PO (21:02)
[2025-04-04] MEDS: Mirtazapine 15 MG TABLET PO (21:02)
[2025-04-04] MEDS: OLANZapine 10 MG TABLET 20 MG PO (21:02)
[2025-04-05 07:00] VITALS: BMI 24.5
[2025-04-05 08:00] VITALS: BP 115/77; PULSE 102; TEMP 36.8; O2SAT 97
[2025-04-05] MEDS: Thiamine HCL 100 MG TABLET PO (08:30)
[2025-04-05] MEDS: Gabapentin 100 MG CAPSULE PO (08:30)
[2025-04-05] MEDS: Ibuprofen 600 MG TABLET PO ×2 (08:30→19:54)
[2025-04-05] MEDS: Cyclobenzaprine HCl 10 MG TABLET PO (10:13)
[2025-04-05] MEDS: hydrOXYzine HCL 25 MG TABLET PO (10:18)
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
[2025-04-05] MEDS: Gabapentin 300 MG CAPSULE PO ×2 (16:19→21:21)
[2025-04-05 19:30] VITALS: BP 121/81; PULSE 121; RESP 16; TEMP 36.7; O2SAT 97
[2025-04-05] MEDS: Acetaminophen 325 MG TABLET 650 MG PO (19:54)
[2025-04-05] MEDS: Mirtazapine 15 MG TABLET PO (21:21)
[2025-04-05 21:22] VITALS: BP 103/75
[2025-04-05] MEDS: OLANZapine 10 MG TABLET 20 MG PO (21:22)
[2025-04-05] MEDS: Prazosin HCL 1 MG CAPSULE PO (21:22)
[2025-04-06 07:35] VITALS: BP 116/64; PULSE 88; RESP 16; TEMP 36.8; O2SAT 98
[2025-04-06] MEDS: Gabapentin 300 MG CAPSULE PO (08:57)
[2025-04-06] MEDS: Thiamine HCL 100 MG TABLET PO (08:57)
[2025-04-06] MEDS: Ibuprofen 600 MG TABLET PO (09:03)
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
[2025-04-06] MEDS: hydrOXYzine HCL 25 MG TABLET PO (15:42)
[2025-04-06] MEDS: Gabapentin 300 MG CAPSULE 600 MG PO ×2 (15:42→21:34)
[2025-04-06] MEDS: Cyclobenzaprine HCl 10 MG TABLET PO (20:57)
[2025-04-06] MEDS: Nicotine 21 MG PATCH.TD24 TRANSDERMA (20:58)
[2025-04-06] MEDS: Acetaminophen 325 MG TABLET 650 MG PO (20:58)
[2025-04-06] MEDS: Lidocaine 4 % Patch ADH..PATCH 1 PATCH TRANSDERMA (21:00)
[2025-04-06 21:25] VITALS: BP 114/74; PULSE 81; RESP 16; TEMP 36.9; O2SAT 94
[2025-04-06] MEDS: Mirtazapine 7.5 MG TABLET 22.5 MG PO (21:34)
[2025-04-06] MEDS: Prazosin HCL 1 MG CAPSULE PO (21:34)
[2025-04-06] MEDS: OLANZapine 10 MG TABLET 20 MG PO (21:34)
[2025-04-07 08:03] VITALS: BP 108/66; PULSE 97; RESP 16; TEMP 36.8; O2SAT 97
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
[2025-04-07] MEDS: Thiamine HCL 100 MG TABLET PO (09:30)
[2025-04-07] MEDS: Gabapentin 300 MG CAPSULE 600 MG PO ×3 (09:30→21:29)
[2025-04-07] MEDS: hydrOXYzine HCL 25 MG TABLET PO (19:34)
[2025-04-07 20:00] VITALS: BP 127/68; PULSE 104; RESP 16; TEMP 37.2; O2SAT 95
[2025-04-07] MEDS: Acetaminophen 325 MG TABLET 650 MG PO (21:27)
[2025-04-07] MEDS: Mirtazapine 7.5 MG TABLET 22.5 MG PO (21:28)
[2025-04-07] MEDS: Ibuprofen 600 MG TABLET PO (21:29)
[2025-04-07] MEDS: OLANZapine 10 MG TABLET 20 MG PO (21:29)
[2025-04-07] MEDS: Prazosin HCL 1 MG CAPSULE PO (21:29)
[2025-04-07] MEDS: Lidocaine 4 % Patch ADH..PATCH 1 PATCH TRANSDERMA (21:30)
[2025-04-07] MEDS: Nicotine Polacrilex 2 MG GUM 4 MG BUCCAL (21:33)
--- NOTE | 2025-04-08 | PC.NURSE ---
AT 212 patient reported some right sided rib pain and bilateral shoulder pain 6-05/03. Patient requested both ibuprofen and acetaminophen together.
[2025-04-08 08:00] VITALS: BP 98/59; PULSE 81; TEMP 36.6; O2SAT 96
[2025-04-08 08:30] VITALS: BP 106/62
[2025-04-08] MEDS: Gabapentin 300 MG CAPSULE 600 MG PO ×3 (09:00→21:52)
[2025-04-08] MEDS: Thiamine HCL 100 MG TABLET PO (09:00)
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
[2025-04-08] MEDS: Ibuprofen 600 MG TABLET PO (19:26)
[2025-04-08] MEDS: Lidocaine 4 % Patch ADH..PATCH 1 PATCH TRANSDERMA (19:27)
[2025-04-08 19:35] VITALS: BP 127/87; PULSE 89; RESP 16; TEMP 36.5; O2SAT 97
[2025-04-08 21:52] VITALS: BP 113/77
[2025-04-08] MEDS: Prazosin HCL 1 MG CAPSULE PO (21:52)
[2025-04-08] MEDS: OLANZapine 10 MG TABLET 20 MG PO (21:52)
[2025-04-08] MEDS: Mirtazapine 7.5 MG TABLET 22.5 MG PO (21:52)
[2025-04-09] MEDS: traZODone HCL 50 MG TABLET PO (00:20)
[2025-04-09 07:54] VITALS: BP 98/60; PULSE 86; RESP 16; TEMP 37.1; O2SAT 98
[2025-04-09 08:04] VITALS: BP 98/60; PULSE 86; RESP 16; TEMP 37.1; O2SAT 98
[2025-04-09] MEDS: Gabapentin 300 MG CAPSULE 600 MG PO ×3 (08:19→21:28)
[2025-04-09] MEDS: Thiamine HCL 100 MG TABLET PO (08:19)
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
[2025-04-09] MEDS: hydrOXYzine HCL 25 MG TABLET PO (14:01)
[2025-04-09] MEDS: Lidocaine 4 % Patch ADH..PATCH 1 PATCH TRANSDERMA (19:05)
[2025-04-09] MEDS: Nicotine Polacrilex 2 MG GUM 4 MG BUCCAL (19:05)
[2025-04-09 20:00] VITALS: BP 116/69; PULSE 108; RESP 18; TEMP 36.9; O2SAT 95
[2025-04-09 21:28] VITALS: BP 125/79
[2025-04-09] MEDS: Prazosin HCL 1 MG CAPSULE PO (21:28)
[2025-04-09] MEDS: Mirtazapine 7.5 MG TABLET 22.5 MG PO (21:28)
[2025-04-09] MEDS: OLANZapine 10 MG TABLET 20 MG PO (21:29)
[2025-04-09] MEDS: Mirtazapine 7.5 MG TABLET PO (23:24)
[2025-04-10 07:32] VITALS: BP 100/61; PULSE 93; RESP 14; TEMP 37.3; O2SAT 95
[2025-04-10] MEDS: Thiamine HCL 100 MG TABLET PO (08:26)
[2025-04-10] MEDS: Gabapentin 300 MG CAPSULE 600 MG PO ×3 (08:26→22:06)
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
[2025-04-10] MEDS: hydrOXYzine HCL 25 MG TABLET PO (18:31)
[2025-04-10] MEDS: Lidocaine 4 % Patch ADH..PATCH 1 PATCH TRANSDERMA (18:31)
[2025-04-10] MEDS: Acetaminophen 325 MG TABLET 650 MG PO (21:16)
[2025-04-10] MEDS: Ibuprofen 600 MG TABLET PO (21:17)
[2025-04-10] MEDS: Nicotine Polacrilex 2 MG GUM 4 MG BUCCAL (21:17)
[2025-04-10 21:57] VITALS: BP 118/80; PULSE 99; RESP 16; TEMP 37.1; O2SAT 96
[2025-04-10] MEDS: OLANZapine 10 MG TABLET 20 MG PO (22:05)
[2025-04-10] MEDS: Mirtazapine 7.5 MG TABLET 22.5 MG PO (22:05)
[2025-04-10] MEDS: Prazosin HCL 1 MG CAPSULE PO (22:05)
[2025-04-10] MEDS: Mirtazapine 7.5 MG TABLET PO (23:32)
[2025-04-10] MEDS: Cyclobenzaprine HCl 10 MG TABLET PO (23:32)
[2025-04-11 08:00] VITALS: BP 102/63; PULSE 74; RESP 16; TEMP 37.1; O2SAT 97
[2025-04-11] MEDS: Gabapentin 300 MG CAPSULE 600 MG PO ×3 (08:23→22:02)
[2025-04-11] MEDS: Thiamine HCL 100 MG TABLET PO (08:23)
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
[2025-04-11] MEDS: hydrOXYzine HCL 25 MG TABLET PO (15:25)
[2025-04-11] MEDS: OLANZapine 10 MG TABLET 20 MG PO (19:48)
[2025-04-11 20:00] VITALS: BP 129/87; PULSE 89; RESP 16; TEMP 36.8; O2SAT 96
[2025-04-11] MEDS: Nicotine Polacrilex 2 MG GUM 4 MG BUCCAL (21:37)
[2025-04-11] MEDS: Cyclobenzaprine HCl 10 MG TABLET PO (22:01)
[2025-04-11 22:02] VITALS: BP 119/87
[2025-04-11] MEDS: Prazosin HCL 1 MG CAPSULE PO (22:02)
[2025-04-11] MEDS: Acetaminophen 325 MG TABLET 650 MG PO (22:03)
[2025-04-11] MEDS: Mirtazapine 7.5 MG TABLET 22.5 MG PO (22:03)
[2025-04-11] MEDS: Ibuprofen 600 MG TABLET PO (22:04)
[2025-04-12 07:10] VITALS: BP 94/70; PULSE 85; RESP 14; TEMP 36.4; O2SAT 96
[2025-04-12] MEDS: Gabapentin 300 MG CAPSULE 600 MG PO (08:14)
[2025-04-12] MEDS: Thiamine HCL 100 MG TABLET PO (08:14)
[2025-04-12 08:44] VITALS: BP 110/77; PULSE 150
== END 2025-04-12 09:00 | disposition home or self-care (01) | DRG 755 ==
LOC: HO.ED 21:16 → HO.PADLT16 04-03 11:45
PROVIDERS: Physician Assistant; Admitting Provider Psychiatry & Neurology Psychiatry; Emergency Provider Emergency Medicine; Visit Provider Psychiatry & Neurology Psychiatry
DX: F43.12 Post-traumatic stress disorder, chronic (principal); R45.851 Suicidal ideations; Z91.148 Patient's other noncompliance with medication regimen for other reason; G89.4 Chronic pain syndrome; F17.210 Nicotine dependence, cigarettes, uncomplicated; F10.90 Alcohol use, unspecified, uncomplicated; F12.90 Cannabis use, unspecified, uncomplicated; Z59.02 Unsheltered homelessness; Z71.6 Tobacco abuse counseling; Z86.73 Personal history of transient ischemic attack (TIA), and cerebral infarction without residual deficits; Z79.899 Other long term (current) drug therapy
CPT/HCPCS: 36415; 70450; 71101; 72125; 73030; 80053; 80143; 80179; 80307; 81001; 85025; 93005; 99285; S9485

== ENCOUNTER → 2025-04-02 19:52 | Outpatient (BNV) | payer OTHER, SELFPAY | PROVIDERS: Emergency Provider Emergency Medicine; Visit Provider Student in an Organized Health Care Education/Training Program | DX: I63.532 Cerebral infarction due to unspecified occlusion or stenosis of left posterior cerebral artery (principal); S22.31XA Fracture of one rib, right side, initial encounter for closed fracture; S49.91XA Unspecified injury of right shoulder and upper arm, initial encounter | CPT/HCPCS: 70450; 71101; 73030 ==

== ENCOUNTER → 2025-04-03 10:10 | Outpatient (BNV) | payer OTHER, SELFPAY | PROVIDERS: Admitting Provider Psychiatry & Neurology Psychiatry; Emergency Provider Emergency Medicine; Visit Provider Internal Medicine Cardiovascular Disease | DX: Z13.6 Encounter for screening for cardiovascular disorders (principal) | CPT/HCPCS: 93010 ==

== ENCOUNTER → 2025-04-03 11:40 | Outpatient (BNV) | payer OTHER, SELFPAY | PROVIDERS: Admitting Provider Psychiatry & Neurology Psychiatry; Emergency Provider Emergency Medicine; Visit Provider Psychiatry & Neurology Psychiatry | DX: F12.90 Cannabis use, unspecified, uncomplicated (principal); F43.11 Post-traumatic stress disorder, acute; G89.4 Chronic pain syndrome; Z86.73 Personal history of transient ischemic attack (TIA), and cerebral infarction without residual deficits; Z59.00 Homelessness unspecified; F10.90 Alcohol use, unspecified, uncomplicated | CPT/HCPCS: 99231; 99232; 99233 ==

== ENCOUNTER → 2025-04-03 11:40 | Outpatient (BNV) | payer OTHER, SELFPAY | PROVIDERS: Admitting Provider Psychiatry & Neurology Psychiatry; Emergency Provider Emergency Medicine; Visit Provider Psychiatry & Neurology Neurology | DX: Z86.73 Personal history of transient ischemic attack (TIA), and cerebral infarction without residual deficits (principal) | CPT/HCPCS: 99222 ==